=== PATIENT | female | born 1950 | race Caucasian/White ===

== ENCOUNTER 2021-08-11 14:46 | Inpatient (IN) ==
[2021-08-11] MEDS ORDERED: SODIUM CHLORIDE 0.9% 500 ML IV STA (16:52)
[2021-08-11] MEDS ORDERED: dexAMETHasone**PF** 10 MG/ML VIAL IV ONE (16:53)
[2021-08-11] MEDS ORDERED: ACETAMINOPHEN 500 MG TAB PO STA (16:53)
--- NOTE | 2021-08-11 16:59 | Emergency Department Note ---
Impression & Plan 2019 novel coronavirus-infected pneumonia (NCIP), Hypoxia, Weakness, Diarrhea, Myalgia ED Provider Note Provider: Dillon Sam MD DATE OF SERVICE: 08/11/2021 CHIEF COMPLAINT: Cough, shortness of breath/weakness HISTORY OF PRESENT ILLNESS: Patient is a 71-year-old female history of hyperte nsion, RLS, and rheumatoid arthritis on Plaquenil and Humira presenting here today reporting over the past 2 weeks she is developed predominantly chronic cough with occasional clear sputum and some generalized weakness and fatigue. Diffuse myalgias reported. Reports some subjective fevers at home. Patient states her stomach is not been sitting right and she is been nauseous at times. Some diarrhea reported. No falls reported. Patient denies taking Tylenol or Motrin today but is been more weak than normal. She is not vaccinated for Covid but not around anyone known positive for Covid. Her is well at home. REVIEW OF SYSTEMS: A total of 10 review of systems was obtained and negative except as stated above in the HPI. PAST MEDICAL HISTORY: As noted above MEDICATIONS: Reviewed home medications SOCIAL HISTORY: Lives at home with PHYSICAL EXAM: GENERAL: alert and oriented in no acute distress seated in wheelchair fatigued and tachypneic in appearance Head: normocephalic and atraumatic EYES: No injection, discharge or icterus. NECK: Trachea midline and supple. LUNGS: Airway patent. No retractions but somewhat tachypneic. Breath sounds clear HEART: Regular rate and rhythm. No chest wall tenderness ABDOMEN: Soft and non-tender, without guarding or rebound. SKIN: Acyanotic, warm, dry, without rashes EXTREMITIES: Without swelling, tenderness or deformity NEUROLOGICAL: No focal deficits. No aphasia. No facial droop or slurred speech. EK bpm sinus rhythm without PVC or PAC. No acute ST segment elevation or depression. QTC 439. CONTINUOUS CARDIAC MONITORING: was ordered and showed a heart rate of 80s to 110s bpm in normal sinus rhythm to sinus tachycardia Patient's laboratory studies and imaging reviewed. Differential includes Infection, dehydration, metabolic abnormality, hypo/hyperglycemia, electrolyte disturbance, anemia, hypoxia, cardiac sources, intracerebral event, toxicologic, neurologic, as well as other pathologies. IMPRESSION/MEDICAL DECISION MAKING: Patient presents hypoxic in the high 80s on room air with new oxygen requirement several liters nasal cannula now. Borderline fever with some tachycardia question possible infectious source. Cultures and lactate will be obtained. Covid test was sent and she is unvaccinated and this is high in the differential. Fairly benign abdomen on exam. EKG obtained. Basic labs were obtained in addition to the lactate and cultures. Dexamethasone given with concern for hypoxia and Covid. Given a small 500mL amount of IV fluid supplementation. Blood work without anemia or significant leukocytosis or leukopenia. The diarrhea was sent for stool culture and C. difficile however lower suspicion for this. Given some Tylenol and fentanyl for pain and fever. Evidence of a slight KATHRYN likely from dehydration with noted BUN. Borderline hyponatremia. Mild AST elevation likely consistent with Covid infection. No evidence of however significant acute hepatitis or pancreatitis based on labs. Chest x-ray concerning for multifocal inflammatory changes consistent with Covid. No troponin elevation is noted but CRP is elevated 6.99. C. difficile testing negative. Covid testing positive again and this is consistent with her presentation. Given her hypoxia and generalized weakness -- although on reassessment she is feeling a bit better -- feel that further care here at the hospital is indicated. Patient in agreement the hospitalist be contacted. DIAGNOSIS: Hypoxia, weakness, KATHRYN, COVID-19 pneumonia DISPOSITION: Hospitalist will evaluate Patient was agreeable with this plan. Past Med/Surg History Medical History (Updated 08/11/21 @ 19:02 by Dillon Sam M.D.) Hypertension Peptic ulcer Restless leg syndrome Restless leg syndrome Rheumatoid arthritis Rheumatoid arthritis Surgical History History of colonoscopy History of endoscopy Hx of cholecystectomy Hx of cystoscopy Hx of lithotripsy S/P cholecystectomy Family History Other Heart disease Hypertension Kidney disease Social History Smoking Status: Never smoker Second Hand Exposure: No; Hx Alcohol Use: No Hx Substance Use: No Preferred Language: Montenegrin Communication Ability: Effective Telesales Representative Required: No Beliefs That Will Affect Care: None Current Living Situation: Spouse Feels Safe at Home: Yes Assistive Devices: Glasses Allergies Allergies Allergy/AdvReac Type Severity Reaction Status Date / Time Penicillins Allergy Intermediate RASH Verified 07/15/18 08:10 Sulfa (Sulfonamide Allergy Mild Unknown rxn Verified 07/15/18 08:10 Antibiotics) flurbiprofen AdvReac Severe SYNCOPE Verified 07/15/18 08:10 Home Meds Home Medications Medication Instructions Recorded Confirmed cholecalciferol (vitamin D3) 25 1,000 unit PO DAILY 07/13/18 11/23/18 mcg (1,000 unit) tablet (Vitamin D3) lisinopril 5 mg tablet 5 mg PO DAILY 07/13/18 11/23/18 adalimumab 40 mg/0.8 mL 40 mg SUBCUT UD 11/23/18 11/23/18 subcutaneous syringe kit (Humira) alendronate 70 mg tablet (Fosamax) 70 mg PO WK 11/23/18 11/23/18 calcium carbonate 500 mg (1,250 1 tab PO BID 11/23/18 11/23/18 mg)-vitamin D3 200 unit tablet (Calcium 500 + D) hydroxychloroquine 200 mg tablet 200 mg PO DAILY 11/23/18 11/23/18 (Plaquenil) methylprednisolone 32 mg tablet 32 mg PO UD 11/23/18 11/23/18 (Medrol) ondansetron HCl 4 mg tablet 4 mg PO Q12 PRN 11/23/18 11/23/18 (Zofran) ropinirole 1 mg tablet (Requip) 1 mg PO BID 11/23/18 11/23/18 trazodone 50 mg tablet 50 mg PO HS PRN 11/23/18 11/23/18 Previous Rx's Medication Instructions Recorded cyclobenzaprine 5 mg tablet 5 mg PO TID PRN #30 tab 11/23/18 Results & Data (ED) Vital Signs Vital Signs - 24 hr 08/11/21 15:21 08/11/21 17:30 08/11/21 18:00 Temperature 37.9 C H Temperature Source Temporal Artery Scan Pulse Rate 105 H 96 H 96 H Respiratory Rate 22 18 18 Blood Pressure 154/96 H 150/107 H 155/122 H Blood Pressure Mean 115 121 133 Pulse Oximetry 89 L 93 93 Oxygen Delivery Method Room Air Sepsis Recent Fever Within 48 Hours No Sepsis New/Unexplained Change in Mental Status No Sepsis Action Taken by Nursing No Action Required 08/11/21 18:30 Temperature Temperature Source Pulse Rate 90 Respiratory Rate 26 H Blood Pressure Blood Pressure Mean Pulse Oximetry 94 Oxygen Delivery Method Sepsis Recent Fever Within 48 Hours Sepsis New/Unexplained Change in Mental Status Sepsis Action Taken by Nursing Laboratory Data Result diagrams: 08/11/21 17:33 08/11/21 17:33 Lab Results 08/11/21 08/11/21 08/11/21 Range/Units 17:09 17:09 17:33 WBC 7.56 (4.8-10.8) K/uL RBC 5.54 H (4.2-5.4) M/uL Hgb 15.4 (12.0-16.0) g/dL Hct 48.0 H (37-47) % MCV 86.6 (80-100) fL MCH 27.8 (25-34) pg MCHC 32.1 (32-36) g/dL RDW Std Deviation 74.0 H (36.4-46.3) fL RDW Coeff of Jagjit 23.3 H (11.5-14.5) % Plt Count 268 (130-400) K/uL MPV 9.6 (7.4-10.4) fL Immature Gran % (Auto) 0.1 % Neut % (Auto) 88.7 % Lymph % (Auto) 6.5 % [place] % (Auto) 4.6 % Eos % (Auto) 0.0 % Baso % (Auto) 0.1 % Neut # (Auto) 6.70 H (1.4-6.5) K/uL Lymph # (Auto) 0.49 L (1.2-3.4) K/uL [place] # (Auto) 0.35 (0.11-0.59) K/uL Eos # (Auto) 0.00 (0-0.5) K/uL Baso # (Auto) 0.01 (0-0.2) K/uL Immature Gran # (Auto) 0.01 (0.00-0.02) K/uL Anisocytosis Present Echinocytes 1+ Acanthocytes (Spur) 1+ PT (9.0-12.0) Seconds INR (0.9-1.1) Sodium (136-145) mmol/L Potassium (3.5-5.1) mmol/L Chloride (98-107) mmol/L Carbon Dioxide (21-32) mmol/L Anion Gap (3-11) BUN (7-18) mg/dl Creatinine (0.6-1.2) mg/dl Est Cr Clr Drug Dosing Est GFR ( Amer) ml/min Est GFR (Non-Af Amer) ml/min BUN/Creatinine Ratio (10-20) Glucose (70-99) mg/dl Calcium (8.5-10.1) mg/dl Total Bilirubin (0.2-1) mg/dl AST (15-37) U/L ALT (12-78) U/L Alkaline Phosphatase (45-117) U/L Troponin I (0-0.045) ng/ml C-Reactive Protein (0-0.29) mg/dl Total Protein (6.4-8.2) gm/dl Albumin (3.4-5.0) gm/dl Globulin (2.5-4.0) gm/dl Albumin/Globulin Ratio (0.9-2) Lipase (73-393) U/L Procalcitonin (0-0.5) ng/ml Specimen Hemolysis Stl C. diff Tox B Gene (Neg) COVID-19 Eval Order Covid19 at [facility] SARS-CoV-2 (PCR) POSITIVE A* (Negative) 08/11/21 08/11/21 08/11/21 Range/Units 17:33 17:33 17:33 WBC (4.8-10.8) K/uL RBC (4.2-5.4) M/uL Hgb (12.0-16.0) g/dL Hct (37-47) % MCV (80-100) fL MCH (25-34) pg MCHC (32-36) g/dL RDW Std Deviation (36.4-46.3) fL RDW Coeff of Jagjit (11.5-14.5) % Plt Count (130-400) K/uL MPV (7.4-10.4) fL Immature Gran % (Auto) % Neut % (Auto) % Lymph % (Auto) % [place] % (Auto) % Eos % (Auto) % Baso % (Auto) % Neut # (Auto) (1.4-6.5) K/uL Lymph # (Auto) (1.2-3.4) K/uL [place] # (Auto) (0.11-0.59) K/uL Eos # (Auto) (0-0.5) K/uL Baso # (Auto) (0-0.2) K/uL Immature Gran # (Auto) (0.00-0.02) K/uL Anisocytosis Echinocytes Acanthocytes (Spur) PT 10.5 (9.0-12.0) Seconds INR 1.0 (0.9-1.1) Sodium 135 L (136-145) mmol/L Potassium 3.9 (3.5-5.1) mmol/L Chloride 107 (98-107) mmol/L Carbon Dioxide 19 L (21-32) mmol/L Anion Gap 9.0 (3-11) BUN 39 H (7-18) mg/dl Creatinine 1.66 H (0.6-1.2) mg/dl Est Cr Clr Drug Dosing Not Reportable Est GFR ( Amer) 35.3 ml/min Est GFR (Non-Af Amer) 30.5 ml/min BUN/Creatinine Ratio 23.2 H (10-20) Glucose 140 H (70-99) mg/dl Calcium 9.3 (8.5-10.1) mg/dl Total Bilirubin 0.4 (0.2-1) mg/dl AST 49 H (15-37) U/L ALT 28 (12-78) U/L Alkaline Phosphatase 73 (45-117) U/L Troponin I < 0.015 (0-0.045) ng/ml C-Reactive Protein 6.99 H (0-0.29) mg/dl Total Protein 7.7 (6.4-8.2) gm/dl Albumin 3.4 (3.4-5.0) gm/dl Globulin 4.3 H (2.5-4.0) gm/dl Albumin/Globulin Ratio 0.8 L (0.9-2) Lipase 224 (73-393) U/L Procalcitonin 0.27 (0-0.5) ng/ml Specimen Hemolysis Stl C. diff Tox B Gene (Neg) COVID-19 Eval Order SARS-CoV-2 (PCR) (Negative) 08/11/21 Range/Units 17:40 WBC (4.8-10.8) K/uL RBC (4.2-5.4) M/uL Hgb (12.0-16.0) g/dL Hct (37-47) % MCV (80-100) fL MCH (25-34) pg MCHC (32-36) g/dL RDW Std Deviation (36.4-46.3) fL RDW Coeff of Jagjit (11.5-14.5) % Plt Count (130-400) K/uL MPV (7.4-10.4) fL Immature Gran % (Auto) % Neut % (Auto) % Lymph % (Auto) % [place] % (Auto) % Eos % (Auto) % Baso % (Auto) % Neut # (Auto) (1.4-6.5) K/uL Lymph # (Auto) (1.2-3.4) K/uL [place] # (Auto) (0.11-0.59) K/uL Eos # (Auto) (0-0.5) K/uL Baso # (Auto) (0-0.2) K/uL Immature Gran # (Auto) (0.00-0.02) K/uL Anisocytosis Echinocytes Acanthocytes (Spur) PT (9.0-12.0) Seconds INR (0.9-1.1) Sodium (136-145) mmol/L Potassium (3.5-5.1) mmol/L Chloride (98-107) mmol/L Carbon Dioxide (21-32) mmol/L Anion Gap (3-11) BUN (7-18) mg/dl Creatinine (0.6-1.2) mg/dl Est Cr Clr Drug Dosing Est GFR ( Amer) ml/min Est GFR (Non-Af Amer) ml/min BUN/Creatinine Ratio (10-20) Glucose (70-99) mg/dl Calcium (8.5-10.1) mg/dl Total Bilirubin (0.2-1) mg/dl AST (15-37) U/L ALT (12-78) U/L Alkaline Phosphatase (45-117) U/L Troponin I (0-0.045) ng/ml C-Reactive Protein (0-0.29) mg/dl Total Protein (6.4-8.2) gm/dl Albumin (3.4-5.0) gm/dl Globulin (2.5-4.0) gm/dl Albumin/Globulin Ratio (0.9-2) Lipase (73-393) U/L Procalcitonin (0-0.5) ng/ml Specimen Hemolysis Stl C. diff Tox B Gene Negative Cdiff Gene (Neg) COVID-19 Eval Order SARS-CoV-2 (PCR) (Negative) Administered Medications Discontinued Medications Acetaminophen (Acetaminophen 500 Mg Tab) 1,000 mg PO NOW STA Stop: 08/11/21 16:54 Last Admin: 08/11/21 17:44 Dose: 1,000 mg Documented by: [id number] Dexamethasone Sodium Phosphate (DexamethasonePf 10 Mg/Ml Vial) 6 mg IV NOW ONE Stop: 08/11/21 16:54 Last Admin: 08/11/21 17:47 Dose: 6 mg Documented by: [id number] Fentanyl Citrate (Fentanyl Citrate 100 Mcg/2 Ml Vial) 50 mcg IV NOW STA Stop: 08/11/21 17:43 Last Admin: 08/11/21 17:50 Dose: 50 mcg Documented by: [id number] Sodium Chloride (Nss) 500 mls @ 999 mls/hr IV .Q31M STA Stop: 08/11/21 17:22 Last Infusion: 08/11/21 18:21 Dose: 0 mls/hr Documented by: [id number] Admin: 08/11/21 17:47 Dose: 999 mls/hr Documented by: [id number] Discharge Plan Visit Data Chief Complaint: Cough Stated Complaint: COUGH NAUSEA ED Provider: Dillon Sam Discharge Problem: 2019 novel coronavirus-infected pneumonia (NCIP), Hypoxia, Weakness, Diarrhea, Myalgia Patient Disposition: Being Evaluated by Hospitalist Forms Stand Alone Forms: [facility] Prescriptions Prescriptions: No Action ropinirole [Requip] 1 mg tablet 1 mg PO BID RF: 0 trazodone 50 mg Tablet 50 mg PO HS PRN (Reason: Sleep) RF: 0 ondansetron HCl [Zofran] 4 mg Tablet 4 mg PO Q12 PRN (Reason: Nausea) RF: 0 methylprednisolone [Medrol] 32 mg tablet 32 mg PO UD RF: 0 alendronate [Fosamax] 70 mg tablet 70 mg PO WK RF: 0 hydroxychloroquine [Plaquenil] 200 mg tablet 200 mg PO DAILY RF: 0 calcium carbonate-vitamin D3 [Calcium 500 + D] 500 mg(1,250mg) -200 unit Tablet 1 tab PO BID RF: 0 cyclobenzaprine 5 mg tablet 5 mg PO TID PRN (Reason: muscle spasm) Qty: 30 RF: 0 adalimumab [Humira] 40 mg/0.8 mL Syringe Kit 40 mg SUBCUT UD RF: 0 lisinopril 5 mg Tablet 5 mg PO DAILY RF: 0 cholecalciferol (vitamin D3) [Vitamin D3] 1,000 unit Tablet 1,000 unit PO DAILY RF: 0 Referrals Referrals: Dillon Viera PA-C [Primary Care Provider] -
[2021-08-11] MEDS ORDERED: fentaNYL citrate 100 MCG/2 ML VIAL IV STA (17:42)
[2021-08-11 17:45] LABS: Basophils # (auto) 0.01 K/uL (0-0.2); Basophils % (auto) 0.1 %; Hemoglobin 15.4 g/dL (12.0-16.0); Immature Granulocytes # (auto) 0.01 K/uL (0.00-0.02); Immature Granulocytes % (auto) 0.1 %; Lymphocytes # (auto) 0.49 K/uL (1.2-3.4); Lymphocytes % (auto) 6.5 %; Mean Corpuscular Hemoglobin 27.8 pg (25-34); Mean Corpuscular Hgb Conc 32.1 g/dL (32-36); Mean Corpuscular Volume 86.6 fL (80-100); Mean Platelet Volume 9.6 fL (7.4-10.4); Monocytes # (auto) 0.35 K/uL (0.11-0.59); Monocytes % (auto) 4.6 %; Neutrophils % (auto) 88.7 %; Platelet Count 268 K/uL (130-400); RDW Coefficient of Variation 23.3 % (11.5-14.5); Red Blood Count 5.54 M/uL (4.2-5.4); White Blood Count 7.56 K/uL (4.8-10.8)
[2021-08-11 17:54] LABS: Prothrombin Time 10.5 Seconds (9.0-12.0)
[2021-08-11 18:00] LABS: Acanthocytes 1+; Anisocytosis Present; Echinocytes 1+
[2021-08-11 18:07] LABS: Alanine Aminotransferase 28 U/L (12-78); Albumin Level 3.4 gm/dl (3.4-5.0); Aspartate Aminotransferase 49 U/L (15-37); BUN Creatinine Ratio 23.2 (10-20); Blood Urea Nitrogen 39 mg/dl (7-18); Calcium 9.3 mg/dl (8.5-10.1); Carbon Dioxide 19 mmol/L (21-32); Chloride 107 mmol/L (98-107); Est GFR (African American) 35.3 ml/min; Est GFR (Non-African American) 30.5 ml/min; Glucose 140 mg/dl (70-99); Lipase 224 U/L (73-393); Potassium 3.9 mmol/L (3.5-5.1); Sodium 135 mmol/L (136-145)
[2021-08-11 18:19] LABS: Albumin Globulin Ratio 0.8 (0.9-2); Alkaline Phosphatase 73 U/L (45-117); Bilirubin,Total 0.4 mg/dl (0.2-1); C Reactive Protein 6.99 mg/dl (0-0.29); Globulin 4.3 gm/dl (2.5-4.0); Total Protein 7.7 gm/dl (6.4-8.2); Troponin I < 0.015 ng/ml (0-0.045)
--- NOTE | 2021-08-11 19:17 | XRay Report ---
SINGLE VIEW CHEST CLINICAL HISTORY: Dyspnea. FINDINGS: An AP, portable, upright chest radiograph is compared to study dated 06/20/2016. A hiatal he rnia is noted. The cardiomediastinal silhouette is unremarkable. Multifocal airspace consolidation is seen throughout both lungs, most confluent in the right upper lobe. No large pleural effusion or pne umothorax is identified. The skeletal structures are osteopenic. The bony thorax is grossly intact. IMPRESSION: Multifocal airspace consolidation is typical for pneumonia. Clinical correlation will be required and radiographic follow-up to resolution is recommended. ACT 112: Negative or not required by law. Electronically signed by: Jamie Garcia M.D. 08/11/2021 7:16 PM
[2021-08-11] MEDS ORDERED: LEVALBUTEROL TARTRATE 15 GM HFA.AER.AD INH STA (19:46)
[2021-08-11] MEDS ORDERED: NSS + 20MEQ KCL 20 MEQ/1,000 ML BAG IV ONE (19:46)
[2021-08-11 19:59] LABS: Magnesium 2.7 mg/dl (1.8-2.4)
--- NOTE | 2021-08-11 21:18 | History & Physical Report ---
Date of Service August 11, 2021 Assessment & Plan (1) Hypoxia: Plan: Secondary to severe COVID-19 pneumonia hypertension, BP on the lower side ARF secondary to illness, poor p.o. intake rheumatoid arthritis, stable on regimen prediabetes, recent outpatient hemoglobin A1c of 6.02 June 2021 chronic GI bleed as per records, hemoglobin within normal limits Medical telemetry Supplemental O2 Decadron and Remdesivir for severe COVID-19 pneumonia. Patient refusing Remdesivir for now. Pulmonary consultation if without improvement Baseline UA, monitor creatinine response to IVF, hold home inhibitor until creatinine back to baseline DVT prophylaxis SCDs RE chronic GI bleed as per records Full code Patient requests for her to be updated of progress. Mr. Sathya Thomas, contact #[phone]. Text document was generated using [employer] voice recognition software. It may contain grammatical or spelling errors. Kindly contact undersigned for clarification of any documentation item in question. History of Present Illness Chief Complaint: Cough, shortness of breath Primary Care Provider: Dillon Viera PA-C History obtained from patient and records. Medical history significant for hypertension, rheumatoid arthritis, GERD, prediabetes, chronic GI bleed as per records. Last confinement June 2016 for UGI B secondary to esophageal ulcer. Patient discharged on Protonix course. 2 weeks history of cough productive of clear sputum, subjective fever at home, nausea, poor appetite, muscle aches, loose stools without abdominal pain. Patient denies chest pain. Worsening shortness of breath. Decadron administered at the ER after positive COVID-19 test noted. Medical History as above Surgical History : ESWL, cholecystectomy Family History : Colon cancer, heart disease, hypertension, stroke Personal/Social history : Non-smoker, no EtOH intake, retired [employer] Allergies Allergy/AdvReac Type Severity Reaction Status Date / Time Penicillins Allergy Intermediate RASH Verified 08/11/21 20:16 Sulfa (Sulfonamide Allergy Mild Unknown rxn Verified 08/11/21 20:16 Antibiotics) tofacitinib [From Xeljanz] Allergy Unknown Verified 08/11/21 20:46 flurbiprofen AdvReac Severe SYNCOPE Verified 08/11/21 20:16 Home Medications Medication Instructions Recorded Confirmed Type lisinopril 5 mg tablet 5 mg PO DAILY 07/13/18 08/11/21 History alendronate 70 mg tablet (Fosamax) 70 mg PO WK 11/23/18 08/11/21 History calcium carbonate 500 mg (1,250 1 tab PO BID 11/23/18 08/11/21 History mg)-vitamin D3 200 unit tablet (Calcium 500 + D) ondansetron HCl 4 mg tablet 4 mg PO Q8 PRN 11/23/18 08/11/21 History (Zofran) trazodone 50 mg tablet 50 mg PO HS 11/23/18 08/11/21 History ferrous sulfate 325 mg (65 mg 325 mg PO DAILY 08/11/21 08/11/21 History iron) tablet (iron) gabapentin 400 mg capsule 400 mg PO QID 08/11/21 08/11/21 History pramipexole 0.5 mg tablet 0.5 mg PO TID 08/11/21 08/11/21 History Past Med/Surg History Medical History (Updated 08/11/21 @ 19:02 by Dillon Sam M.D.) Hypertension Peptic ulcer Restless leg syndrome Restless leg syndrome Rheumatoid arthritis Rheumatoid arthritis Surgical History History of colonoscopy History of endoscopy Hx of cholecystectomy Hx of cystoscopy Hx of lithotripsy S/P cholecystectomy Family History Other Heart disease Hypertension Kidney disease Social History Smoking Status: Never smoker Second Hand Exposure: Yes; Do You Dip or Chew Tobacco: No; Tobacco Cessation Education Requested by Patient: No Hx Alcohol Use: No Hx Substance Use: No Preferred Language: Tristanian Communication Ability: Effective Certified Orthotist/Pedorthist Required: No Beliefs That Will Affect Care: None Current Living Situation: Spouse Other Information That Helps Us Care for You: No Feels Safe at Home: Yes Safety Concerns: Feels Safe At This Time Assistive Devices: Walker Assistive Devices Comment: requiring oxygen now and assiance with ambulation Review of Systems Review of Systems: As per HPI, all 10 systems reviewed, all other ROS negative Physical Exam Physical Exam: GENERAL: Comfortable, slightly anxious, pleasant, looks younger for stated age, obese, no respiratory distress SKIN: Normal color, warm HEENT: Bespectacled, [place] palpebral conjunctivae, no ptosis, dry buccal mucosa, nasal cannula in place NECK : Supple, short neck, no tenderness CHEST : Decreased breath sounds, occasional expiratory wheezes, no tenderness HEART : RRR, no obvious murmurs ABDOMEN: Some distention, nontender EXTREMITIES : Minimal LE swelling, no LE tenderness, no other conspicuous deformities noted NEUROLOGIC : Coherent, no facial asymmetry, no other gross focality Results & Data Results & Data ([facility]) Vital Signs (Past 12 Hours) Vital Signs Temp Pulse Resp BP Pulse Ox 08/11/21 21:00 77 20 96 08/11/21 20:30 76 21 106/65 08/11/21 20:00 75 23 94 08/11/21 19:30 85 15 08/11/21 19:00 87 19 93 08/11/21 18:30 90 26 H 94 08/11/21 18:00 96 H 18 155/122 H 93 08/11/21 17:30 96 H 18 150/107 H 93 08/11/21 15:21 37.9 C H 105 H 22 154/96 H 89 L Laboratory Results Laboratory Results WBC 7.56 K/uL (4.8-10.8) 08/11/21 17:33 RBC 5.54 M/uL (4.2-5.4) H 08/11/21 17:33 Hgb 15.4 g/dL (12.0-16.0) 08/11/21 17:33 Hct 48.0 % (37-47) H 08/11/21 17:33 MCV 86.6 fL (80-100) 08/11/21 17:33 MCH 27.8 pg (25-34) 08/11/21 17:33 MCHC 32.1 g/dL (32-36) 08/11/21 17:33 RDW Std Deviation 74.0 fL (36.4-46.3) H 08/11/21 17:33 RDW Coeff of Jagjit 23.3 % (11.5-14.5) H 08/11/21 17:33 Plt Count 268 K/uL (130-400) 08/11/21 17:33 MPV 9.6 fL (7.4-10.4) 08/11/21 17:33 Immature Gran % (Auto) 0.1 % 08/11/21 17:33 Neut % (Auto) 88.7 % 08/11/21 17:33 Lymph % (Auto) 6.5 % 08/11/21 17:33 [place] % (Auto) 4.6 % 08/11/21 17:33 Eos % (Auto) 0.0 % 08/11/21 17:33 Baso % (Auto) 0.1 % 08/11/21 17:33 Neut # (Auto) 6.70 K/uL (1.4-6.5) H 08/11/21 17:33 Lymph # (Auto) 0.49 K/uL (1.2-3.4) L 08/11/21 17:33 [place] # (Auto) 0.35 K/uL (0.11-0.59) 08/11/21 17:33 Eos # (Auto) 0.00 K/uL (0-0.5) 08/11/21 17:33 Baso # (Auto) 0.01 K/uL (0-0.2) 08/11/21 17: Immature Gran # (Auto) 0.01 K/uL (0.00-0.02) 08/11/21 17:33 Anisocytosis Present 08/11/21 17:33 Echinocytes 1+ 08/11/21 17:33 Acanthocytes (Spur) 1+ 08/11/21 17:33 PT 10.5 Seconds (9.0-12.0) 08/11/21 17:33 INR 1.0 (0.9-1.1) 08/11/21 17:33 Sodium 135 mmol/L (136-145) L 08/11/21 17:33 Potassium 3.9 mmol/L (3.5-5.1) 08/11/21 17:33 Chloride 107 mmol/L (98-107) 08/11/21 17:33 Carbon Dioxide 19 mmol/L (21-32) L 08/11/21 17:33 Anion Gap 9.0 (3-11) 08/11/21 17:33 BUN 39 mg/dl (7-18) H 08/11/21 17:33 Creatinine 1.66 mg/dl (0.6-1.2) H 08/11/21 17:33 Est Cr Clr Drug Dosing Not Reportable 08/11/21 17:33 Est GFR ( Amer) 35.3 ml/min 08/11/21 17:33 Est GFR (Non-Af Amer) 30.5 ml/min 08/11/21 17:33 BUN/Creatinine Ratio 23.2 (10-20) H 08/11/21 17:33 Glucose 140 mg/dl (70-99) H 08/11/21 17:33 Lactate 1.5 mmol/L (0.4-2.0) 08/11/21 18:33 Calcium 9.3 mg/dl (8.5-10.1) 08/11/21 17:33 Magnesium 2.7 mg/dl (1.8-2.4) H 08/11/21 17:33 Total Bilirubin 0.4 mg/dl (0.2-1) 08/11/21 17:33 AST 49 U/L (15-37) H 08/11/21 17:33 ALT 28 U/L (12-78) 08/11/21 17:33 Alkaline Phosphatase 73 U/L (45-117) 08/11/21 17:33 Troponin I < 0.015 ng/ml (0-0.045) 08/11/21 17:33 C-Reactive Protein 6.99 mg/dl (0-0.29) H 08/11/21 17:33 Total Protein 7.7 gm/dl (6.4-8.2) 08/11/21 17:33 Albumin 3.4 gm/dl (3.4-5.0) 08/11/21 17:33 Globulin 4.3 gm/dl (2.5-4.0) H 08/11/21 17:33 Albumin/Globulin Ratio 0.8 (0.9-2) L 08/11/21 17:33 Lipase 224 U/L (73-393) 08/11/21 17:33 Procalcitonin 0.27 ng/ml (0-0.5) 08/11/21 17:33 Specimen Hemolysis 08/11/21 17:33 Stl C. diff Tox B Gene Negative Cdiff Gene (Neg) 08/11/21 17:40 COVID-19 Eval Order Covid19 at [facility] 08/11/21 17:09 SARS-CoV-2 (PCR) POSITIVE (Negative) A* 08/11/21 17:09 Impressions Chest X-Ray 10/10/21 16:52 SINGLE VIEW CHEST CLINICAL HISTORY: Dyspnea. FINDINGS: An AP, portable, upright chest radiograph is compared to study dated 06/20/2016. A hiatal hernia is noted. The cardiomediastinal silhouette is unremarkable. Multifocal airspace consolidation is seen throughout both lungs, most confluent in the right upper lobe. No large pleural effusion or pneumothorax is identified. The skeletal structures are osteopenic. The bony thorax is grossly intact. IMPRESSION: Multifocal airspace consolidation is typical for pneumonia. Clinical correlation will be required and radiographic follow-up to resolution is recommended. ACT 112: Negative or not required by law. Electronically signed by: Jamie Garcia M.D. 08/11/2021 7:16 PM Diagnostic Findings EKG as per my interpretation rate 95, NSR, LAD, LAFB, T wave abnormalities inferior leads
[2021-08-11] MEDS ORDERED: LEVALBUTEROL TARTRATE 15 GM HFA.AER.AD INH PRN (23:54)
[2021-08-12 06:34] LABS: Hematocrit (blood only) 40.9 % (37-47); Hemoglobin 13.2 g/dL (12.0-16.0); Lymphocytes # (auto) 0.28 K/uL (1.2-3.4); Mean Corpuscular Hemoglobin 27.6 pg (25-34); Mean Corpuscular Hgb Conc 32.3 g/dL (32-36); Mean Corpuscular Volume 85.6 fL (80-100); Mean Platelet Volume 10.2 fL (7.4-10.4); Monocytes # (auto) 0.17 K/uL (0.11-0.59); Neutrophils # (auto) 2.36 K/uL (1.4-6.5); Platelet Count 224 K/uL (130-400); RDW Coefficient of Variation 23.1 % (11.5-14.5); RDW Standard Deviation 71.8 fL (36.4-46.3); Red Blood Count 4.78 M/uL (4.2-5.4); White Blood Count 2.81 K/uL (4.8-10.8)
[2021-08-12 06:58] LABS: BUN Creatinine Ratio 38.1 (10-20); Calcium 8.1 mg/dl (8.5-10.1); Creatinine Clr Calc Pharmacy 45.9 ml/min; Est GFR (African American) 62.9 ml/min; Est GFR (Non-African American) 54.3 ml/min; Potassium 3.5 mmol/L (3.5-5.1)
[2021-08-12 07:12] LABS: Thyroid Stimulating Hormone 0.204 uIu/ml (0.300-4.500)
[2021-08-12 07:20] LABS: Anisocytosis Present; Echinocytes 1+
[2021-08-12 07:31] LABS: T4 Free Thyroxine 1.43 ng/dl (0.8-1.6)
[2021-08-12] MEDS ORDERED: PNEUMOCOCCAL POLYSACCHARIDES 25 MCG/0.5 ML VIAL/SYR IM ONE (08:00)
[2021-08-12] MEDS: FERROUS SULFATE 325 MG TAB PO SCH (08:03)
[2021-08-12] MEDS: dexAMETHasone 6 MG in SYRINGE 0 ML IV SCH (08:03)
[2021-08-12] MEDS: GABAPENTIN 400 MG CAP PO SCH ×4 (08:04→19:59)
[2021-08-12] MEDS: PRAMIPEXOLE DIHYDROCHLO 0.5 MG TAB PO SCH ×3 (08:04→19:59)
[2021-08-12 09:02] LABS: Appearance Urine Cloudy (Clear); Bacteria Urine Automated 4+ (Negative); Bilirubin Urine Negative (Negative); Blood Urine 2+ (Negative); Color Urine Dark Yellow; Epithelial Cell Urine Auto >30 /lpf (0-5); Glucose Urine UA Negative (Negative); Ketones Urine Negative (Negative); Leukocyte Esterase Urine 2+ (Negative); Nitrite Urine Negative (Negative); Protein Urine 2+ (Negative); Specific Gravity Urine 1.022 (1.000-1.030); Urobilinogen Urine Negative (Negative); WBC Urine Automated >30 /hpf (0-5); pH Urine 5.5 (4.5-7.5)
--- NOTE | 2021-08-12 14:11 | Electrocardiogram Report ---
Test Reason : Blood Pressure : / mmHG Vent. Rate : 097 BPM Atrial Rate : 097 BPM P-R Int : 172 ms QRS Dur : 086 ms QT Int : 346 ms P-R-T Axes : 017 -09 011 degrees QTc Int : 439 ms Poor data quality, interpretation may be adversely affected Sinus rhythm Poor R wave progression, consider anterior [place] vs. lead placement vs. LVH Abnormal ECG When compared with ECG of 22-JUN-2016 06:43, Significant changes have occurred Confirmed by Aaron Cristina ([id number]) on 08/12/2021 2:11:27 PM Referred By: REFERRED SELF Confirmed By:Aaron Cristina
[2021-08-12] MEDS ORDERED: REMDESIVIR 200 MG in SODIUM CHLORIDE 0.9% 210 ML IV ONE (17:00)
[2021-08-12] MEDS: guaiFENesin 200 MG TAB PO SCH ×2 (17:53→23:35)
[2021-08-12] MEDS ORDERED: Nursing to Pharmacy Communication SCH (18:45)
[2021-08-12] MEDS: SODIUM CHLORIDE 0.9% 10ML FLUSH IV SCH (20:00)
[2021-08-12] MEDS: traZODone HCL 50 MG TAB PO SCH (20:00)
--- NOTE | 2021-08-12 23:42 | Hospitalist Progress Note ---
Date of Service August 12, 2021 Assessment & Plan (1) 2019 novel coronavirus-infected pneumonia (NCIP): (2) Hypoxia: Plan: COVID-19 pneumonia Present on admission with worsening SOB associated with Hypoxia Testing Positive for COVID 19 Pt did not vaccinate Pt was started on Dexamethasone 6mg IV daily CXR showed Multifocal airspace consolidation is typical for pneumonia Continue dexametasone 6mg daily Admitting team discussed with pt about Redemsivir Pt requested to get Remdesevir Major sides effect discussed such as acute liver failure Will monitor liver enzymes while on Remdesivir Will monitor inflammatory markers such as CRP, ferritin, ESR Continue neb treatment Continue oxygen supplement Patient was encouraged to probe KATHRYN Possible related to poor intake Creatinine 1.6 on admission Creatinine improves to 1.2 Hypertension Continue monitor BP DVT prophylaxis SCDs RE chronic GI bleed as per records Full code Patient requests for her to be updated of progress. Mr. Sathya Thomas, contact #[phone]. Admission and Anticipated Discharge Date Admission Date: August 11, 2021 Subjective Pt was seen and examined for follow up of SOB due to covid 19 Lying in be with no acute distress Pt said that her breathing stable Continue required oxygen supplement Review of Systems Review of Systems: All systems reviewed & are unremarkable except as noted in Subjective Physical Exam 2 Physical Exam: General- No acute distress Head- atraumatic Eyes- PERRL, EOMI, ENT- oropharynx clear Neck- supple, no JVD Lungs- +diminished BS Heart- regular rhythm; no murmur Abdomen- normal bowel sounds, soft, nontender Extremities- no calf tenderness Neuro- alert, oriented x 3; PERRL, EOMI; no facial palsy; no dysarthria Skin- warm & dry Results & Data Results & Data ([facility]) Vital Signs (Past 12 Hours) Vital Signs Temp Pulse Pulse Resp BP Pulse Ox 08/12/21 23:38 37.3 C 110 H 16 151/69 H 94 08/12/21 19:50 36.4 C L 08/12/21 19:02 37.6 C H 87 20 123/64 92 08/12/21 15:39 93 H 08/12/21 15:15 36.5 C 91 H 18 114/79 90 08/12/21 11:45 36.5 C 81 18 115/73 91
[2021-08-13] MEDS: CALCIUM CARBONATE 500 MG CHEWABLE TAB PO PRN ×2 (00:19→11:59)
[2021-08-13] MEDS: ACETAMINOPHEN 325 MG TAB PO PRN ×2 (01:05→05:21)
[2021-08-13] MEDS: guaiFENesin 200 MG TAB PO SCH ×4 (05:21→20:45)
[2021-08-13] MEDS: dexAMETHasone 6 MG in SYRINGE 0 ML IV SCH (08:17)
[2021-08-13] MEDS: PRAMIPEXOLE DIHYDROCHLO 0.5 MG TAB PO SCH ×3 (08:18→20:45)
[2021-08-13] MEDS: FERROUS SULFATE 325 MG TAB PO SCH (08:18)
[2021-08-13] MEDS: GABAPENTIN 400 MG CAP PO SCH ×4 (08:18→20:46)
[2021-08-13 09:28] LABS: Albumin Globulin Ratio 0.7 (0.9-2); Albumin Level 2.3 gm/dl (3.4-5.0); BUN Creatinine Ratio 33.9 (10-20); Bilirubin,Total 0.3 mg/dl (0.2-1); C Reactive Protein 2.41 mg/dl (0-0.29); Calcium 8.4 mg/dl (8.5-10.1); Creatinine Clr Calc Pharmacy 46.8 ml/min; Est GFR (African American) 62.9 ml/min; Est GFR (Non-African American) 54.3 ml/min; Ferritin 366.9 ng/ml (8-388); Globulin 3.4 gm/dl (2.5-4.0); Potassium 3.9 mmol/L (3.5-5.1); Total Protein 5.7 gm/dl (6.4-8.2)
--- NOTE | 2021-08-13 15:20 | Electrocardiogram Report ---
Test Reason : Blood Pressure : / mmHG Vent. Rate : 113 BPM Atrial Rate : 113 BPM P-R Int : 150 ms QRS Dur : 066 ms QT Int : 282 ms P-R-T Axes : 047 -14 036 degrees QTc Int : 386 ms Sinus tachycardia Low voltage QRS Cannot rule out Inferior infarct (cited on or before 13-AUG-2021) Abnormal ECG When compared with ECG of 11-AUG-2021 17:56, Criteria for Anterior infarct are no longer Present Criteria for Anterolateral infarct are no longer Present Confirmed by Aaron Cristina ([id number]) on 08/13/2021 3:20:37 PM Referred By: REFERRED SELF Confirmed By:Aaron Cristina
[2021-08-13] MEDS: REMDESIVIR 100 MG in SODIUM CHLORIDE 0.9% 230 ML IV SCH (20:45)
[2021-08-13] MEDS: traZODone HCL 50 MG TAB PO SCH (20:45)
[2021-08-13] MEDS: SODIUM CHLORIDE 0.9% 10ML FLUSH IV SCH (20:46)
--- NOTE | 2021-08-14 03:37 | Hospitalist Progress Note ---
Date of Service August 13, 2021 Assessment & Plan (1) 2019 novel coronavirus-infected pneumonia (NCIP): (2) Hypoxia: Plan: COVID-19 pneumonia Present on admission with worsening SOB associated with Hypoxia Testing Positive for COVID 19 Pt did not vaccinate Pt was started on Dexamethasone 6mg IV daily CXR showed Multifocal airspace consolidation is typical for pneumonia Continue dexametasone 6mg daily Admitting team discussed with pt about Redemsivir Pt requested to get Remdesevir Major sides effect discussed such as acute liver failure Will monitor liver enzymes while on Remdesivir inflammatory markers such as ESR and ferritin normal and CRP 2.4 Continue neb treatment Currently on 4L NC Consider to give a low dose lasix 20mg x1 Patient was encouraged to proning KATHRYN Possible related to poor intake Creatinine 1.6 on admission Creatinine improves to 1.2 stable Hypertension Continue monitor BP DVT prophylaxis SCDs RE chronic GI bleed as per records Full code Patient requests for her to be updated of progress. Mr. Sathya Thomas, contact #[phone]. Admission and Anticipated Discharge Date Admission Date: August 11, 2021 Subjective Pt was seen and examined for follow up of SOB due to covid 19 Lying in be with no acute distress Pt said that her breathing stable Continue required oxygen supplement Review of Systems Review of Systems: All systems reviewed & are unremarkable except as noted in Subjective Physical Exam Physical Exam: General- No acute distress Head- atraumatic Eyes- PERRL, EOMI, ENT- oropharynx clear Neck- supple, no JVD Lungs- +diminished BS Heart- regular rhythm; no murmur Abdomen- normal bowel sounds, soft, nontender Extremities- no calf tenderness Neuro- alert, oriented x 3; PERRL, EOMI; no facial palsy; no dysarthria Skin- warm & dry Results & Data Results & Data ([facility]) Vital Signs (Past 12 Hours) Vital Signs Temp Pulse Pulse Resp BP Pulse Ox 08/14/21 03:05 37.1 C 85 26 H 154/85 H 88 L 08/14/21 01:00 88 08/13/21 20:02 90 08/13/21 19:52 37 C 79 28 H 136/82 87 L
[2021-08-14] MEDS ORDERED: FUROSEMIDE 20 MG in SYRINGE 0 ML IV ONE (03:38)
[2021-08-14] MEDS ORDERED: FUROSEMIDE 40 MG/4 ML VIAL IV ONE ×2 (04:00→05:15)
[2021-08-14] MEDS: guaiFENesin 200 MG TAB PO SCH ×4 (05:17→20:52)
[2021-08-14 08:21] LABS: Albumin Level 2.9 gm/dl (3.4-5.0); BUN Creatinine Ratio 39.8 (10-20); C Reactive Protein 3.03 mg/dl (0-0.29); Calcium 8.9 mg/dl (8.5-10.1); Creatinine Clr Calc Pharmacy 54.8 ml/min; Est GFR (African American) 76.1 ml/min; Est GFR (Non-African American) 65.6 ml/min; Potassium 3.5 mmol/L (3.5-5.1)
[2021-08-14] MEDS: dexAMETHasone 6 MG in SYRINGE 0 ML IV SCH (08:21)
[2021-08-14 08:24] LABS: Albumin Globulin Ratio 0.8 (0.9-2); Bilirubin,Total 0.5 mg/dl (0.2-1); Globulin 3.7 gm/dl (2.5-4.0); Total Protein 6.6 gm/dl (6.4-8.2)
--- NOTE | 2021-08-14 09:15 | XRay Report ---
XR chest 1V portable CLINICAL HISTORY: worsening hypoxia, +covid COMPARISON STUDY: Chest radiograph August 11, 2021. FINDINGS: Lung volumes are diminished. No pneumothorax or pleural effusion. Extensive bilateral airsp talha opacities have slightly progressed. Cardiomediastinal silhouette is stable. There is a hiatal her taylor. IMPRESSION: Progression of extensive bilateral airspace opacities consistent with multifocal pneumon ia. ACT 112: Negative or not required by law. Electronically signed by: Andre Coreas M.D. 08/14/2021 9:14 AM
[2021-08-14 09:56] LABS: Base Excess ABG 0.3 mEq/L (-9-1.8); HCO3 ABG 22 mmol/L (19-24); Oxygen Saturation ABG 96.4 % (90-95); PCO2 ABG 29 mmHg (35-46); PO2 ABG 76 mmHg (80-95)
[2021-08-14 09:58] LABS: Allen Test Pos (Pos)
[2021-08-14] MEDS: PRAMIPEXOLE DIHYDROCHLO 0.5 MG TAB PO SCH ×3 (11:16→20:53)
[2021-08-14] MEDS: FERROUS SULFATE 325 MG TAB PO SCH (11:16)
[2021-08-14] MEDS: GABAPENTIN 400 MG CAP PO SCH ×4 (11:16→20:52)
--- NOTE | 2021-08-14 15:16 | Hospitalist Progress Note ---
Date of Service August 14, 2021 Assessment & Plan (1) Acute respiratory failure due to severe acute respiratory syndrome c oronavirus 2 (SARS-CoV-2) infection: Plan: Unvaccinated patient with progressed need for oxygen supplementation, now on max high flow. She clarified for garage helper overnight that she is a DO NOT INTUBATE but is okay with CPR. She confirms this for me now. We discussed the importance of proning and she is willing to try this now. Encouraged at least 2 hours at a time. She is on remdesivir and dexamethasone daily. She is on scheduled guaifenesin. Continue to encourage proning and supportive care. Follow clinically. CRP slightly increased from 2.4 yesterday to 3 today (2) Pneumonia due to COVID-19 virus: Plan: Plan as above (3) Weakness: Plan: Encourage PT/OT when appropriate. Currently patient is so weak she needs assistance to sit up in bed. As she improves from respiratory standpoint we will continue to mobilize her out of bed as much as able. (4) KATHRYN (acute kidney injury): Plan: Creatinine initially 1.7 on admission disease 08/11). Now back to baseline creatinine level of 0.88. (5) Diarrhea: Plan: Appears to be improved, likely secondary to COVID-19 infection as above. Will use antidiarrheals as needed. (6) Rheumatoid arthritis: Plan: She has a history of rheumatoid arthritis. She prior treatment included prednisone, methotrexate, and NSAIDs and leflunomide. She has a history of ulcer/GI bleed Per outpatient documentation: Past treatments: methotrexate (discontinued 10/05/17 due to persistent thrombocytopenia), NSAIDs caused GIB, Arava stopped due to diarrhea; Enbrel was stopped due to anemia and thrombocytopenia Current regimen: prednisone, rituxan. Rituxan on hold and she continues on decadron. (7) Restless leg syndrome: Plan: Continue Mirapex per home regimen. (8) DVT prophylaxis: Plan: Start Lovenox Conditional code-DO NOT INTUBATE, CPR okay Disposition-continue PCU monitoring while on high flow oxygen supplementation DO Dennis ChouFormerly [facility] Admission and Anticipated Discharge Date Admission Date: August 11, 2021 Subjective 71 yo F with acute respiratory failure 2/2 covid pneumonia on hi flow support feels fatigued and generally weak today recently wtih [id number]-5-7 times daily, not sure if any episodes today. Encouraged her to prone. Denies chest pain or other issues. Review of Systems Review of Systems: At least ten systems were reviewed and negative except as indicated in HPI above. Physical Exam Physical Exam: CONSTITUTIONAL: obese, vitals as above, generally ill- appearing, NAD EYES: normal conjunctivae, no scleral icterus ENT: external ear and nose normal, MMM NECK: trachea midline RESPIRATORY: crackles at bases bilaterally, no rales or wheezes, normal respiratory effort on max hi flow settings. CARDIOVASCULAR: regular rate and rhythm, S1 and 2 heard without murmurs, gallops or rubs, no JVD, no peripheral edema GASTROINTESTINAL: soft, nontender, ND, no guarding MUSCULOSKELETAL: generally weak, requires assistance to sit up in bed. Head is normocephalic and atraumatic SKIN: warm and dry NEUROLOGIC: CN 2-12 grossly intact, normal cognition, normal speech, no tremor, no gross focal deficits. PSYCHIATRIC: alert cooperative and oriented to person, place and time. Results & Data Results & Data ([facility]) Vital Signs (Past 12 Hours) Vital Signs Temp Pulse Pulse Resp BP BP Pulse Ox 08/14/21 14:40 91 H 25 H 92 08/14/21 11:20 37.1 C 85 31 H 118/66 90 08/14/21 10:19 89 24 92 08/14/21 08:35 105 H 26 H 91 08/14/21 07:00 36.7 C 97 H 31 H 130/82 89 L 08/14/21 03:05 37.1 C 85 26 H 154/85 H 88 L Laboratory Results [facility] 08/14/21 07:19 Sodium 140 Potassium 3.5 Chloride 109 H Carbon Dioxide 23 BUN 35 H Creatinine 0.88 Glucose 116 H Calcium 8.9 Liver Function 08/14/21 Range/Units 07:19 Total Bilirubin 0.5 (0.2-1) mg/dl AST 30 (15-37) U/L ALT 26 (12-78) U/L Alkaline Phosphatase 64 (45-117) U/L Albumin 2.9 L (3.4-5.0) gm/dl Diagnostic Findings Chest X-Ray 08/14/21 08:42 XR chest 1V portable CLINICAL HISTORY: worsening hypoxia, +covid COMPARISON STUDY: Chest radiograph August 11, 2021. FINDINGS: Lung volumes are diminished. No pneumothorax or pleural effusion. Extensive bilateral airspace opacities have slightly progressed. Cardiomediastinal silhouette is stable. There is a hiatal hernia. IMPRESSION: Progression of extensive bilateral airspace opacities consistent with multifocal pneumonia. ACT 112: Negative or not required by law. Electronically signed by: Andre Coreas M.D. 08/14/2021 9:14 AM Medications Administered Current Inpatient Medications Acetaminophen (Acetaminophen 325 Mg Tab) 650 mg PO Q4H PRN PRN Reason: Pain or Fever Stop: 09/10/21 23:53 Last Admin: 08/13/21 05:21 Dose: 650 mg Documented by: Calcium Carbonate (Calcium Carbonate 500 Mg Chewable Tab) 500 - 1,000 mg PO BID PRN PRN Reason: Indigestion Stop: 09/11/21 23:56 Last Admin: 08/13/21 11:59 Dose: 1,000 mg Documented by: Ferrous Sulfate (Ferrous Sulfate 325 Mg Tab) 325 mg PO DAILY [facility] Stop: 09/11/21 08:59 Last Admin: 08/14/21 11:16 Dose: 325 mg Documented by: Gabapentin (Gabapentin 400 Mg Cap) 400 mg PO QID TAL Stop: 09/11/21 08:59 Last Admin: 08/14/21 13:12 Dose: 400 mg Documented by: Guaifenesin (Guaifenesin 200 Mg Tab) 200 mg PO Q6H TAL Stop: 09/11/21 16:59 Last Admin: 08/14/21 11:16 Dose: 200 mg Documented by: Dexamethasone 6 mg/ Syringe 1.5 mls @ 1 mls/min IV DAILY TAL Stop: 09/11/21 08:59 Last Admin: 08/14/21 08:21 Dose: 1 mls/min Documented by: Remdesivir 100 mg/ Sodium (Chloride) 250 mls @ 250 mls/hr IV Q24H TAL; Protocol Stop: 08/16/21 20:59 Last Infusion: 08/13/21 21:45 Dose: Infused Documented by: Levalbuterol HCl (Levalbuterol Tartrate 15 Gm Hfa.Aer.Ad) 2 puffs INH Q4H PRN PRN Reason: sob/wheeze Stop: 09/10/21 23:53 Last Admin: 08/12/21 23:42 Dose: 2 puffs Documented by: Pramipexole Dihydrochloride (Pramipexole Dihydrochlo 0.5 Mg Tab) 0.5 mg PO TID [facility] Stop: 09/11/21 08:59 Last Admin: 08/14/21 13:12 Dose: 0.5 mg Documented by: Sodium Chloride (Sodium Chloride 0.9% 10ml Flush) 30 ml IV Q24H TAL Stop: 08/16/21 21:01 Last Admin: 08/13/21 20:46 Dose: 30 ml Documented by: Trazodone HCl (Trazodone Hcl 50 Mg Tab) 50 mg PO HS [facility] Stop: 09/11/21 20:59 Last Admin: 08/13/21 20:45 Dose: 50 mg Documented by: (1) Diarrhea Diarrhea type: unspecified type Qualified Code(s): R19.7 - Diarrhea, unspeci fied
[2021-08-14] MEDS: ENOXAPARIN INJ 40 MG/0.4 ML SYR SQ SCH (18:13)
[2021-08-14] MEDS: REMDESIVIR 100 MG in SODIUM CHLORIDE 0.9% 230 ML IV SCH (19:43)
[2021-08-14] MEDS: traZODone HCL 50 MG TAB PO SCH (20:52)
[2021-08-14] MEDS: SODIUM CHLORIDE 0.9% 10ML FLUSH IV SCH (20:53)
[2021-08-15] MEDS: dexAMETHasone 4 MG TAB PO SCH (10:03)
[2021-08-15] MEDS: PRAMIPEXOLE DIHYDROCHLO 0.5 MG TAB PO SCH ×3 (10:04→19:26)
[2021-08-15] MEDS: guaiFENesin 200 MG TAB PO SCH ×3 (10:04→19:55)
[2021-08-15] MEDS: GABAPENTIN 400 MG CAP PO SCH ×4 (10:04→19:26)
[2021-08-15] MEDS: FERROUS SULFATE 325 MG TAB PO SCH (10:04)
[2021-08-15] MEDS: cefTRIAXone SODIUM 2,000 MG in DEXTROSE 5% 50 ML IV SCH (10:55)
[2021-08-15] MEDS ORDERED: guaiFENesin/CODEINE 100MG/10MG 5ML UDC PO STA (16:16)
--- NOTE | 2021-08-15 17:37 | Hospitalist Progress Note ---
Date of Service August 15, 2021 Assessment & Plan (1) Acute respiratory failure due to severe acute respiratory syndrome c oronavirus 2 (SARS-CoV-2) infection: Plan: Unvaccinated patient with progressed need for oxygen supplementation, now on max high flow. She is a DO NOT INTUBATE but is okay with CPR. Compliant with proning overnight. Fatigued today. Cont remdesivir and dexamethasone daily. Stopped scheduled guaifenesin, RObitussin AC PRN. Continue to encourage proning and supportive care. Follow clinically. (2) Pneumonia due to COVID-19 virus: Plan: Plan as above (3) Weakness: Plan: Encourage PT/OT when appropriate. Currently patient is so weak she needs assistance to sit up in bed. As she improves from respiratory standpoint we will continue to mobilize her out of bed as much as able. (4) KATHRYN (acute kidney injury): Plan: Creatinine initially 1.7 on admission disease (08/11). Now back to baseline creatinine level (5) Diarrhea: Plan: Appears to be improved, likely secondary to COVID-19 infection as above. Will use antidiarrheals as needed. (6) Rheumatoid arthritis: Plan: She has a history of rheumatoid arthritis. She prior treatment included prednisone, methotrexate, and NSAIDs and leflunomide. She has a history of ulcer/GI bleed Per outpatient documentation: Past treatments: methotrexate (discontinued 10/05/17 due to persistent thrombocytopenia), NSAIDs caused GIB, Arava stopped due to diarrhea; Enbrel was stopped due to anemia and thrombocytopenia Current regimen: prednisone, rituxan. Rituxan on hold and she continues on decadron. (7) Restless leg syndrome: Plan: Continue Mirapex per home regimen. (8) DVT prophylaxis: Plan: Lovenox Conditional code-DO NOT INTUBATE, CPR okay Disposition-continue PCU monitoring while on high flow oxygen supplementation Shira Gar DO [facility] Hospitalist Admission and Anticipated Discharge Date Admission Date: August 11, 2021 Subjective 71 yo F with acute respiratory failure 2/2 covid pneumonia continues on hi flow support feels fatigued and generally weak today no diarrhea today Encouraged her to prone which she did all night, reports this helps her recover when she gets out of bed. Denies chest pain or other new symptoms today afebrile Review of Systems Review of Systems: At least ten systems were reviewed and negative except as indicated in HPI above. Physical Exam Physical Exam: CONSTITUTIONAL: obese, vitals as above, generally ill- appearing, NAD EYES: normal conjunctivae, no scleral icterus ENT: external ear and nose normal, MMM NECK: trachea midline RESPIRATORY: crackles at bases bilaterally, no rales or wheezes, normal respiratory effort on max hi flow settings. CARDIOVASCULAR: regular rate and rhythm, S1 and 2 heard without murmurs, gallops or rubs, no JVD, no peripheral edema GASTROINTESTINAL: soft, nontender, ND, no guarding MUSCULOSKELETAL: generally weak, requires assistance to sit up in bed. Head is normocephalic and atraumatic SKIN: warm and dry NEUROLOGIC: CN 2-12 grossly intact, normal cognition, normal speech, no tremor, no gross focal deficits. PSYCHIATRIC: alert cooperative and oriented to person, place and time. Results & Data Results & Data ([facility]) Vital Signs (Past 12 Hours) Vital Signs Temp Pulse Pulse Pulse Resp BP Pulse Ox 08/15/21 17:30 74 136/86 89 L 08/15/21 15:12 74 20 98 08/15/21 12:15 36.8 C 73 20 128/78 94 08/15/21 11:51 74 20 93 08/15/21 08:36 80 22 90 08/15/21 08:30 66 08/15/21 07:35 36.9 C 68 18 133/80 83 L Medications Administered Current Inpatient Medications Acetaminophen (Acetaminophen 325 Mg Tab) 650 mg PO Q4H PRN PRN Reason: Pain or Fever Stop: 09/10/21 23:53 Last Admin: 08/13/21 05:21 Dose: 650 mg Documented by: Calcium Carbonate (Calcium Carbonate 500 Mg Chewable Tab) 500 - 1,000 mg PO BID PRN PRN Reason: Indigestion Stop: 09/11/21 23:56 Last Admin: 08/13/21 11:59 Dose: 1,000 mg Documented by: Dexamethasone (Dexamethasone 4 Mg Tab) 6 mg PO DAILY [facility] Stop: 09/14/21 08:59 Last Admin: 08/15/21 10:03 Dose: 6 mg Documented by: Enoxaparin Sodium (Enoxaparin Inj 40 Mg/0.4 Ml Syr) 40 mg SQ Q24H [facility] Stop: 09/13/21 15:59 Last Admin: 08/14/21 18:13 Dose: 40 mg Documented by: Ferrous Sulfate (Ferrous Sulfate 325 Mg Tab) 325 mg PO DAILY TAL Stop: 09/11/21 08:59 Last Admin: 08/15/21 10:04 Dose: 325 mg Documented by: Gabapentin (Gabapentin 400 Mg Cap) 400 mg PO QID TAL Stop: 09/11/21 08:59 Last Admin: 08/15/21 13:11 Dose: 400 mg Documented by: Guaifenesin/Codeine Phosphate (Guaifenesin/Codeine 200mg/20mg 10ml Udc) 10 ml PO Q6H PRN PRN Reason: Cough Stop: 09/14/21 16:15 Remdesivir 100 mg/ Sodium (Chloride) 250 mls @ 250 mls/hr IV Q24H [facility]; Protocol Stop: 08/16/21 20:59 Last Infusion: 08/14/21 20:43 Dose: Infused Documented by: Ceftriaxone Sodium 2,000 mg/ (Dextrose) 70 mls @ 100 mls/hr IV DAILY [facility]; Protocol Stop: 08/20/21 09:59 Last Infusion: 08/15/21 11:54 Dose: Infused Documented by: Levalbuterol HCl (Levalbuterol Tartrate 15 Gm Hfa.Aer.Ad) 2 puffs INH Q4H PRN PRN Reason: sob/wheeze Stop: 09/10/21 23:53 Last Admin: 08/12/21 23:42 Dose: 2 puffs Documented by: Pramipexole Dihydrochloride (Pramipexole Dihydrochlo 0.5 Mg Tab) 0.5 mg PO TID TAL Stop: 09/11/21 08:59 Last Admin: 08/15/21 13:12 Dose: 0.5 mg Documented by: Sodium Chloride (Sodium Chloride 0.9% 10ml Flush) 30 ml IV Q24H TAL Stop: 08/16/21 21:01 Last Admin: 08/14/21 20:53 Dose: 30 ml Documented by: Trazodone HCl (Trazodone Hcl 50 Mg Tab) 50 mg PO HS [facility] Stop: 09/11/21 20:59 Last Admin: 08/14/21 20:52 Dose: 50 mg Documented by: (1) Diarrhea Diarrhea type: unspecified type Qualified Code(s): R19.7 - Diarrhea, unspecified
[2021-08-15] MEDS: ENOXAPARIN INJ 40 MG/0.4 ML SYR SQ SCH (17:40)
[2021-08-15] MEDS: REMDESIVIR 100 MG in SODIUM CHLORIDE 0.9% 230 ML IV SCH (19:24)
[2021-08-15] MEDS: traZODone HCL 50 MG TAB PO SCH (19:26)
[2021-08-15] MEDS: SODIUM CHLORIDE 0.9% 10ML FLUSH IV SCH (20:36)
[2021-08-16] MEDS: PRAMIPEXOLE DIHYDROCHLO 0.5 MG TAB PO SCH ×3 (08:03→20:51)
[2021-08-16] MEDS: FERROUS SULFATE 325 MG TAB PO SCH (08:03)
[2021-08-16] MEDS: dexAMETHasone 4 MG TAB PO SCH (08:03)
[2021-08-16] MEDS: GABAPENTIN 400 MG CAP PO SCH ×4 (08:04→20:52)
[2021-08-16] MEDS: cefTRIAXone SODIUM 2,000 MG in DEXTROSE 5% 50 ML IV SCH (08:25)
[2021-08-16 10:55] LABS: Hematocrit (blood only) 42.2 % (37-47); Hemoglobin 13.4 g/dL (12.0-16.0); Mean Corpuscular Hemoglobin 27.7 pg (25-34); Mean Corpuscular Hgb Conc 31.8 g/dL (32-36); Mean Corpuscular Volume 87.2 fL (80-100); Mean Platelet Volume 10.7 fL (7.4-10.4); Platelet Count 229 K/uL (130-400); RDW Coefficient of Variation 22.7 % (11.5-14.5); RDW Standard Deviation 72.7 fL (36.4-46.3); Red Blood Count 4.84 M/uL (4.2-5.4); White Blood Count 12.82 K/uL (4.8-10.8)
[2021-08-16 11:22] LABS: Albumin Globulin Ratio 0.7 (0.9-2); Albumin Level 2.3 gm/dl (3.4-5.0); BUN Creatinine Ratio 47.5 (10-20); Bilirubin,Total 0.3 mg/dl (0.2-1); C Reactive Protein 1.65 mg/dl (0-0.29); Calcium 8.5 mg/dl (8.5-10.1); Creatinine Clr Calc Pharmacy 64.2 ml/min; Est GFR (African American) 92.3 ml/min; Est GFR (Non-African American) 79.6 ml/min; Globulin 3.2 gm/dl (2.5-4.0); Magnesium 2.4 mg/dl (1.8-2.4); Potassium 4.5 mmol/L (3.5-5.1); Total Protein 5.5 gm/dl (6.4-8.2)
[2021-08-16] MEDS: CALCIUM CARBONATE 500 MG CHEWABLE TAB PO PRN (15:48)
[2021-08-16] MEDS: ENOXAPARIN INJ 40 MG/0.4 ML SYR SQ SCH (15:49)
--- NOTE | 2021-08-16 16:25 | Hospitalist Progress Note ---
Date of Service August 16, 2021 Assessment & Plan (1) Acute respiratory failure due to severe acute respiratory syndrome c oronavirus 2 (SARS-CoV-2) infection: Plan: Unvaccinated patient with progressed need for oxygen supplementation, now on max high flow. She is a DO NOT INTUBATE but is okay with CPR. Compliant with proning overnight. Fatigued today. Cont remdesivir and dexamethasone daily. Robitussin AC PRN. Continue to encourage proning and supportive care. Follow clinically. (2) Pneumonia due to COVID-19 virus: Plan: Plan as above (3) Weakness: Plan: Encourage PT/OT when appropriate. Currently patient is so weak she needs assistance to sit up in bed. As she improves from respiratory standpoint we will continue to mobilize her out of bed as much as able. (4) KATHRYN (acute kidney injury): Plan: Creatinine initially 1.7 on admission disease (08/11). Now back to baseline creatinine level (5) Diarrhea: Plan: Appears to be improved, likely secondary to COVID-19 infection as above. Will use antidiarrheals as needed. (6) Rheumatoid arthritis: Plan: She has a history of rheumatoid arthritis. She prior treatment included prednisone, methotrexate, and NSAIDs and leflunomide. She has a history of ulcer/GI bleed Per outpatient documentation: Past treatments: methotrexate (discontinued 10/05/17 due to persistent thrombocytopenia), NSAIDs caused GIB, Arava stopped due to diarrhea; Enbrel was stopped due to anemia and thrombocytopenia Current regimen: prednisone, rituxan. Rituxan on hold and she continues on decadron. (7) Restless leg syndrome: Plan: Continue Mirapex per home regimen. (8) DVT prophylaxis: Plan: Lovenox Conditional code-DO NOT INTUBATE, CPR okay Disposition-continue PCU monitoring while on high flow oxygen supplementation [facility]ated Discharge Date Admission Date: August 11, 2021 Subjective 71 yo F with acute respiratory failure 2/2 covid pneumonia continues on hi flow support feels fatigued and generally weak today-agitated about her phone and wants to wa lk around the room suspect steroid psychosis. Discussed this with her by phone and with nurse. BM today tolerating PO Review of Systems Review of Systems: At least ten systems were reviewed and negative except as indicated in HPI above. Physical Exam Physical Exam: CONSTITUTIONAL: obese, vitals as above, generally ill- appearing, NAD EYES: normal conjunctivae, no scleral icterus ENT: external ear and nose normal, MMM NECK: trachea midline RESPIRATORY: crackles at bases bilaterally, no rales or wheezes, normal respiratory effort on max hi flow settings. CARDIOVASCULAR: regular rate and rhythm, S1 and 2 heard without murmurs, gallops or rubs, no JVD, no peripheral edema GASTROINTESTINAL: soft, nontender, ND, no guarding MUSCULOSKELETAL: generally weak, requires assistance to sit up in bed. Head is normocephalic and atraumatic SKIN: warm and dry NEUROLOGIC: CN 2-12 grossly intact, normal cognition, normal speech, no tremor, no gross focal deficits. PSYCHIATRIC: alert cooperative and oriented to person, place and time. Results & Data Results & Data ([facility]) Vital Signs (Past 12 Hours) Vital Signs Temp Pulse Pulse Pulse Resp BP BP 08/16/21 15:36 36.7 C 70 24 134/86 08/16/21 14:16 85 26 H 08/16/21 11:52 36.4 C L 61 22 141/85 H 08/16/21 11:42 62 20 08/16/21 07:33 36.4 C L 58 L 23 140/78 08/16/21 05:55 54 L 20 08/16/21 04:48 55 L 08/16/21 04:47 36.4 C L 58 L 16 138/80 Pulse Ox 08/16/21 15:36 94 08/16/21 14:16 91 08/16/21 11:52 91 08/16/21 11:42 94 08/16/21 07:33 90 08/16/21 05:55 94 08/16/21 04:48 08/16/21 04:47 93 Laboratory Results Short CBC 08/16/21 Range/Units 10: WBC 12.82 H (4.8-10.8) K/uL Hgb 13.4 (12.0-16.0) g/dL Hct 42.2 (37-47) % Plt Count 229 (130-400) K/uL BMP 08/16/21 10:23 Sodium 140 Potassium 4.5 Chloride 110 H Carbon Dioxide 26 BUN 36 H Creatinine 0.75 Glucose 218 H Calcium 8.5 Liver Function 08/16/21 Range/Units 10:23 Total Bilirubin 0.3 (0.2-1) mg/dl AST 31 (15-37) U/L ALT 34 (12-78) U/L Alkaline Phosphatase 67 (45-117) U/L Albumin 2.3 L (3.4-5.0) gm/dl Medications Administered Current Inpatient Medications Acetaminophen (Acetaminophen 325 Mg Tab) 650 mg PO Q4H PRN PRN Reason: Pain or Fever Stop: 09/10/21 23:53 Last Admin: 08/13/21 05:21 Dose: 650 mg Documented by: Calcium Carbonate (Calcium Carbonate 500 Mg Chewable Tab) 500 - 1,000 mg PO BID PRN PRN Reason: Indigestion Stop: 09/11/21 23:56 Last Admin: 08/16/21 15:48 Dose: 1,000 mg Documented by: Dexamethasone (Dexamethasone 4 Mg Tab) 6 mg PO DAILY TAL Stop: 09/14/21 08:59 Last Admin: 08/16/21 08:03 Dose: 6 mg Documented by: Enoxaparin Sodium (Enoxaparin Inj 40 Mg/0.4 Ml Syr) 40 mg SQ Q24H TAL Stop: 09/13/21 15:59 Last Admin: 08/16/21 15:49 Dose: 40 mg Documented by: Ferrous Sulfate (Ferrous Sulfate 325 Mg Tab) 325 mg PO DAILY TAL Stop: 09/11/21 08:59 Last Admin: 08/16/21 08:03 Dose: 325 mg Documented by: Gabapentin (Gabapentin 400 Mg Cap) 400 mg PO QID TAL Stop: 09/11/21 08:59 Last Admin: 08/16/21 14:00 Dose: 400 mg Documented by: Guaifenesin/Codeine Phosphate (Guaifenesin/Codeine 200mg/20mg 10ml Udc) 10 ml PO Q6H PRN PRN Reason: Cough Stop: 09/14/21 16:15 Remdesivir 100 mg/ Sodium (Chloride) 250 mls @ 250 mls/hr IV Q24H TAL; Protocol Stop: 08/16/21 20:59 Last Infusion: 08/15/21 20:24 Dose: Infused Documented by: Ceftriaxone Sodium 2,000 mg/ (Dextrose) 70 mls @ 100 mls/hr IV DAILY TAL; Protocol Stop: 08/20/21 09:59 Last Infusion: 08/16/21 11:28 Dose: Infused Documented by: Levalbuterol HCl (Levalbuterol Tartrate 15 Gm Hfa.Aer.Ad) 2 puffs INH Q4H PRN PRN Reason: sob/wheeze Stop: 09/10/21 23:53 Last Admin: 08/12/21 23:42 Dose: 2 puffs Documented by: Nystatin (Nystatin Susp 500,000 U/5 Ml Udc) 10 ml PO QID TAL Stop: 08/26/21 16:59 Pramipexole Dihydrochloride (Pramipexole Dihydrochlo 0.5 Mg Tab) 0.5 mg PO TID TAL Stop: 09/11/21 08:59 Last Admin: 08/16/21 14:00 Dose: 0.5 mg Documented by: Sodium Chloride (Sodium Chloride 0.9% 10ml Flush) 30 ml IV Q24H TAL Stop: 08/16/21 21:01 Last Admin: 08/15/21 20:36 Dose: 30 ml Documented by: Trazodone HCl (Trazodone Hcl 50 Mg Tab) 50 mg PO HS [facility] Stop: 09/11/21 20:59 Last Admin: 08/15/21 19:26 Dose: 50 mg Documented by: (1) Diarrhea Diarrhea type: unspecified type Qualified Code(s): R19.7 - Diarrhea, unspecified
[2021-08-16] MEDS: NYSTATIN SUSP 500,000 U/5 ML UDC PO SCH ×2 (17:40→20:52)
[2021-08-16] MEDS: REMDESIVIR 100 MG in SODIUM CHLORIDE 0.9% 230 ML IV SCH (20:46)
[2021-08-16] MEDS: traZODone HCL 50 MG TAB PO SCH (20:50)
[2021-08-16] MEDS: NITROFURANTOIN MONOHYDRATE 100 MG CAP PO SCH (20:53)
[2021-08-16] MEDS: SODIUM CHLORIDE 0.9% 10ML FLUSH IV SCH (21:53)
[2021-08-17 06:09] LABS: Hematocrit (blood only) 41.5 % (37-47); Mean Corpuscular Hemoglobin 27.4 pg (25-34); Mean Corpuscular Hgb Conc 31.3 g/dL (32-36); Mean Corpuscular Volume 87.4 fL (80-100); Mean Platelet Volume 10.4 fL (7.4-10.4); Platelet Count 247 K/uL (130-400); RDW Coefficient of Variation 22.8 % (11.5-14.5); RDW Standard Deviation 73.3 fL (36.4-46.3); Red Blood Count 4.75 M/uL (4.2-5.4)
[2021-08-17 06:54] LABS: BUN Creatinine Ratio 38.9 (10-20); Calcium 8.8 mg/dl (8.5-10.1); Creatinine Clr Calc Pharmacy 58.8 ml/min; Est GFR (African American) 82.9 ml/min; Est GFR (Non-African American) 71.5 ml/min; Potassium 4.3 mmol/L (3.5-5.1)
[2021-08-17] MEDS: GABAPENTIN 400 MG CAP PO SCH ×4 (08:34→21:55)
[2021-08-17] MEDS: NYSTATIN SUSP 500,000 U/5 ML UDC PO SCH ×4 (08:34→21:54)
[2021-08-17] MEDS: NITROFURANTOIN MONOHYDRATE 100 MG CAP PO SCH ×2 (08:34→21:54)
[2021-08-17] MEDS: FERROUS SULFATE 325 MG TAB PO SCH (08:35)
[2021-08-17] MEDS: PRAMIPEXOLE DIHYDROCHLO 0.5 MG TAB PO SCH ×3 (08:35→21:54)
--- NOTE | 2021-08-17 09:52 | Hospitalist Progress Note ---
Date of Service August 17, 2021 Assessment & Plan (1) Acute respiratory failure due to severe acute respiratory syndrome c oronavirus 2 (SARS-CoV-2) infection: Plan: Unvaccinated patient with progressed need for oxygen supplementation, now on max high flow for several days. She is a DO NOT INTUBATE but is okay with CPR. Cont to prone as often as able. Completed remdesivir on 08/16. Decadron on hold since yesterday. Will hold another day and try to restart at a lower dose in am. Robitussin AC PRN. Continue to encourage proning and supportive care. (2) Pneumonia due to COVID-19 virus: Plan: Plan as above (3) Weakness: Plan: Encourage PT/OT when appropriate. Currently patient is so weak she needs assistance to sit up in bed. As she improves from respiratory standpoint we will continue to mobilize her out of bed as much as able. (4) KATHRYN (acute kidney injury): Plan: Creatinine initially 1.7 on admission disease (08/11). Now back to baseline creatinine level (5) Diarrhea: Plan: 2/2 covid-resolved. (6) Rheumatoid arthritis: Plan: She has a history of rheumatoid arthritis. She prior treatment included pr ednisone, methotrexate, and NSAIDs and leflunomide. She has a history of ulcer/GI bleed Per outpatient documentation: Past treatments: methotrexate (discontinued 10/05/17 due to persistent thrombocytopenia), NSAIDs caused GIB, Arava stopped due to diarrhea; Enbrel was stopped due to anemia and thrombocytopenia Current regimen: prednisone, rituxan. Rituxan on hold and she continues on decadron. (7) Restless leg syndrome: Plan: Continue Mirapex per home regimen. (8) DVT prophylaxis: Plan: Lovenox Conditional code-DO NOT INTUBATE, CPR okay Disposition-continue PCU monitoring while on high flow oxygen supplementation Shira Gar DO [facility] Admission and Anticipated Discharge Date Admission Date: August 11, 2021 Subjective 71 yo F with acute respiratory failure 2/2 covid pneumonia continues on vapotherm feels fatigued and generally weak again today but reports "50% better" appears less agitated off the steroids. tolerating PO placed mancuso and proned her while in the room Review of Systems Review of Systems: At least ten systems were reviewed and negative except as indicated in HPI above. Physical Exam Physical Exam: CONSTITUTIONAL: obese, vitals as above, generally ill- appearing, NAD EYES: normal conjunctivae, no scleral icterus ENT: external ear and nose normal, MMM NECK: trachea midline RESPIRATORY: crackles at bases bilaterally, no rales or wheezes, normal respiratory effort on max hi flow settings. CARDIOVASCULAR: regular rate and rhythm, S1 and 2 heard without murmurs, gallops or rubs, no JVD, no peripheral edema GASTROINTESTINAL: soft, nontender, ND, no guarding MUSCULOSKELETAL: generally weak, requires assistance to sit up in bed. Head is normocephalic and atraumatic SKIN: warm and dry NEUROLOGIC: CN 2-12 grossly intact, normal cognition, normal speech, no tremor, no gross focal deficits. PSYCHIATRIC: alert cooperative and oriented to person, place and time. Results & Data Results & Data ([facility]) Vital Signs (Past 12 Hours) Vital Signs Temp Pulse Pulse Pulse Resp BP BP 08/17/21 08:11 36.4 C L 57 L 16 134/79 08/17/21 05:37 68 24 08/17/21 04:50 36.6 C 69 18 133/86 08/17/21 03:12 57 L 26 H 08/16/21 22:49 68 20 157/84 H 08/16/21 22:45 67 26 H 08/16/21 22:19 70 Pulse Ox 08/17/21 08:11 92 08/17/21 05:37 90 08/17/21 04:50 92 08/17/21 03:12 91 08/16/21 22:49 91 08/16/21 22:45 90 08/16/21 22:19 Laboratory Results Short CBC 08/16/21 08/17/21 Range/Units 10:23 05:44 WBC 12.82 H 11.40 H (4.8-10.8) K/uL Hgb 13.4 13.0 (12.0-16.0) g/dL Hct 42.2 41.5 (37-47) % Plt Count 229 247 (130-400) K/uL BMP 08/16/21 08/17/21 10:23 05:44 Sodium 140 140 Potassium 4.5 4.3 Chloride 110 H 112 H Carbon Dioxide 26 24 BUN 36 H 32 H Creatinine 0.75 0.82 Glucose 218 H 227 H Calcium 8.5 8.8 Liver Function 08/16/21 Range/Units 10:23 Total Bilirubin 0.3 (0.2-1) mg/dl AST 31 (15-37) U/L ALT 34 (12-78) U/L Alkaline Phosphatase 67 (45-117) U/L Albumin 2.3 L (3.4-5.0) gm/dl Medications Administered Current Inpatient Medications Acetaminophen (Acetaminophen 325 Mg Tab) 650 mg PO Q4H PRN PRN Reason: Pain or Fever Stop: 09/10/21 23:53 Last Admin: 08/13/21 05:21 Dose: 650 mg Documented by: Calcium Carbonate (Calcium Carbonate 500 Mg Chewable Tab) 500 - 1,000 mg PO BID PRN PRN Reason: Indigestion Stop: 09/11/21 23:56 Last Admin: 08/16/21 15:48 Dose: 1,000 mg Documented by: Dexamethasone (Dexamethasone 4 Mg Tab) 6 mg PO DAILY [facility] Stop: 09/14/21 08:59 Last Admin: 08/16/21 08:03 Dose: 6 mg Documented by: Enoxaparin Sodium (Enoxaparin Inj 40 Mg/0.4 Ml Syr) 40 mg SQ Q24H [facility] Stop: 09/13/21 15:59 Last Admin: 08/16/21 15:49 Dose: 40 mg Documented by: Ferrous Sulfate (Ferrous Sulfate 325 Mg Tab) 325 mg PO DAILY [facility] Stop: 09/11/21 08:59 Last Admin: 08/17/21 08:35 Dose: 325 mg Documented by: Gabapentin (Gabapentin 400 Mg Cap) 400 mg PO QID [facility] Stop: 09/11/21 08:59 Last Admin: 08/17/21 08:34 Dose: 400 mg Documented by: Guaifenesin/Codeine Phosphate (Guaifenesin/Codeine 200mg/20mg 10ml Udc) 10 ml PO Q6H PRN PRN Reason: Cough Stop: 09/14/21 16:15 Last Admin: 08/17/21 04:53 Dose: 10 ml Documented by: Levalbuterol HCl (Levalbuterol Tartrate 15 Gm Hfa.Aer.Ad) 2 puffs INH Q4H PRN PRN Reason: sob/wheeze Stop: 09/10/21 23:53 Last Admin: 08/12/21 23:42 Dose: 2 puffs Documented by: Nitrofurantoin Macrocrystals (Nitrofurantoin Monohydrate 100 Mg Cap) 100 mg PO BID [facility]; Protocol Stop: 08/21/21 20:59 Last Admin: 08/17/21 08:34 Dose: 100 mg Documented by: Nystatin (Nystatin Susp 500,000 U/5 Ml Udc) 10 ml PO QID [facility] Stop: 08/26/21 16:59 Last Admin: 08/17/21 08:34 Dose: 10 ml Documented by: Pramipexole Dihydrochloride (Pramipexole Dihydrochlo 0.5 Mg Tab) 0.5 mg PO TID [facility] Stop: 09/11/21 08:59 Last Admin: 08/17/21 08:35 Dose: 0.5 mg Documented by: Trazodone HCl (Trazodone Hcl 50 Mg Tab) 50 mg PO HS [facility] Stop: 09/11/21 20:59 Last Admin: 08/16/21 20:50 Dose: 50 mg Documented by: (1) Diarrhea Diarrhea type: unspecified type Qualified Code(s): R19.7 - Diarrhea, unspecified
[2021-08-17] MEDS: CALCIUM CARBONATE 500 MG CHEWABLE TAB PO PRN (14:18)
[2021-08-17] MEDS: ENOXAPARIN INJ 40 MG/0.4 ML SYR SQ SCH (16:51)
[2021-08-17] MEDS: traZODone HCL 50 MG TAB PO SCH (21:54)
[2021-08-18] MEDS: GABAPENTIN 400 MG CAP PO SCH ×4 (08:23→22:04)
[2021-08-18] MEDS: FERROUS SULFATE 325 MG TAB PO SCH (08:23)
[2021-08-18] MEDS: NITROFURANTOIN MONOHYDRATE 100 MG CAP PO SCH ×2 (08:24→22:03)
[2021-08-18] MEDS: PRAMIPEXOLE DIHYDROCHLO 0.5 MG TAB PO SCH ×3 (08:24→22:03)
[2021-08-18] MEDS: NYSTATIN SUSP 500,000 U/5 ML UDC PO SCH ×4 (08:25→22:03)
[2021-08-18] MEDS ORDERED: GLUCOSE 40% GEL 15 GM TUBE PO PRN (09:56)
[2021-08-18] MEDS ORDERED: GLUCAGON FOR INJ 1 MG VIAL SQ PRN (09:56)
[2021-08-18] MEDS ORDERED: GLUCOSE 10 TABS/TUBE PO PRN (09:56)
[2021-08-18] MEDS ORDERED: CARBOHYDRATES FOR HYPOGLYCEMIA PO PRN (09:56)
[2021-08-18] MEDS ORDERED: DEXTROSE 50% 50 ML SYRINGE IV PRN (09:56)
--- NOTE | 2021-08-18 09:56 | Hospitalist Progress Note ---
Date of Service August 18, 2021 Assessment & Plan (1) Acute respiratory failure due to severe acute respiratory syndrome c oronavirus 2 (SARS-CoV-2) infection: Plan: Unvaccinated patient with progressed need for oxygen supplementation, now on max high flow for several days. She is a DO NOT INTUBATE but is okay with CPR. Cont to prone as often as able. Completed remdesivir on 08/16. Decadron on hold with ?steroid psychosis but has now been restarted at smaller dose. Robitussin AC PRN. Continue to encourage proning and supportive care. 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 BSG qACHS (4) Weakness: Plan: 2/2 covid. Encourage PT/OT when appropriate. As she improves from respiratory standpoint we will continue to mobilize her out of bed as much as able. (5) KATHRYN (acute kidney injury): Plan: Creatinine initially 1.7 on admission disease (08/11). Now back to baseline creatinine level (6) Diarrhea: Plan: 2/2 covid-resolved. (7) Rheumatoid arthritis: Plan: She has a history of rheumatoid arthritis. She prior treatment included prednisone, methotrexate, and NSAIDs and leflunomide. She has a history of ulcer/GI bleed Per outpatient documentation: Past treatments: methotrexate (discontinued 10/05/17 due to persistent thrombocytopenia), NSAIDs caused GIB, Arava stopped due to diarrhea; Enbrel was stopped due to anemia and thrombocytopenia Current regimen: prednisone, rituxan. Rituxan on hold and she continues on decadron. (8) Restless leg syndrome: Plan: Continue Mirapex per home regimen. (9) DVT prophylaxis: Plan: Lovenox Conditional code-DO NOT INTUBATE, CPR okay Disposition-continue PCU monitoring while on high flow oxygen supplementation Shira Gar DO [facility] Admission and Anticipated Discharge Date Admission Date: August 11, 2021 Subjective 71 yo F with acute respiratory failure 2/2 covid pneumonia continues on vapotherm feels fatigued and generally weak again today but reports "50% better" appears less agitated off the steroids. Restarting at 4mg daily today tolerating PO proned her while in the room-she was compliant with this Review of Systems Review of Systems: At least ten systems were reviewed and negative except as indicated in HPI above. Physical Exam Physical Exam: CONSTITUTIONAL: obese, vitals as above, generally ill-appearing, NAD EYES: normal conjunctivae, no scleral icterus ENT: external ear and nose normal, MMM NECK: trachea midline RESPIRATORY: crackles at bases bilaterally, no rales or wheezes, normal respiratory effort on max hi flow settings. CARDIOVASCULAR: regular rate and rhythm, S1 and 2 heard without murmurs, gallops or rubs, no JVD, no peripheral edema GASTROINTESTINAL: soft, nontender, ND, no guarding MUSCULOSKELETAL: generally weak, requires assistance to sit up in bed. Head is normocephalic and atraumatic SKIN: warm and dry NEUROLOGIC: CN 2-12 grossly intact, normal cognition, normal speech, no tremor, no gross focal deficits. PSYCHIATRIC: alert cooperative and oriented to person, place and time. Results & Data Results & Data ([facility]) Vital Signs (Past 12 Hours) Vital Signs Temp Pulse Pulse Pulse Resp BP Pulse Ox 08/18/21 05:51 80 24 94 08/18/21 04:37 37.4 C 73 20 153/89 H 93 08/18/21 02:08 79 28 H 91 08/17/21 23:24 36.8 C 83 20 158/87 H 91 08/17/21 23:02 77 20 86 L Laboratory Results [facility] 08/18/21 08/18/21 08/18/21 10:25 12:11 13:20 Sodium 139 Potassium Cancelled 4.3 Chloride 107 Carbon Dioxide 30 BUN 26 H Creatinine 0.73 Glucose 99 Calcium 8.5 Medications Administered Current Inpatient Medications Acetaminophen (Acetaminophen 325 Mg Tab) 650 mg PO Q4H PRN PRN Reason: Pain or Fever Stop: 09/10/21 23:53 Last Admin: 08/13/21 05:21 Dose: 650 mg Documented by: Calcium Carbonate (Calcium Carbonate 500 Mg Chewable Tab) 500 - 1,000 mg PO BID PRN PRN Reason: Indigestion Stop: 09/11/21 23:56 Last Admin: 08/17/21 14:18 Dose: 500 mg Documented by: Dexamethasone (Dexamethasone 4 Mg Tab) 4 mg PO DAILY TAL Stop: 09/17/21 09:59 Last Admin: 08/18/21 11:05 Dose: 4 mg Documented by: Dextrose (Dextrose 50% 50 Ml Syringe) 25 - 50 ml IV UD PRN; Protocol PRN Reason: Hypoglycemia Protocol Stop: 09/17/21 09:55 Enoxaparin Sodium (Enoxaparin Inj 40 Mg/0.4 Ml Syr) 40 mg SQ Q24H TAL Stop: 09/13/21 15:59 Last Admin: 08/18/21 17:57 Dose: 40 mg Documented by: Ferrous Sulfate (Ferrous Sulfate 325 Mg Tab) 325 mg PO DAILY TAL Stop: 09/11/21 08:59 Last Admin: 08/18/21 08:23 Dose: 325 mg Documented by: Gabapentin (Gabapentin 400 Mg Cap) 400 mg PO QID TAL Stop: 09/11/21 08:59 Last Admin: 08/18/21 17:58 Dose: 400 mg Documented by: Glucagon (Glucagon For Inj 1 Mg Vial) 1 mg SQ UD PRN; Protocol PRN Reason: Hypoglycemia Protocol Stop: 09/17/21 09:55 Glucose (Glucose 10 Tabs/Tube) 4 - 8 tabs PO UD PRN; Protocol PRN Reason: Hypoglycemia Protocol Stop: 09/17/21 09:55 Glucose (Glucose 40% Gel 15 Gm Tube) 15 - 30 gm PO UD PRN; Protocol PRN Reason: Hypoglycemia Protocol Stop: 09/17/21 09:55 Guaifenesin/Codeine Phosphate (Guaifenesin/Codeine 200mg/20mg 10ml Udc) 10 ml PO Q6H PRN PRN Reason: Cough Stop: 09/14/21 16:15 Last Admin: 08/17/21 21:53 Dose: 10 ml Documented by: Furosemide 40 mg/ Syringe 4 mls @ 4 mls/min IV DAILY TAL Stop: 09/17/21 09:59 Last Admin: 08/18/21 11:05 Dose: 4 mls/min Documented by: Insulin Aspart (Insulin Aspart 100 Units/Ml 3 Ml Pen) 0 units SC ACHS TAL Stop: 09/17/21 11:29 Last Admin: 08/18/21 18:00 Dose: 2 units Documented by: Levalbuterol HCl (Levalbuterol Tartrate 15 Gm Hfa.Aer.Ad) 2 puffs INH Q4H PRN PRN Reason: sob/wheeze Stop: 09/10/21 23:53 Last Admin: 08/12/21 23:42 Dose: 2 puffs Documented by: Miscellaneous (Carbohydrates For Hypoglycemia ) 15 - 30 gm PO UD PRN PRN Reason: Hypoglycemia Protocol Stop: 09/17/21 09:55 Nitrofurantoin Macrocrystals (Nitrofurantoin Monohydrate 100 Mg Cap) 100 mg PO BID [facility]; Protocol Stop: 08/21/21 20:59 Last Admin: 08/18/21 08:24 Dose: 100 mg Documented by: Nystatin (Nystatin Susp 500,000 U/5 Ml [facility]) 10 ml PO QID [facility] Stop: 08/26/21 16:59 Last Admin: 08/18/21 17:58 Dose: 10 ml Documented by: Pramipexole Dihydrochloride (Pramipexole Dihydrochlo 0.5 Mg Tab) 0.5 mg PO TID [facility] Stop: 09/11/21 08:59 Last Admin: 08/18/21 13:39 Dose: 0.5 mg Documented by: Trazodone HCl (Trazodone Hcl 50 Mg Tab) 50 mg PO HS [facility] Stop: 09/11/21 20:59 Last Admin: 08/17/21 21:54 Dose: 50 mg Documented by: (1) Diarrhea Diarrhea type: unspecified type Qualified Code(s): R19.7 - Diarrhea, unspecified
[2021-08-18] MEDS: dexAMETHasone 4 MG TAB PO SCH (11:05)
[2021-08-18] MEDS: FUROSEMIDE 40 MG in SYRINGE 0 ML IV SCH (11:05)
[2021-08-18 11:57] LABS: Calcium 8.5 mg/dl (8.5-10.1); Est GFR (African American) 95.4 ml/min; Est GFR (Non-African American) 82.3 ml/min
[2021-08-18 13:52] LABS: Potassium 4.3 mmol/L (3.5-5.1)
[2021-08-18 13:53] LABS: Magnesium 2.2 mg/dl (1.8-2.4)
[2021-08-18] MEDS: INSULIN ASPART 100 UNITS/ML 3 ML PEN SC SCH ×3 (14:03→22:00)
[2021-08-18] MEDS: ENOXAPARIN INJ 40 MG/0.4 ML SYR SQ SCH (17:57)
[2021-08-18] MEDS: INSULIN GLARGINE SOLOSTAR 100 UNITS/ML 3 ML PEN SC SCH (22:00)
[2021-08-18] MEDS: traZODone HCL 50 MG TAB PO SCH (22:03)
[2021-08-19] MEDS ORDERED: INSULIN ASPART 100 UNITS/ML 3 ML PEN SC ONE (01:00)
[2021-08-19 07:23] LABS: Hematocrit (blood only) 45.4 % (37-47); Hemoglobin 14.6 g/dL (12.0-16.0); Mean Corpuscular Hemoglobin 28.3 pg (25-34); Mean Corpuscular Hgb Conc 32.2 g/dL (32-36); Mean Corpuscular Volume 88.2 fL (80-100); Mean Platelet Volume 10.5 fL (7.4-10.4); Platelet Count 236 K/uL (130-400); RDW Standard Deviation 71.8 fL (36.4-46.3); Red Blood Count 5.15 M/uL (4.2-5.4)
[2021-08-19 07:49] LABS: BUN Creatinine Ratio 38.7 (10-20); Calcium 9.3 mg/dl (8.5-10.1); Creatinine Clr Calc Pharmacy 57.4 ml/min; Est GFR (African American) 80.5 ml/min; Est GFR (Non-African American) 69.4 ml/min; Potassium 4.4 mmol/L (3.5-5.1)
[2021-08-19] MEDS: INSULIN ASPART 100 UNITS/ML 3 ML PEN SC SCH ×4 (09:30→20:43)
[2021-08-19] MEDS: INSULIN GLARGINE SOLOSTAR 100 UNITS/ML 3 ML PEN SC SCH ×2 (09:30→20:50)
[2021-08-19] MEDS: FUROSEMIDE 40 MG in SYRINGE 0 ML IV SCH (09:40)
[2021-08-19] MEDS: FERROUS SULFATE 325 MG TAB PO SCH (09:40)
[2021-08-19] MEDS: GABAPENTIN 400 MG CAP PO SCH ×4 (09:41→20:47)
[2021-08-19] MEDS: dexAMETHasone 4 MG TAB PO SCH (09:41)
[2021-08-19] MEDS: PRAMIPEXOLE DIHYDROCHLO 0.5 MG TAB PO SCH ×3 (09:42→20:49)
[2021-08-19] MEDS: NYSTATIN SUSP 500,000 U/5 ML UDC PO SCH ×5 (09:43→21:07)
[2021-08-19] MEDS: NITROFURANTOIN MONOHYDRATE 100 MG CAP PO SCH ×2 (09:43→20:49)
[2021-08-19] MEDS: ENOXAPARIN INJ 40 MG/0.4 ML SYR SQ SCH (18:05)
[2021-08-19] MEDS: traZODone HCL 50 MG TAB PO SCH (20:49)
[2021-08-19] MEDS: CALCIUM CARBONATE 500 MG CHEWABLE TAB PO PRN ×2 (20:59→21:10)
[2021-08-20 06:29] LABS: Hematocrit (blood only) 47.1 % (37-47); Mean Corpuscular Hemoglobin 28.1 pg (25-34); Mean Corpuscular Hgb Conc 31.8 g/dL (32-36); Mean Corpuscular Volume 88.2 fL (80-100); Mean Platelet Volume 10.1 fL (7.4-10.4); Platelet Count 225 K/uL (130-400); RDW Coefficient of Variation 21.6 % (11.5-14.5); Red Blood Count 5.34 M/uL (4.2-5.4); White Blood Count 18.44 K/uL (4.8-10.8)
[2021-08-20 07:00] LABS: BUN Creatinine Ratio 40.4 (10-20); Calcium 9.5 mg/dl (8.5-10.1); Creatinine Clr Calc Pharmacy 60.4 ml/min; Est GFR (African American) 82.9 ml/min; Est GFR (Non-African American) 71.5 ml/min; Potassium 4.3 mmol/L (3.5-5.1)
[2021-08-20] MEDS: INSULIN ASPART 100 UNITS/ML 3 ML PEN SC SCH ×4 (08:53→20:50)
[2021-08-20] MEDS: INSULIN GLARGINE SOLOSTAR 100 UNITS/ML 3 ML PEN SC SCH ×2 (08:54→20:50)
[2021-08-20] MEDS: NYSTATIN SUSP 500,000 U/5 ML UDC PO SCH ×4 (08:55→23:01)
[2021-08-20] MEDS: FERROUS SULFATE 325 MG TAB PO SCH (08:55)
[2021-08-20] MEDS: NITROFURANTOIN MONOHYDRATE 100 MG CAP PO SCH ×2 (08:55→23:01)
[2021-08-20] MEDS: PRAMIPEXOLE DIHYDROCHLO 0.5 MG TAB PO SCH ×3 (08:55→23:02)
[2021-08-20] MEDS: FUROSEMIDE 40 MG in SYRINGE 0 ML IV SCH (08:55)
[2021-08-20] MEDS: dexAMETHasone 4 MG TAB PO SCH (08:55)
[2021-08-20] MEDS: GABAPENTIN 400 MG CAP PO SCH ×4 (08:56→23:00)
--- NOTE | 2021-08-20 09:27 | Hospitalist Progress Note ---
Date of Service August 19, 2021 Assessment & Plan (1) Acute respiratory failure due to severe acute respiratory syndrome c oronavirus 2 (SARS-CoV-2) infection: Plan: Unvaccinated patient with progressed need for oxygen supplementation, now on max high flow for several days. She is a DO NOT INTUBATE but is okay with CPR. Cont to prone as often as able. Completed remdesivir on 08/16. Decadron on hold with ?steroid psychosis but has now been restarted at smaller dose. Robitussin AC PRN. Continue to encourage proning and supportive care. 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 BSG qACHS. She is eating more per nursing staff as she is feeling better. Cont to monitor glucose trend with new additional coverage. (4) Weakness: Plan: 2/2 covid. Encourage PT/OT when appropriate. As she improves from respiratory standpoint we will continue to mobilize her out of bed as much as able. (5) KATHRYN (acute kidney injury): Plan: Creatinine initially 1.7 on admission disease (08/11). Now back to baseline creatinine level (6) Diarrhea: Plan: 2/2 covid-resolved. (7) Rheumatoid arthritis: Plan: She has a history of rheumatoid arthritis. She prior treatment included prednisone, methotrexate, and NSAIDs and leflunomide. She has a history of ulcer/GI bleed Per outpatient documentation: Past treatments: methotrexate (discontinued 10/05/17 due to persistent thrombocytopenia), NSAIDs caused GIB, Arava stopped due to diarrhea; Enbrel was stopped due to anemia and thrombocytopenia Current regimen: prednisone, rituxan. Rituxan on hold and she continues on decadron. (8) Restless leg syndrome: Plan: Continue Mirapex per home regimen. (9) DVT prophylaxis: Plan: Lovenox Conditional code-DO NOT INTUBATE, CPR okay Disposition-continue PCU monitoring while on high flow oxygen supplementation [facility]tic[facility]ated Discharge Date Admission Date: August 11, 2021 Subjective 71 yo F with acute respiratory failure 2/2 covid pneumonia continues on vapotherm feels fatigued and generally weak but doing better, currently proned so exam and review of systems is limited. tolerating PO Review of Systems Review of Systems: At least ten systems were reviewed and negative except as indicated in HPI above. Physical Exam Physical Exam: CONSTITUTIONAL: obese, vitals as above, generally ill- appearing, NAD, currently in prone position. EYES: normal conjunctivae, no scleral icterus ENT: external ear and nose normal, MMM NECK: trachea midline RESPIRATORY: clear lungs to auscultation throughout, no rales or wheezes, normal respiratory effort on max hi flow settings. CARDIOVASCULAR: unable to assess as patient is proned and very comfortable at the moment, no peripheral edema GASTROINTESTINAL: unable to assess as patient is proned and very comfortable at the moment MUSCULOSKELETAL: generally weak, no gross focal deficits. Head is normocephalic and atraumatic SKIN: warm and dry NEUROLOGIC: CN 2-12 grossly intact, normal cognition, normal speech, no tremor, no gross focal deficits. PSYCHIATRIC: alert cooperative and oriented to person, place and time. Results & Data Results & Data ([facility]) Vital Signs (Past 12 Hours) Vital Signs Temp Pulse Pulse Pulse Resp BP Pulse Ox 08/20/21 07:44 36.7 C 88 21 117/91 89 L 08/20/21 05:54 79 18 92 08/20/21 03:36 36.5 C 74 18 142/80 H 90 08/20/21 03:28 70 15 91 08/19/21 23:00 87 08/19/21 22:51 36.7 C 97 H 18 148/86 H 91 (1) Diarrhea Diarrhea type: unspecified type Qualified Code(s): R19.7 - Diarrhea, unspecified
[2021-08-20] MEDS: ENOXAPARIN INJ 40 MG/0.4 ML SYR SQ SCH (18:02)
--- NOTE | 2021-08-20 19:18 | Hospitalist Progress Note ---
Date of Service August 20, 2021 Assessment & Plan (1) Acute respiratory failure due to severe acute respiratory syndrome c oronavirus 2 (SARS-CoV-2) infection: Plan: Unvaccinated patient with progressed need for oxygen supplementation, now on max high flow for several days. She is a DO NOT INTUBATE but is okay with CPR. Cont to prone as often as able. Completed remdesivir on 08/16. Decadron on hold with ?steroid psychosis but has now been restarted at smaller dose. Robitussin AC PRN. Continue to encourage proning and supportive care. (2) Pneumonia due to COVID-19 virus: Plan: Plan as above (3) Steroid-induced diabetes: Plan: Improved on basal bolus insulin and currently at goal. (4) Weakness: Plan: 2/2 covid. Encourage PT/OT when appropriate. As she improves from respiratory standpoint we will continue to mobilize her out of bed as much as able. (5) KATHRYN (acute kidney injury): Plan: Creatinine initially 1.7 on admission disease (08/11). Now back to baseline creatinine level (6) Diarrhea: Plan: 2/2 covid-resolved. (7) Rheumatoid arthritis: Plan: She has a history of rheumatoid arthritis. She prior treatment included prednisone, methotrexate, and NSAIDs and leflunomide. She has a history of ulcer/GI bleed Per outpatient documentation: Past treatments: methotrexate (discontinued 10/05/17 due to persistent thrombocytopenia), NSAIDs caused GIB, Arava stopped due to diarrhea; Enbrel was stopped due to anemia and thrombocytopenia Current regimen: prednisone, rituxan. Rituxan on hold and she continues on decadron. (8) Restless leg syndrome: Plan: Continue Mirapex per home regimen. (9) DVT prophylaxis: Plan: Lovenox Conditional code-DO NOT INTUBATE, CPR okay Disposition-continue PCU monitoring while on high flow oxygen supplementation Shira Gar DO [facility] Hospitalist Admission and Anticipated Discharge Date Admission Date: August 11, 2021 Subjective 71 yo F with acute respiratory failure 2/2 covid pneumonia continues on vapotherm feels fatigued and generally weak but doing better, she is more mentally alert today and conversing more appropriately denies acute issues except for weakness denies joint pain Review of Systems Review of Systems: At least ten systems were reviewed and negative except as indicated in HPI above. Physical Exam Physical Exam: CONSTITUTIONAL: obese, vitals as above, NAD, appears brighter today. EYES: normal conjunctivae, no scleral icterus ENT: external ear and nose normal, MMM NECK: trachea midline RESPIRATORY: crackles to bases bilaterally, no rales or wheezes, normal respiratory effort on max hi flow settings. CARDIOVASCULAR: reg rate nd rhythm, S1/2 heard, no mgr. No peripheral edema. GASTROINTESTINAL: soft, NTND, protuberant. MUSCULOSKELETAL: generally weak, no gross focal deficits. Head is normocephalic and atraumatic SKIN: warm and dry NEUROLOGIC: CN 2-12 grossly intact, normal cognition, normal speech, no tremor, no gross focal deficits. PSYCHIATRIC: alert cooperative and oriented to person, place and time. Results & Data Results & Data ([facility]) Vital Signs (Past 12 Hours) Vital Signs Temp Pulse Pulse Resp BP Pulse Ox 08/20/21 16:11 36.8 C 77 20 114/84 93 08/20/21 15:19 86 18 96 08/20/21 11:50 36.5 C 88 20 131/86 90 08/20/21 10:50 99 H 18 93 08/20/21 07:44 36.7 C 88 21 117/91 89 L Laboratory Results Short CBC 08/20/21 Range/Units 06:06 WBC 18.44 H (4.8-10.8) K/uL Hgb 15.0 (12.0-16.0) g/dL Hct 47.1 H (37-47) % Plt Count 225 (130-400) K/uL BMP 08/20/21 06:06 Sodium 136 Potassium 4.3 Chloride 100 Carbon Dioxide 32 BUN 33 H Creatinine 0.82 Glucose 163 H Calcium 9.5 Medications Administered Current Inpatient Medications Acetaminophen (Acetaminophen 325 Mg Tab) 650 mg PO Q4H PRN PRN Reason: Pain or Fever Stop: 09/10/21 23:53 Last Admin: 08/13/21 05:21 Dose: 650 mg Documented by: Calcium Carbonate (Calcium Carbonate 500 Mg Chewable Tab) 500 - 1,000 mg PO BID PRN PRN Reason: Indigestion Stop: 09/11/21 23:56 Last Admin: 08/19/21 21:10 Dose: 500 mg Documented by: Dexamethasone (Dexamethasone 4 Mg Tab) 4 mg PO DAILY [facility] Stop: 09/17/21 09:59 Last Admin: 08/20/21 08:55 Dose: 4 mg Documented by: Dextrose (Dextrose 50% 50 Ml Syringe) 25 - 50 ml IV UD PRN; Protocol PRN Reason: Hypoglycemia Protocol Stop: 09/17/21 09:55 Enoxaparin Sodium (Enoxaparin Inj 40 Mg/0.4 Ml Syr) 40 mg SQ Q24H TAL Stop: 09/13/21 15:59 Last Admin: 08/20/21 18:02 Dose: 40 mg Documented by: Ferrous Sulfate (Ferrous Sulfate 325 Mg Tab) 325 mg PO DAILY TAL Stop: 09/11/21 08:59 Last Admin: 08/20/21 08:55 Dose: 325 mg Documented by: Gabapentin (Gabapentin 400 Mg Cap) 400 mg PO QID TAL Stop: 09/11/21 08:59 Last Admin: 08/20/21 18:03 Dose: 400 mg Documented by: Glucagon (Glucagon For Inj 1 Mg Vial) 1 mg SQ UD PRN; Protocol PRN Reason: Hypoglycemia Protocol Stop: 09/17/21 09:55 Glucose (Glucose 10 Tabs/Tube) 4 - 8 tabs PO UD PRN; Protocol PRN Reason: Hypoglycemia Protocol Stop: 09/17/21 09:55 Glucose (Glucose 40% Gel 15 Gm Tube) 15 - 30 gm PO UD PRN; Protocol PRN Reason: Hypoglycemia Protocol Stop: 09/17/21 09:55 Guaifenesin/Codeine Phosphate (Guaifenesin/Codeine 200mg/20mg 10ml Udc) 10 ml PO Q6H PRN PRN Reason: Cough Stop: 09/14/21 16:15 Last Admin: 08/17/21 21:53 Dose: 10 ml Documented by: Furosemide 40 mg/ Syringe 4 mls @ 4 mls/min IV DAILY TAL Stop: 09/17/21 09:59 Last Admin: 08/20/21 08:55 Dose: 4 mls/min Documented by: Insulin Aspart (Insulin Aspart 100 Units/Ml 3 Ml Pen) 0 units SC ACHS TAL Stop: 09/17/21 11:29 Last Admin: 08/20/21 18:00 Dose: 7 units Documented by: Insulin Glargine (Insulin Glargine Solostar 100 Units/Ml 3 Ml Pen) 20 units SC BID TAL Stop: 09/17/21 21:14 Last Admin: 08/20/21 08:54 Dose: 20 units Documented by: Levalbuterol HCl (Levalbuterol Tartrate 15 Gm Hfa.Aer.Ad) 2 puffs INH Q4H PRN PRN Reason: sob/wheeze Stop: 09/10/21 23:53 Last Admin: 08/12/21 23:42 Dose: 2 puffs Documented by: Miscellaneous (Carbohydrates For Hypoglycemia ) 15 - 30 gm PO UD PRN PRN Reason: Hypoglycemia Protocol Stop: 09/17/21 09:55 Nitrofurantoin Macrocrystals (Nitrofurantoin Monohydrate 100 Mg Cap) 100 mg PO BID [facility]; Protocol Stop: 08/21/21 20:59 Last Admin: 08/20/21 08:55 Dose: 100 mg Documented by: Nystatin (Nystatin Susp 500,000 U/5 Ml Ud) 10 ml PO QID [facility] Stop: 08/26/21 16:59 Last Admin: 08/20/21 18:01 Dose: 10 ml Documented by: Pramipexole Dihydrochloride (Pramipexole Dihydrochlo 0.5 Mg Tab) 0.5 mg PO TID [facility] Stop: 09/11/21 08:59 Last Admin: 08/20/21 13:00 Dose: 0.5 mg Documented by: Trazodone HCl (Trazodone Hcl 50 Mg Tab) 50 mg PO HS [facility] Stop: 09/11/21 20:59 Last Admin: 08/19/21 20:49 Dose: 50 mg Documented by: (1) Diarrhea Diarrhea type: unspecified type Qualified Code(s): R19.7 - Diarrhea, unspecified
[2021-08-20] MEDS: traZODone HCL 50 MG TAB PO SCH (20:50)
[2021-08-21 08:22] LABS: BUN Creatinine Ratio 46.1 (10-20); Calcium 8.9 mg/dl (8.5-10.1); Est GFR (African American) 85.4 ml/min; Est GFR (Non-African American) 73.7 ml/min; Potassium 3.9 mmol/L (3.5-5.1)
[2021-08-21] MEDS: INSULIN ASPART 100 UNITS/ML 3 ML PEN SC SCH ×4 (09:45→20:33)
[2021-08-21] MEDS: FERROUS SULFATE 325 MG TAB PO SCH (09:46)
[2021-08-21] MEDS: GABAPENTIN 400 MG CAP PO SCH ×4 (09:46→19:53)
[2021-08-21] MEDS: dexAMETHasone 4 MG TAB PO SCH (09:46)
[2021-08-21] MEDS: PRAMIPEXOLE DIHYDROCHLO 0.5 MG TAB PO SCH ×3 (09:47→19:52)
[2021-08-21] MEDS: NYSTATIN SUSP 500,000 U/5 ML UDC PO SCH ×4 (09:47→19:52)
[2021-08-21] MEDS: INSULIN GLARGINE SOLOSTAR 100 UNITS/ML 3 ML PEN SC SCH ×2 (10:05→20:33)
[2021-08-21] MEDS: NITROFURANTOIN MONOHYDRATE 100 MG CAP PO SCH (11:32)
[2021-08-21] MEDS ORDERED: FUROSEMIDE 40 MG in SYRINGE 0 ML IV ONE (12:28)
[2021-08-21] MEDS ORDERED: FUROSEMIDE 40 MG/4 ML VIAL IV ONE (12:45)
[2021-08-21] MEDS: BENZONATATE 100 MG CAPSULE PO SCH ×2 (15:10→19:52)
[2021-08-21] MEDS: ENOXAPARIN INJ 40 MG/0.4 ML SYR SQ SCH (17:58)
--- NOTE | 2021-08-21 18:47 | Hospitalist Progress Note ---
Date of Service August 21, 2021 Assessment & Plan (1) Acute respiratory failure due to severe acute respiratory syndrome c oronavirus 2 (SARS-CoV-2) infection: (2) Steroid-induced diabetes: Plan: #. Acute respiratory failure due to severe acute respiratory syndrome coronavirus 2 (SARS-CoV-2) infection: #. Pneumonia due to COVID-19 virus: Unvaccinated patient with progressed need for oxygen supplementation, now on max high flow for several days. She is a DO NOT INTUBATE but is okay with CPR. Cont to prone as often as able. Completed remdesivir on 08/16. Decadron on hold with ?steroid psychosis but has now been restarted at smaller dose. Robitussin AC PRN and tessalon perles. Continue to encourage proning and supportive care. #. 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 #. Weakness: 2/2 covid. Encourage PT/OT when appropriate. As she improves from respiratory standpoint we will continue to mobilize her out of bed as much as able. #. KATHRYN (acute kidney injury): Creatinine initially 1.7 on admission disease (08/11). Now back to baseline creatinine level #. Diarrhea: 2/2 covid-resolved. #. Rheumatoid arthritis: She has a history of rheumatoid arthritis. She prior treatment included prednisone, methotrexate, and NSAIDs and leflunomide. She has a history of ulcer/GI bleed Per outpatient documentation: Past treatments: methotrexate (discontinued 10/05/17 due to persistent thrombocytopenia), NSAIDs caused GIB, Arava stopped due to diarrhea; Enbrel was stopped due to anemia and thrombocytopenia Current regimen: prednisone, rituxan. Rituxan on hold and she continues on decadron. #. Restless leg syndrome: Continue Mirapex per home regimen. #. DVT prophylaxis: Lovenox Conditional code-DO NOT INTUBATE, CPR okay Disposition-continue PCU monitoring while on high flow oxygen supplementation Admission and Anticipated Discharge Date Admission Date: August 11, 2021 Subjective Patient was lying semiupright in bed, on 50 L high flow oxygen, NAD. No acute events overnight. Denies any headache/dizziness/chest pain/other review of symptoms. Patient is eating and moving bowels okay. Physical Exam Physical Exam: GENERAL: Alert and oriented x3. NAD, on 50 L HEENT: No pallor, no icterus. Pupils equal, round and reactive to light. Oral mucosa moist. NECK: No JVD, no neck masses. HEART: S1 and S2 heard. Regular rate and rhythm. No murmur, no gallop. RESPIRATORY SYSTEM: Normal AP diameter. No accessory muscle use. No wheezing, no crackles. Decreased breath sounds bilaterally. ABDOMEN: Soft, bowel sounds present, nontender, no distention. CENTRAL NERVOUS SYSTEM: Alert and oriented x3. No facial droop. Speech is clear. Obeys simple commands. Moves extremities. EXTREMITIES: No edema, no erythema seen. Results & Data Results & Data ([facility]) Vital Signs (Past 12 Hours) Vital Signs Temp Pulse Pulse Resp BP BP Pulse Ox 08/21/21 18:09 87 22 89 L 08/21/21 15:20 36.7 C 85 20 127/76 91 08/21/21 15:05 78 20 97 08/21/21 12:10 36.5 C 88 19 130/90 97 08/21/21 10:09 99 H 20 93 08/21/21 08:00 78 90 08/21/21 07:36 36.5 C 83 19 128/88 92
[2021-08-21] MEDS: traZODone HCL 50 MG TAB PO SCH (19:52)
[2021-08-22 07:39] LABS: Hematocrit (blood only) 44.6 % (37-47); Hemoglobin 14.4 g/dL (12.0-16.0); Mean Corpuscular Hemoglobin 28.6 pg (25-34); Mean Corpuscular Hgb Conc 32.3 g/dL (32-36); Mean Corpuscular Volume 88.7 fL (80-100); Mean Platelet Volume 10.5 fL (7.4-10.4); Platelet Count 246 K/uL (130-400); RDW Coefficient of Variation 20.5 % (11.5-14.5); RDW Standard Deviation 67.6 fL (36.4-46.3); Red Blood Count 5.03 M/uL (4.2-5.4); White Blood Count 16.88 K/uL (4.8-10.8)
[2021-08-22 08:04] LABS: BUN Creatinine Ratio 45.4 (10-20); Calcium 8.7 mg/dl (8.5-10.1); Creatinine Clr Calc Pharmacy 60.4 ml/min; Est GFR (African American) 85.4 ml/min; Est GFR (Non-African American) 73.7 ml/min; Magnesium 2.6 mg/dl (1.8-2.4); Potassium 3.7 mmol/L (3.5-5.1)
[2021-08-22] MEDS ORDERED: FUROSEMIDE 20 MG in SYRINGE 0 ML IV ONE ×2 (08:56→09:15)
[2021-08-22] MEDS ORDERED: FUROSEMIDE 40 MG/4 ML VIAL IV ONE (09:15)
[2021-08-22] MEDS: GABAPENTIN 400 MG CAP PO SCH ×4 (09:20→21:22)
[2021-08-22] MEDS: dexAMETHasone 4 MG TAB PO SCH (09:21)
[2021-08-22] MEDS: BENZONATATE 100 MG CAPSULE PO SCH ×3 (09:21→21:20)
[2021-08-22] MEDS: FERROUS SULFATE 325 MG TAB PO SCH (09:21)
[2021-08-22] MEDS: PRAMIPEXOLE DIHYDROCHLO 0.5 MG TAB PO SCH ×3 (09:21→21:20)
[2021-08-22] MEDS: NYSTATIN SUSP 500,000 U/5 ML UDC PO SCH ×4 (09:22→21:20)
[2021-08-22] MEDS: INSULIN ASPART 100 UNITS/ML 3 ML PEN SC SCH ×4 (09:32→21:21)
[2021-08-22] MEDS: INSULIN GLARGINE SOLOSTAR 100 UNITS/ML 3 ML PEN SC SCH ×2 (09:33→21:22)
[2021-08-22] MEDS: ENOXAPARIN INJ 40 MG/0.4 ML SYR SQ SCH (15:57)
--- NOTE | 2021-08-22 18:17 | Hospitalist Progress Note ---
Date of Service August 22, 2021 Assessment & Plan (1) Acute respiratory failure due to severe acute respiratory syndrome c oronavirus 2 (SARS-CoV-2) infection: (2) Steroid-induced diabetes: Plan: #. Acute respiratory failure due to severe acute respiratory syndrome coronavirus 2 (SARS-CoV-2) infection: #. Pneumonia due to COVID-19 virus: Unvaccinated patient with progressed need for oxygen supplementation, now on max high flow for several days. She is a DO NOT INTUBATE but is okay with CPR. Cont to prone as often as able. Completed remdesivir on 08/16. Decadron on hold with ?steroid psychosis but has now been restarted at smaller dose. Robitussin AC PRN and tessalon perles. Continue to encourage proning and supportive care. Patient reporting doing spirometry more often, and reports feeling better. #. 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 #. Weakness: 2/2 covid. Encourage PT/OT when appropriate. As she improves from respiratory standpoint we will continue to mobilize her out of bed as much as able. #. KATHRYN (acute kidney injury): Creatinine initially 1.7 on admission disease (08/11). Now back to baseline creatinine level #. Diarrhea: 2/2 covid-resolved. #. Rheumatoid arthritis: She has a history of rheumatoid arthritis. She prior treatment included prednisone, methotrexate, and NSAIDs and leflunomide. She has a history of ulcer/GI bleed Per outpatient documentation: Past treatments: methotrexate (discontinued 10/05/17 due to persistent thrombocytopenia), NSAIDs caused GIB, Arava stopped due to diarrhea; Enbrel was stopped due to anemia and thrombocytopenia Current regimen: prednisone, rituxan. Rituxan on hold and she continues on decadron. #. Restless leg syndrome: Continue Mirapex per home regimen. #. DVT prophylaxis: Lovenox Conditional code-DO NOT INTUBATE, CPR okay Disposition-continue PCU monitoring while on high flow oxygen supplementation Admission and Anticipated Discharge Date Admission Date: August 11, 2021 Subjective Patient was sitting up in chair, on 50 L high flow oxygen, NAD. No acute events overnight. Patient reports feeling better. Also states that she has been doing spirometry more often than before. Denies any headache/dizziness/chest pain/other review of symptoms. Patient is eating and moving bowels okay. Physical Exam Physical Exam: GENERAL: Alert and oriented x3. NAD, on 50 L HEENT: No pallor, no icterus. Pupils equal, round and reactive to light. Oral mucosa moist. NECK: No JVD, no neck masses. HEART: S1 and S2 heard. Regular rate and rhythm. No murmur, no gallop. RESPIRATORY SYSTEM: Normal AP diameter. No accessory muscle use. No wheezing, no crackles. Decreased breath sounds bilaterally -improving. ABDOMEN: Soft, bowel sounds present, nontender, no distention. CENTRAL NERVOUS SYSTEM: No facial droop. Speech is clear. Obeys simple commands. Moves extremities. EXTREMITIES: No edema, no erythema seen. Results & Data Results & Data ([facility]) Vital Signs (Past 12 Hours) Vital Signs Temp Pulse Pulse Resp BP BP Pulse Ox 08/22/21 16:00 81 08/22/21 15:41 83 18 92 08/22/21 15:38 36.3 C L 86 20 125/86 91 08/22/21 11:32 36.6 C 98 H 20 132/84 91 08/22/21 11:05 72 19 90 08/22/21 08:00 78 08/22/21 07:51 79 20 89 L 08/22/21 07:30 36.4 C L 77 20 115/74 88 L
[2021-08-22] MEDS: traZODone HCL 50 MG TAB PO SCH (21:20)
[2021-08-23] MEDS: dexAMETHasone 4 MG TAB PO SCH (08:23)
[2021-08-23] MEDS: GABAPENTIN 400 MG CAP PO SCH ×4 (08:23→21:11)
[2021-08-23] MEDS: PRAMIPEXOLE DIHYDROCHLO 0.5 MG TAB PO SCH ×3 (08:25→21:12)
[2021-08-23] MEDS: INSULIN GLARGINE SOLOSTAR 100 UNITS/ML 3 ML PEN SC SCH ×2 (08:25→21:22)
[2021-08-23] MEDS: NYSTATIN SUSP 500,000 U/5 ML UDC PO SCH ×4 (08:26→21:11)
[2021-08-23] MEDS: INSULIN ASPART 100 UNITS/ML 3 ML PEN SC SCH ×4 (08:27→21:22)
[2021-08-23] MEDS: BENZONATATE 100 MG CAPSULE PO SCH ×3 (09:35→21:10)
[2021-08-23] MEDS: FERROUS SULFATE 325 MG TAB PO SCH (09:35)
[2021-08-23] MEDS ORDERED: SODIUM CHLORIDE 0.65% NA SOLN 45 ML (OCEAN) PRN (14:57)
[2021-08-23] MEDS ORDERED: FUROSEMIDE 40 MG in SYRINGE 0 ML IV ONE (14:59)
--- NOTE | 2021-08-23 15:00 | Hospitalist Progress Note ---
Date of Service August 23, 2021 Assessment & Plan (1) Acute respiratory failure due to severe acute respiratory syndrome c oronavirus 2 (SARS-CoV-2) infection: (2) Steroid-induced diabetes: Plan: #. Acute respiratory failure due to severe acute respiratory syndrome coronavirus 2 (SARS-CoV-2) infection: #. Pneumonia due to COVID-19 virus: Unvaccinated patient with progressed need for oxygen supplementation, now on max high flow for several days. She is a DO NOT INTUBATE but is okay with CPR. Cont to prone as often as able. Completed remdesivir on 08/16. Decadron on hold with ?steroid psychosis but has now been restarted at smaller dose. Robitussin AC PRN and tessalon perles. Continue to encourage proning and supportive care. Patient reporting doing spirometry more often, and reports feeling better. Currently requiring 40 L oxygen at bedside exam, will order nasal saline spray for nasal dryness/irritation. 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 #. 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 #. Weakness: 2/2 covid. Encourage PT/OT when appropriate. As she improves from respiratory standpoint we will continue to mobilize her out of bed as much as able. #. KATHRYN (acute kidney injury): Creatinine initially 1.7 on admission disease (08/11). Now back to baseline creatinine level #. Diarrhea: 2/2 covid-resolved. #. Rheumatoid arthritis: She has a history of rheumatoid arthritis. She prior treatment included prednisone, methotrexate, and NSAIDs and leflunomide. She has a history of ulcer/GI bleed Per outpatient documentation: Past treatments: methotrexate (discontinued 10/05/17 due to persistent thrombocytopenia), NSAIDs caused GIB, Arava stopped due to diarrhea; Enbrel was stopped due to anemia and thrombocytopenia Current regimen: prednisone, rituxan. Rituxan on hold and she continues on decadron. #. Restless leg syndrome: Continue Mirapex per home regimen. #. DVT prophylaxis: Lovenox Conditional code-DO NOT INTUBATE, CPR okay Disposition-continue PCU monitoring while on high flow oxygen supplementation Admission and Anticipated Discharge Date Admission Date: August 11, 2021 Subjective Patient was sitting up in chair, on 40 L high flow oxygen, NAD. No acute events overnight. Patient reports feeling better. Advised to continue with incentive spirometry every hour while awake. Patient reported feeling nasal dryness/irritation, will order nasal saline spray. Denies any headache/dizz iness/chest pain/other review of symptoms. Patient is eating and moving bowels okay. Physical Exam Physical Exam: GENERAL: Alert and oriented x3. NAD, on 40 L HEENT: No pallor, no icterus. Pupils equal, round and reactive to light. Oral mucosa moist. NECK: No JVD, no neck masses. HEART: S1 and S2 heard. Regular rate and rhythm. No murmur, no gallop. RESPIRATORY SYSTEM: Normal AP diameter. No accessory muscle use. No wheezing, no crackles. Decreased breath sounds bilaterally -improving. ABDOMEN: Soft, bowel sounds present, nontender, no distention. CENTRAL NERVOUS SYSTEM: No facial droop. Speech is clear. Obeys simple commands. Moves extremities. EXTREMITIES: trace edema, no erythema seen. Results & Data Results & Data ([facility]) Vital Signs (Past 12 Hours) Vital Signs Temp Pulse Pulse Pulse Resp BP Pulse Ox 08/23/21 11:30 80 20 98 08/23/21 10:43 36.3 C L 92 H 18 132/83 97 08/23/21 08:38 77 26 H 93 08/23/21 08:00 65 08/23/21 07:24 36.5 C 78 20 115/73 96 08/23/21 04:09 36.5 C 74 73 18 113/71 97 08/23/21 03:34 64 20 97
[2021-08-23] MEDS ORDERED: FUROSEMIDE 40 MG/4 ML VIAL IV ONE (15:15)
[2021-08-23] MEDS: ENOXAPARIN INJ 40 MG/0.4 ML SYR SQ SCH (16:02)
[2021-08-23] MEDS: traZODone HCL 50 MG TAB PO SCH (21:12)
[2021-08-24 06:34] LABS: Hematocrit (blood only) 41.2 % (37-47); Hemoglobin 13.4 g/dL (12.0-16.0); Mean Corpuscular Hemoglobin 28.6 pg (25-34); Mean Corpuscular Hgb Conc 32.5 g/dL (32-36); Mean Platelet Volume 9.9 fL (7.4-10.4); Platelet Count 230 K/uL (130-400); RDW Coefficient of Variation 19.9 % (11.5-14.5); RDW Standard Deviation 64.9 fL (36.4-46.3); Red Blood Count 4.68 M/uL (4.2-5.4); White Blood Count 15.38 K/uL (4.8-10.8)
[2021-08-24 07:11] LABS: BUN Creatinine Ratio 36.5 (10-20); Calcium 8.9 mg/dl (8.5-10.1); Creatinine Clr Calc Pharmacy 54.4 ml/min; Est GFR (Non-African American) 63.9 ml/min; Potassium 3.5 mmol/L (3.5-5.1)
[2021-08-24] MEDS ORDERED: POTASSIUM CHLORIDE CRTAB 20 MEQ TABCR PO STA (07:56)
[2021-08-24] MEDS: BENZONATATE 100 MG CAPSULE PO SCH ×3 (09:24→21:10)
[2021-08-24] MEDS: NYSTATIN SUSP 500,000 U/5 ML UDC PO SCH ×4 (09:24→21:10)
[2021-08-24] MEDS: GABAPENTIN 400 MG CAP PO SCH ×4 (09:27→21:10)
[2021-08-24] MEDS: PRAMIPEXOLE DIHYDROCHLO 0.5 MG TAB PO SCH ×3 (09:27→21:15)
[2021-08-24] MEDS: dexAMETHasone 4 MG TAB PO SCH (09:28)
[2021-08-24] MEDS: FERROUS SULFATE 325 MG TAB PO SCH (09:29)
[2021-08-24] MEDS: INSULIN ASPART 100 UNITS/ML 3 ML PEN SC SCH ×4 (09:40→21:09)
[2021-08-24] MEDS: INSULIN GLARGINE SOLOSTAR 100 UNITS/ML 3 ML PEN SC SCH ×2 (09:40→21:09)
--- NOTE | 2021-08-24 15:54 | Hospitalist Progress Note ---
Date of Service August 24, 2021 Assessment & Plan (1) Acute respiratory failure due to severe acute respiratory syndrome c oronavirus 2 (SARS-CoV-2) infection: (2) Steroid-induced diabetes: Plan: #. Acute respiratory failure due to severe acute respiratory syndrome coronavirus 2 (SARS-CoV-2) infection: #. Pneumonia due to COVID-19 virus: Unvaccinated patient with progressed need for oxygen supplementation, now on max high flow for several days. She is a DO NOT INTUBATE but is okay with CPR. Cont to prone as often as able. Completed remdesivir on 08/16. Decadron on hold with ?steroid psychosis but has now been restarted at smaller dose. Robitussin AC PRN and tessalon perles. Continue to encourage proning and supportive care. Patient reporting doing spirometry more often, and reports feeling better. Currently requiring 30 L oxygen at bedside exam, c/w nasal saline spray for nasal dryness/irritation. Is and Os -4.3 L, as needed Lasix (with monitoring of lytes) to keep her on drier and grinder tender side. #. 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 #. Weakness: 2/2 covid. Encourage PT/OT when appropriate. As she improves from respiratory standpoint we will continue to mobilize her out of bed as much as able. #. KATHRYN (acute kidney injury): Creatinine initially 1.7 on admission disease (08/11). Now back to baseline creatinine level #. Diarrhea: 2/2 covid-resolved. #. Rheumatoid arthritis: She has a history of rheumatoid arthritis. She prior treatment included prednisone, methotrexate, and NSAIDs and leflunomide. She has a history of ulcer/GI bleed Per outpatient documentation: Past treatments: methotrexate (discontinued 10/05/17 due to persistent thrombocytopenia), NSAIDs caused GIB, Arava stopped due to diarrhea; Enbrel was stopped due to anemia and thrombocytopenia Current regimen: prednisone, rituxan. Rituxan on hold and she continues on decadron. #. Restless leg syndrome: Continue Mirapex per home regimen. #. DVT prophylaxis: Lovenox Conditional code-DO NOT INTUBATE, CPR okay Disposition-continue PCU monitoring while on high flow oxygen supplementation Admission and Anticipated Discharge Date Admission Date: August 11, 2021 Subjective Patient was sitting up in chair, on 30 L high flow oxygen, NAD. No acute events overnight. Patient reports feeling better. Advised to continue with incentive spirometry every hour while awake. Denies any headache/dizziness/chest pain/other review of symptoms. Patient is eating and moving bowels okay. Will DC Olguin. Physical Exam Physical Exam: GENERAL: Alert and oriented x3. NAD, on 30 L HEENT: No pallor, no icterus. Pupils equal, round and reactive to light. Oral mucosa moist. NECK: No JVD, no neck masses. HEART: S1 and S2 heard. Regular rate and rhythm. No murmur, no gallop. RESPIRATORY SYSTEM: Normal AP diameter. No accessory muscle use. No wheezing, no crackles. Decreased breath sounds bilaterally -improving. ABDOMEN: Soft, bowel sounds present, nontender, no distention. CENTRAL NERVOUS SYSTEM: No facial droop. Speech is clear. Obeys simple commands. Moves extremities. EXTREMITIES: trace edema, no erythema seen. Results & Data Results & Data ([facility]) Vital Signs (Past 12 Hours) Vital Signs Temp Pulse Pulse Pulse Resp BP BP 08/24/21 12:12 36.8 C 75 25 H 109/76 08/24/21 08:09 36.5 C 69 19 117/79 08/24/21 08:00 81 08/24/21 07:23 66 20 08/24/21 05:36 36.8 C 64 20 117/55 L 08/24/21 03:52 55 L 19 Pulse Ox 08/24/21 12:12 93 08/24/21 08:09 97 08/24/21 08:00 08/24/21 07:23 92 08/24/21 05:36 90 08/24/21 03:52 93
[2021-08-24] MEDS: ENOXAPARIN INJ 40 MG/0.4 ML SYR SQ SCH (16:45)
[2021-08-24] MEDS: traZODone HCL 50 MG TAB PO SCH (21:15)
[2021-08-25] MEDS: PRAMIPEXOLE DIHYDROCHLO 0.5 MG TAB PO SCH ×3 (09:13→20:45)
[2021-08-25] MEDS: NYSTATIN SUSP 500,000 U/5 ML UDC PO SCH ×4 (09:13→20:45)
[2021-08-25] MEDS: FERROUS SULFATE 325 MG TAB PO SCH (09:14)
[2021-08-25] MEDS: BENZONATATE 100 MG CAPSULE PO SCH ×3 (09:14→20:45)
[2021-08-25] MEDS: GABAPENTIN 400 MG CAP PO SCH ×4 (09:14→20:45)
[2021-08-25] MEDS: INSULIN ASPART 100 UNITS/ML 3 ML PEN SC SCH ×4 (09:16→20:52)
[2021-08-25] MEDS: dexAMETHasone 4 MG TAB PO SCH (09:16)
[2021-08-25] MEDS: INSULIN GLARGINE SOLOSTAR 100 UNITS/ML 3 ML PEN SC SCH ×2 (09:18→20:52)
[2021-08-25] MEDS ORDERED: FUROSEMIDE 20 MG in SYRINGE 0 ML IV ONE (09:45)
[2021-08-25] MEDS: ENOXAPARIN INJ 40 MG/0.4 ML SYR SQ SCH (16:41)
--- NOTE | 2021-08-25 17:32 | Hospitalist Progress Note ---
Date of Service August 25, 2021 Assessment & Plan (1) Acute respiratory failure due to severe acute respiratory syndrome c oronavirus 2 (SARS-CoV-2) infection: (2) Steroid-induced diabetes: Plan: #. Acute respiratory failure due to severe acute respiratory syndrome coronavirus 2 (SARS-CoV-2) infection: #. Pneumonia due to COVID-19 virus: Unvaccinated patient with progressed need for oxygen supplementation, now on max high flow for several days. She is a DO NOT INTUBATE but is okay with CPR. Cont to prone as often as able. Completed remdesivir on 08/16. Decadron on hold with ?steroid psychosis but has now been restarted at smaller dose. Robitussin AC PRN and tessalon perles. Continue to encourage proning and supportive care. Patient reporting doing spirometry more often, and reports feeling better. Currently requiring 30 L oxygen at bedside exam, c/w nasal saline spray for nasal dryness/irritation. 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 #. 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 #. Weakness: 2/2 covid. Encourage PT/OT when appropriate. As she improves from respiratory standpoint we will continue to mobilize her out of bed as much as able. #. KATHRYN (acute kidney injury): Creatinine initially 1.7 on admission disease (08/11). Now back to baseline creatinine level #. Diarrhea: 2/2 covid-resolved. #. Rheumatoid arthritis: She has a history of rheumatoid arthritis. She prior treatment included prednisone, methotrexate, and NSAIDs and leflunomide. She has a history of ulcer/GI bleed Per outpatient documentation: Past treatments: methotrexate (discontinued 10/05/17 due to persistent thrombocytopenia), NSAIDs caused GIB, Arava stopped due to diarrhea; Enbrel was stopped due to anemia and thrombocytopenia Current regimen: prednisone, rituxan. Rituxan on hold and she continues on decadron. #. Restless leg syndrome: Continue Mirapex per home regimen. #. DVT prophylaxis: Lovenox Conditional code-DO NOT INTUBATE, CPR okay Disposition-continue PCU monitoring while on high flow oxygen supplementation Admission and Anticipated Discharge Date Admission Date: August 11, 2021 Subjective Patient was sitting up in chair, on 8 L high flow oxygen, NAD. No acute events overnight. Patient feels better. Advised to continue with incentive spirometry every hour while awake. Denies any headache/dizziness/chest pain/other review of symptoms. Patient is eating and moving bowels okay. Physical Exam Physical Exam: GENERAL: Alert and oriented x3. NAD, on 8 L HEENT: No pallor, no icterus. Pupils equal, round and reactive to light. Oral mucosa moist. NECK: No JVD, no neck masses. HEART: S1 and S2 heard. Regular rate and rhythm. No murmur, no gallop. RESPIRATORY SYSTEM: Normal AP diameter. No accessory muscle use. No wheezing, no crackles. Decreased breath sounds bilaterally - improving. ABDOMEN: Soft, bowel sounds present, nontender, no distention. CENTRAL NERVOUS SYSTEM: No facial droop. Speech is clear. Obeys simple commands. Moves extremities. EXTREMITIES: trace edema, no erythema seen. Results & Data Results & Data ([facility]) Vital Signs (Past 12 Hours) Vital Signs Temp Pulse Pulse Resp BP BP Pulse Ox 08/25/21 16:37 36.5 C 74 18 146/83 H 93 08/25/21 11:46 36.8 C 73 18 107/77 92 08/25/21 08:00 90 08/25/21 07:42 36.4 C L 64 18 125/68 92
[2021-08-25] MEDS: traZODone HCL 50 MG TAB PO SCH (20:45)
[2021-08-26 07:12] LABS: Hematocrit (blood only) 36.8 % (37-47); Hemoglobin 11.9 g/dL (12.0-16.0); Mean Corpuscular Hemoglobin 28.7 pg (25-34); Mean Corpuscular Hgb Conc 32.3 g/dL (32-36); Mean Corpuscular Volume 88.7 fL (80-100); Mean Platelet Volume 10.1 fL (7.4-10.4); Platelet Count 194 K/uL (130-400); RDW Coefficient of Variation 19.9 % (11.5-14.5); RDW Standard Deviation 65.7 fL (36.4-46.3); Red Blood Count 4.15 M/uL (4.2-5.4); White Blood Count 12.23 K/uL (4.8-10.8)
[2021-08-26 07:42] LABS: BUN Creatinine Ratio 38.7 (10-20); Calcium 8.6 mg/dl (8.5-10.1); Est GFR (African American) 89.4 ml/min; Est GFR (Non-African American) 77.1 ml/min; Magnesium 2.6 mg/dl (1.8-2.4); Potassium 3.8 mmol/L (3.5-5.1)
[2021-08-26] MEDS ORDERED: FUROSEMIDE 20 MG in SYRINGE 0 ML IV ONE (08:46)
[2021-08-26] MEDS: INSULIN ASPART 100 UNITS/ML 3 ML PEN SC SCH ×4 (08:50→20:09)
[2021-08-26] MEDS ORDERED: FUROSEMIDE 40 MG/4 ML VIAL IV ONE (09:00)
[2021-08-26] MEDS ORDERED: PHARMACY GLYCEMIC MGMT CONSULT PRN (09:07)
[2021-08-26] MEDS: BENZONATATE 100 MG CAPSULE PO SCH ×3 (09:08→20:03)
[2021-08-26] MEDS: dexAMETHasone 4 MG TAB PO SCH (09:08)
[2021-08-26] MEDS: FERROUS SULFATE 325 MG TAB PO SCH (09:09)
[2021-08-26] MEDS: PRAMIPEXOLE DIHYDROCHLO 0.5 MG TAB PO SCH ×3 (09:09→20:03)
[2021-08-26] MEDS: GABAPENTIN 400 MG CAP PO SCH ×4 (09:10→20:03)
[2021-08-26] MEDS: NYSTATIN SUSP 500,000 U/5 ML UDC PO SCH ×2 (09:10→13:34)
[2021-08-26] MEDS: INSULIN GLARGINE SOLOSTAR 100 UNITS/ML 3 ML PEN SC SCH ×2 (09:14→20:09)
[2021-08-26] MEDS ORDERED: FUROSEMIDE 40 MG/4 ML VIAL IV SCH (09:15)
--- NOTE | 2021-08-26 09:46 | Pharmacy Report ---
Pharmacy Glycemic Short Note 2 - Date of Service August 26, 2021 - Glycemic Short BSG Results (Last 24 hours): 08/25/21 08/25/21 08/25/21 11:50 16:59 20:26 Glucose POC Glucose 130 H 140 H 193 H 08/26/21 08/26/21 08/26/21 06:21 07:36 07:39 Glucose 71 POC Glucose 66 L* 69 L* 08/26/21 08:06 Glucose POC Glucose 107 H OUTPATIENT ANTIDIABETIC REGIMEN: * N/A * HbA1c: ordered for tomorrow (08/27) ASSESSMENT: * DP is a 71 year old female admitted on 08/11/21 with COVID-19 pneumonia * No known history of diabetes, hyperglycemia is likely steroid-induced * Pharmacy consulted morning of 08/26/21 due to hypoglycemia (66 mg/dL) * Consistent trend noted of low fasting BSGs with increasing BSGs throughout the day * Will decrease basal insulin today and lower BSG goal range from 140-180 to 120-150 mg/dL PLAN FOR INPATIENT GLYCEMIC CONTROL: * Basal insulin * Lantus 20 units SC daily (given prior to consult) * Lantus 0-10 units SC HS (see EHR for details) * Bolus insulin * NovoLog per scale ACHS or Q6hrs while NPO * Goal Range: Low 120 mg/dL - High 150 mg/dL * Correction Factor: 25 mg/dL/unit * Nutritional / Prandial insulin per carb ratio of 1 unit per 8 grams CHO consumed PLAN FOR DISCHARGE: * tbd pending HbA1c
--- NOTE | 2021-08-26 16:10 | Hospitalist Progress Note ---
Date of Service August 26, 2021 Assessment & Plan (1) Acute respiratory failure due to severe acute respiratory syndrome c oronavirus 2 (SARS-CoV-2) infection: (2) Steroid-induced diabetes: Plan: #. Acute respiratory failure due to severe acute respiratory syndrome coronavirus 2 (SARS-CoV-2) infection: #. Pneumonia due to COVID-19 virus: Unvaccinated patient with progressed need for oxygen supplementation, now on max high flow for several days. She is a DO NOT INTUBATE but is okay with CPR. Cont to prone as often as able. Completed remdesivir on 08/16. Decadron on hold with ?steroid psychosis but has now been restarted at smaller dose. Robitussin AC PRN and tessalon perles. Continue to encourage proning and supportive care. Patient reporting doing spirometry more often, and reports feeling better. Currently requiring 8 L oxygen at bedside exam, c/w nasal saline spray for nasal dryness/irritation. 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 #. 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 Glycemic pharmacy on board. #. Weakness: 2/2 covid. Encourage PT/OT when appropriate. As she improves from respiratory standpoint we will continue to mobilize her out of bed as much as able. #. KATHRYN (acute kidney injury): Creatinine initially 1.7 on admission disease (08/11). Now back to baseline creatinine level #. Diarrhea: 2/2 covid-resolved. #. Rheumatoid arthritis: She has a history of rheumatoid arthritis. She prior treatment included prednisone, methotrexate, and NSAIDs and leflunomide. She has a history of ulcer/GI bleed Per outpatient documentation: Past treatments: methotrexate (discontinued 10/05/17 due to persistent thrombocytopenia), NSAIDs caused GIB, Arava stopped due to diarrhea; Enbrel was stopped due to anemia and thrombocytopenia Current regimen: prednisone, rituxan. Rituxan on hold and she continues on decadron. #. Restless leg syndrome: Continue Mirapex per home regimen. #. DVT prophylaxis: Lovenox Conditional code-DO NOT INTUBATE, CPR okay Disposition-continue PCU monitoring while on high flow oxygen supplementation. Admission and Anticipated Discharge Date Admission Date: August 11, 2021 Subjective Patient was sitting up in chair, on 8 L high flow oxygen, NAD. No acute events overnight. Patient feels better. Advised to continue with incentive spirometry every hour while awake. Denies any headache/dizziness/chest pain/other review of symptoms. Patient is eating and moving bowels (2d ago) okay. Physical Exam Physical Exam: GENERAL: Alert and oriented x3. NAD, on 8 L HEENT: No pallor, no icterus. Pupils equal, round and reactive to light. Oral mucosa moist. NECK: No JVD, no neck masses. HEART: S1 and S2 heard. Regular rate and rhythm. No murmur, no gallop. RESPIRATORY SYSTEM: Normal AP diameter. No accessory muscle use. No wheezing, no crackles. Decreased breath sounds bilaterally - improving. ABDOMEN: Soft, bowel sounds present, nontender, no distention. CENTRAL NERVOUS SYSTEM: No facial droop. Speech is clear. Obeys simple commands. Moves extremities. EXTREMITIES: trace edema, no erythema seen. Results & Data Results & Data ([facility]) Vital Signs (Past 12 Hours) Vital Signs Temp Pulse Pulse Resp BP BP Pulse Ox 08/26/21 15:21 36.3 C L 82 20 126/70 92 08/26/21 14:47 92 08/26/21 11:58 36.6 C 67 19 100/71 91 08/26/21 11:26 08/26/21 08:00 74 08/26/21 07:40 36.5 C 62 107/63 93 Pulse Ox Pulse Ox 08/26/21 15:21 08/26/21 14:47 08/26/21 11:58 08/26/21 11:26 80 L 90 08/26/21 08:00 08/26/21 07:40
[2021-08-26] MEDS: ENOXAPARIN INJ 40 MG/0.4 ML SYR SQ SCH (17:19)
[2021-08-26] MEDS: POLYETHYLENE (MIRALAX) 17 GM PACK PO SCH (17:19)
[2021-08-26] MEDS: traZODone HCL 50 MG TAB PO SCH (20:03)
[2021-08-27 08:05] LABS: Estimated Average Glucose 146 mg/dl; Hemoglobin A1C 6.7 % (4.5-5.6)
[2021-08-27] MEDS ORDERED: FUROSEMIDE INJ 20 MG/2 ML VIAL IV ONE (08:32)
[2021-08-27] MEDS: BENZONATATE 100 MG CAPSULE PO SCH ×3 (08:49→20:51)
[2021-08-27] MEDS: INSULIN ASPART 100 UNITS/ML 3 ML PEN SC SCH ×4 (08:50→20:43)
[2021-08-27] MEDS: GABAPENTIN 400 MG CAP PO SCH ×4 (08:50→20:51)
[2021-08-27] MEDS: dexAMETHasone 4 MG TAB PO SCH (08:50)
[2021-08-27] MEDS: PRAMIPEXOLE DIHYDROCHLO 0.5 MG TAB PO SCH ×3 (08:50→20:51)
[2021-08-27] MEDS: FERROUS SULFATE 325 MG TAB PO SCH (08:50)
[2021-08-27] MEDS: POLYETHYLENE (MIRALAX) 17 GM PACK PO SCH (08:51)
[2021-08-27] MEDS ORDERED: INSULIN GLARGINE SOLOSTAR 100 UNITS/ML 3 ML PEN SC SCH (09:00)
--- NOTE | 2021-08-27 10:54 | Pharmacy Report ---
Pharmacy Glycemic Short Note 2 - Date of Service August 27, 2021 - Glycemic Short BSG Results (Last 24 hours): 08/26/21 08/26/21 08/26/21 11:54 16:49 19:48 POC Glucose 90 115 H 167 H 08/27/21 07:22 POC Glucose 71 OUTPATIENT ANTIDIABETIC REGIMEN: * N/A * HbA1c: 6.7% (08/27/21) ASSESSMENT: 08/27: * BSGs yesterday of 66, 90, 115, and 167 mg/dL * 25% basal reduction yesterday (30 units down from 40 units) * Fasting BSG of 71 mg/dL this morning * Will allow for further basal reduction today based on BSG * Continues on PO dexamethasone 4 mg PO daily 08/26: * DP is a 71 year old female admitted on 08/11/21 with COVID-19 pneumonia * No known history of diabetes, hyperglycemia is likely steroid-induced * Pharmacy consulted morning of 08/26/21 due to hypoglycemia (66 mg/dL) * Consistent trend noted of low fasting BSGs with increasing BSGs throughout the day * Will decrease basal insulin today and lower BSG goal range from 140-180 to 120-150 mg/dL PLAN FOR INPATIENT GLYCEMIC CONTROL: * Basal insulin - allow for dose reduction vs. continue daily dose from yesterday * Lantus 15 units SC qAM * Lantus 10-15 units SC HS (see EHR for details) * Bolus insulin - continue * NovoLog per scale ACHS or Q6hrs while NPO * Goal Range: Low 120 mg/dL - High 150 mg/dL * Correction Factor: 25 mg/dL/unit * Nutritional / Prandial insulin per carb ratio of 1 unit per 8 grams CHO consumed PLAN FOR DISCHARGE: * Patient meets criteria for new diagnosis given HbA1c of 6.7%, however this A1c might be slightly falsely elevated given steroid use for duration of this hospitalization starting on 08/12/21. * Believe it is reasonable to encourage healthy lifestyle/diet since inpatient hyperglycemia is likely related to steroids * If treatment is desired, then consider Metformin XR 500mg PO daily with evening meal. Typically the XR formulation of metformin is better tolerated than the immediate release formulation. Continue to titrate metformin dosing upwards as recommended. Dosage increases should be made in increments of 500 mg weekly, up to 2,000 mg/day PO, given in divided doses. * Metformin is effective and safe, is inexpensive, and may reduce risk of cardiovascular events and .
--- NOTE | 2021-08-27 16:44 | Hospitalist Progress Note ---
Date of Service August 27, 2021 Assessment & Plan (1) Acute respiratory failure due to severe acute respiratory syndrome c oronavirus 2 (SARS-CoV-2) infection: (2) Steroid-induced diabetes: Plan: #. Acute respiratory failure due to severe acute respiratory syndrome coronavirus 2 (SARS-CoV-2) infection: #. Pneumonia due to COVID-19 virus: Unvaccinated patient with progressed need for oxygen supplementation, now on max high flow for several days. She is a DO NOT INTUBATE but is okay with CPR. Cont to prone as often as able. Completed remdesivir on 08/16. Decadron on hold with ?steroid psychosis but has now been restarted at smaller dose. will DC decadron on 08/27. Robitussin AC PRN and tessalon perles. Continue to encourage proning and supportive care. Patient reporting doing spirometry more often, and reports feeling better. Currently requiring 87L oxygen at bedside exam, c/w nasal saline spray for nasal dryness/irritation. Is and Os -1.1 L per chart, as needed Lasix (with monitoring of lytes) to keep her on graphite pan drier tender side. #. 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 Glycemic pharmacy on board. #. Weakness: 2/2 covid. Encourage PT/OT when appropriate. As she improves from respiratory standpoint we will continue to mobilize her out of bed as much as able. #. KATHRYN (acute kidney injury): Creatinine initially 1.7 on admission disease (08/11). Now back to baseline creatinine level #. Diarrhea: 2/2 covid-resolved. #. Rheumatoid arthritis: She has a history of rheumatoid arthritis. She prior treatment included prednisone, methotrexate, and NSAIDs and leflunomide. She has a history of ulce r/GI bleed Per outpatient documentation: Past treatments: methotrexate (discontinued 10/05/17 due to persistent thrombocytopenia), NSAIDs caused GIB, Arava stopped due to diarrhea; Enbrel was stopped due to anemia and thrombocytopenia Current regimen: prednisone, rituxan. Rituxan on hold and she continues on decadron. #. Restless leg syndrome: Continue Mirapex per home regimen. #. DVT prophylaxis: Lovenox Conditional code-DO NOT INTUBATE, CPR okay Disposition-continue PCU monitoring while on high flow oxygen supplementation. Admission and Anticipated Discharge Date Admission Date: August 11, 2021 Subjective Patient was sitting up in chair, on 7 L high flow oxygen, NAD. No acute events overnight. Patient feels better. Advised to continue with incentive spirometry every hour while awake. Denies any headache/dizziness/chest pain/other review of symptoms. Patient is eating and moving bowels okay. Patient reports that she slept very well overnight, Physical Exam Physical Exam: GENERAL: Alert and oriented x3. NAD, on 7 L HEENT: No pallor, no icterus. Pupils equal, round and reactive to light. Oral mucosa moist. NECK: No JVD, no neck masses. HEART: S1 and S2 heard. Regular rate and rhythm. No murmur, no gallop. RESPIRATORY SYSTEM: Normal AP diameter. No accessory muscle use. No wheezing, no crackles. Decreased breath sounds bilaterally - improving. ABDOMEN: Soft, bowel sounds present, nontender, no distention. CENTRAL NERVOUS SYSTEM: No facial droop. Speech is clear. Obeys simple commands. Moves extremities. EXTREMITIES: trace edema, no erythema seen. Results & Data Results & Data ([facility]) Vital Signs (Past 12 Hours) Vital Signs Temp Pulse Pulse Resp BP BP Pulse Ox 08/27/21 15:49 36.8 C 71 16 107/62 93 08/27/21 11:39 36.5 C 84 18 115/70 90 08/27/21 07:46 53 L 08/27/21 07:15 36.4 C L 67 22 149/71 H 90
[2021-08-27] MEDS: ENOXAPARIN INJ 40 MG/0.4 ML SYR SQ SCH (17:44)
[2021-08-27] MEDS: INSULIN GLARGINE SOLOSTAR 100 UNITS/ML 3 ML PEN SC SCH (20:43)
[2021-08-27] MEDS: traZODone HCL 50 MG TAB PO SCH (20:52)
[2021-08-28] MEDS: INSULIN ASPART 100 UNITS/ML 3 ML PEN SC SCH ×4 (08:00→21:41)
[2021-08-28 08:09] LABS: Hematocrit (blood only) 39.6 % (37-47); Hemoglobin 12.4 g/dL (12.0-16.0); Mean Corpuscular Hemoglobin 28.3 pg (25-34); Mean Corpuscular Hgb Conc 31.3 g/dL (32-36); Mean Corpuscular Volume 90.4 fL (80-100); Mean Platelet Volume 10.2 fL (7.4-10.4); Platelet Count 200 K/uL (130-400); RDW Coefficient of Variation 19.9 % (11.5-14.5); RDW Standard Deviation 67.4 fL (36.4-46.3); Red Blood Count 4.38 M/uL (4.2-5.4)
[2021-08-28] MEDS: PRAMIPEXOLE DIHYDROCHLO 0.5 MG TAB PO SCH ×3 (08:27→20:32)
[2021-08-28] MEDS: GABAPENTIN 400 MG CAP PO SCH ×4 (08:27→20:31)
[2021-08-28] MEDS: FERROUS SULFATE 325 MG TAB PO SCH (08:27)
[2021-08-28] MEDS: BENZONATATE 100 MG CAPSULE PO SCH ×3 (08:27→20:33)
[2021-08-28 08:38] LABS: BUN Creatinine Ratio 43.5 (10-20); Calcium 9.2 mg/dl (8.5-10.1); Creatinine Clr Calc Pharmacy 56.9 ml/min; Est GFR (African American) 80.5 ml/min; Est GFR (Non-African American) 69.4 ml/min
[2021-08-28] MEDS ORDERED: BENZOCAINE/MENTHOL 18 LOZ/1 BOX MT PRN (08:40)
[2021-08-28] MEDS ORDERED: OXYMETAZOLINE 0.05% 30 ML BTL ONE (08:42)
--- NOTE | 2021-08-28 11:52 | Pharmacy Report ---
Pharmacy Glycemic Short Note 2 - Date of Service August 28, 2021 - Glycemic Short BSG Results (Last 24 hours): 08/27/21 08/27/21 08/28/21 16:38 20:34 07:08 Glucose 92 POC Glucose 170 H 205 H 08/28/21 08/28/21 07:58 11:41 Glucose POC Glucose 76 105 H OUTPATIENT ANTIDIABETIC REGIMEN: * N/A * HbA1c: 6.7% (08/27/21) ASSESSMENT: 08-28: * Steroids discontinued yesterday, plan to hold further basal insulin today * Fasting BSG 92 mg/dL - will continue with only correctional insulin today 08/27: * BSGs yesterday of 66, 90, 115, and 167 mg/dL * 25% basal reduction yesterday (30 units down from 40 units) * Fasting BSG of 71 mg/dL this morning * Will allow for further basal reduction today based on BSG * Continues on PO dexamethasone 4 mg PO daily 08/26: * DP is a 71 year old female admitted on 08/11/21 with COVID-19 pneumonia * No known history of diabetes, hyperglycemia is likely steroid-induced * Pharmacy consulted morning of 08/26/21 due to hypoglycemia (66 mg/dL) * Consistent trend noted of low fasting BSGs with increasing BSGs throughout the day * Will decrease basal insulin today and lower BSG goal range from 140-180 to 120-150 mg/dL PLAN FOR INPATIENT GLYCEMIC CONTROL: * Basal insulin - allow for dose reduction vs. continue daily dose from yesterday * Lantus 15 units SC qAM * Lantus 10-15 units SC HS (see EHR for details) * Bolus insulin - continue * NovoLog per scale ACHS or Q6hrs while NPO * Goal Range: Low 120 mg/dL - High 150 mg/dL * Correction Factor: 25 mg/dL/unit * Nutritional / Prandial insulin per carb ratio of 1 unit per 8 grams CHO consumed PLAN FOR DISCHARGE: * Patient meets criteria for new diagnosis given HbA1c of 6.7%, however this A1c might be slightly falsely elevated given steroid use for duration of this hospitalization starting on 08/12/21. * Believe it is reasonable to encourage healthy lifestyle/diet since inpatient hyperglycemia is likely related to steroids * If treatment is desired, then consider Metformin XR 500mg PO daily with evening meal. Typically the XR formulation of metformin is better tolerated than the immediate release formulation. Continue to titrate metformin dosing upwards as recommended. Dosage increases should be made in increments of 500 mg weekly, up to 2,000 mg/day PO, given in divided doses. * Metformin is effective and safe, is inexpensive, and may reduce risk of cardiovascular events and .
--- NOTE | 2021-08-28 13:18 | Hospitalist Progress Note ---
Date of Service August 28, 2021 Assessment & Plan (1) Acute respiratory failure due to severe acute respiratory syndrome c oronavirus 2 (SARS-CoV-2) infection: (2) Steroid-induced diabetes: Plan: #. Acute respiratory failure due to severe acute respiratory syndrome coronavirus 2 (SARS-CoV-2) infection: #. Pneumonia due to COVID-19 virus: Unvaccinated patient with progressed need for oxygen supplementation She is a DO NOT INTUBATE but is okay with CPR. Cont to prone as often as able. Completed remdesivir on 08/16. Decadron was briefly held due to ?steroid psychosis but was restarted at smaller dose. Completed on 08/27 Continue to encourage proning and supportive care. Continue incentive spirometry Epistaxis likely due to nasal oxygen. Stopped at this time. Oxygen is humidified Down to 4l/min from 6l/min overnight. Continue to wean Will give a dose of lasix 20 #. 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 Glycemic pharmacy on board. #. Weakness: 2/2 covid. Encourage OOB PT/OT CM working on rehab #. KATHRYN (acute kidney injury): Creatinine initially 1.7 on admission disease (08/11). Resolved Now back to baseline creatinine level #. Diarrhea: 2/2 covid-resolved. #. Rheumatoid arthritis: She has a history of rheumatoid arthritis.Prior treatment included prednisone, methotrexate, and NSAIDs and leflunomide. She has a history of ulcer/GI bleed Per outpatient documentation: Past treatments: methotrexate (discontinued 10/05 due to persistent thrombocytopenia), NSAIDs caused GIB, Arava stopped due to diarrhea; Enbrel was stopped due to anemia and thrombocytopenia Did not see any steroid on recent med list on [facility] #. Restless leg syndrome: Continue Mirapex per home regimen. #. DVT prophylaxis: Lovenox Conditional code-DO NOT INTUBATE, CPR okay Disposition-Plan for rehab once oxygen is weaned further Admission and Anticipated Discharge Date Admission Date: August 11, 2021 Subjective 71-year-old woman with history of hypertension, rheumatoid arthritis, GERD, prediabetes, chronic GI bleed who presented with 2-week history of productive cough, subjective fevers, nausea, anorexia, loose stools and muscle ache. Being managed for acute hypoxic respiratory failure due to COVID-19 pneumonia. Patient seen and examined today. Continues to report cough and shortness of breath especially with activity. Reports weakness. Reported poor sleep last night Reported some epistaxis and sore throat this morning Denies any other complaints at this time Review of Systems Constitutional: + fatigue Ear, Nose, Mouth, Throat: + epistaxis and + sore throat Respiratory: + cough and + dyspnea on exertion Gastrointestinal: no abdominal pain, no nausea, no vomiting and no di arrhea/loose stools Genitourinary: no dysuria, no urinary frequency and no urinary urgency Neurologic: + generalized weakness; no dizziness and no headache(s) Psychiatric: no depression and no anxiety Physical Exam Constitutional: + well hydrated and + obese; no acute distress Eyes: PERRL, conjunctivae normal, anicteric sclerae ENMT: external ear and nose normal, oropharynx normal Nasal cannula Respiratory: Not in respiratory distress, on 4 L/min, diminished breath sounds globally Cardiovascular: RRR, no murmur, no edema Gastrointestinal (Abdomen): normal bowel sounds, soft, nontender, no hepatosplenomegaly Musculoskeletal: no cyanosis or clubbing, extremities motor strength 5/5 Neurologic: PERRL, EOMI, accommodation nl, no face palsy, no dysarthria Psychiatric: A+Ox3, euthymic affect Results & Data Results & Data ([facility]) Vital Signs (Past 12 Hours) Vital Signs Temp Pulse Pulse Pulse Resp BP BP 08/28/21 11:12 67 08/28/21 10:41 36.8 C 79 19 130/78 08/28/21 07:17 36.8 C 64 18 111/77 08/28/21 05:11 87 08/28/21 03:24 36.5 C 69 18 121/73 Pulse Ox 08/28/21 11:12 08/28/21 10:41 90 08/28/21 07:17 99 08/28/21 05:11 08/28/21 03:24 96 Laboratory Results Abnormal lab results 08/27/21 08/27/21 08/28/21 Range/Units 16:38 20:34 07:07 MCHC 31.3 L (32-36) g/dL RDW Std Deviation 67.4 H (36.4-46.3) fL RDW Coeff of Jagjit 19.9 H (11.5-14.5) % BUN (7-18) mg/dl BUN/Creatinine Ratio (10-20) POC Glucose 170 H 205 H (70-99) mg/dl 08/28/21 08/28/21 Range/Units 07:08 11:41 MCHC (32-36) g/dL RDW Std Deviation (36.4-46.3) fL RDW Coeff of Jagjit (11.5-14.5) % BUN 36 H (7-18) mg/dl BUN/Creatinine Ratio 43.5 H (10-20) POC Glucose 105 H (70-99) mg/dl
[2021-08-28] MEDS ORDERED: MELATONIN 3 MG TAB PO PRN (14:56)
[2021-08-28] MEDS ORDERED: FUROSEMIDE INJ 20 MG/2 ML VIAL IV ONE (15:30)
[2021-08-28] MEDS: ENOXAPARIN INJ 40 MG/0.4 ML SYR SQ SCH (16:06)
[2021-08-28] MEDS: traZODone HCL 100 MG TAB PO SCH (21:36)
[2021-08-29] MEDS: traZODone HCL 50 MG TAB PO SCH (07:23)
[2021-08-29 08:23] LABS: Hematocrit (blood only) 41.2 % (37-47); Hemoglobin 12.7 g/dL (12.0-16.0); Mean Corpuscular Hemoglobin 28.5 pg (25-34); Mean Corpuscular Hgb Conc 30.8 g/dL (32-36); Mean Corpuscular Volume 92.6 fL (80-100); Mean Platelet Volume 9.8 fL (7.4-10.4); Platelet Count 167 K/uL (130-400); RDW Coefficient of Variation 19.7 % (11.5-14.5); RDW Standard Deviation 66.2 fL (36.4-46.3); Red Blood Count 4.45 M/uL (4.2-5.4); White Blood Count 6.65 K/uL (4.8-10.8)
[2021-08-29] MEDS: PRAMIPEXOLE DIHYDROCHLO 0.5 MG TAB PO SCH ×3 (08:28→21:02)
[2021-08-29] MEDS: BENZONATATE 100 MG CAPSULE PO SCH ×3 (08:28→21:02)
[2021-08-29] MEDS: GABAPENTIN 400 MG CAP PO SCH ×4 (08:28→21:03)
[2021-08-29] MEDS: INSULIN ASPART 100 UNITS/ML 3 ML PEN SC SCH (08:29)
[2021-08-29] MEDS: FERROUS SULFATE 325 MG TAB PO SCH (08:29)
[2021-08-29 08:51] LABS: BUN Creatinine Ratio 47.8 (10-20); Calcium 8.6 mg/dl (8.5-10.1); Creatinine Clr Calc Pharmacy 64.8 ml/min; Est GFR (African American) 93.8 ml/min; Est GFR (Non-African American) 80.9 ml/min; Potassium 3.9 mmol/L (3.5-5.1)
--- NOTE | 2021-08-29 11:17 | Hospitalist Progress Note ---
Date of Service August 29, 2021 Assessment & Plan (1) Acute respiratory failure due to severe acute respiratory syndrome c oronavirus 2 (SARS-CoV-2) infection: (2) Steroid-induced diabetes: Plan: #. Acute respiratory failure due to severe acute respiratory syndrome coronavirus 2 (SARS-CoV-2) infection: #. Pneumonia due to COVID-19 virus: Unvaccinated patient with progressed need for oxygen supplementation She is a DO NOT INTUBATE but is okay with CPR. Cont to prone as often as able. Completed remdesivir on 08/16. Decadron was briefly held due to ?steroid psychosis but was restarted at smaller dose. Completed on 08/27 Continue to encourage proning and supportive care. Continue incentive spirometry Oxygen requirement is donw from 6l/min yesterday AM to 2l/min now Gave lasix yesterday Will give another dose of lasix 20mg iv today #. Steroid-induced diabetes: Hypoglycemic this AM Likely since patient has completed steroid Stop insulin #. Weakness: 2/2 covid. PT/OT CM working on rehab #. KATHRYN (acute kidney injury): Creatinine initially 1.7 on admission disease (08/11). Resolved Now back to baseline creatinine level #. Diarrhea: 2/ covid-resolved. #. Rheumatoid arthritis: She has a history of rheumatoid arthritis.Prior treatment included prednisone, methotrexate, and NSAIDs and leflunomide. She has a history of ulcer/GI bleed Per outpatient documentation: Past treatments: methotrexate (discontinued 10/05/17 due to persistent thrombocytopenia), NSAIDs caused GIB, Arava stopped due to diarrhea; Enbrel was stopped due to anemia and thrombocytopenia Did not see any steroid on recent med list on [facility] #. Restless leg syndrome: Continue Mirapex per home regimen. #. DVT prophylaxis: Lovenox Conditional code-DO NOT INTUBATE, CPR okay Disposition-Plan for rehab Possible dc tomorrow Admission and Anticipated Discharge Date Admission Date: August 11, 2021 Subjective 71-year-old woman with history of hypertension, rheumatoid arthritis, GERD, prediabetes, chronic GI bleed who presented with 2-week history of productive cough, subjective fevers, nausea, anorexia, loose stools and muscle ache. Being managed for acute hypoxic respiratory failure due to COVID-19 pneumonia. Patient seen and examined this morning Reports significant improvement in cough, exertional dyspnea and weakness today Denies any other complaints at this time Review of Systems Constitutional: + fatigue Ear, Nose, Mouth, Throat: + sore throat; no epistaxis Respiratory: + cough and + dyspnea on exertion Gastrointestinal: no abdominal pain, no nausea, no vomiting and no diarrhea/loose stools Genitourinary: no dysuria, no urinary frequency and no urinary urgency Neurologic: + generalized weakness; no dizziness and no headache(s) Psychiatric: no depression and no anxiety Physical Exam Constitutional: + well hydrated and + obese; no acute distress Eyes: PERRL, conjunctivae normal, anicteric sclerae ENMT: external ear and nose normal, oropharynx normal Respiratory: Currently on 2l/min nasal oxygen, no respiratory distress, diminished breath sounds Cardiovascular: RRR, no murmur, no edema Gastrointestinal (Abdomen): normal bowel sounds, soft, nontender, no hepatosplenomegaly Musculoskeletal: no cyanosis or clubbing, extremities motor strength 5/5 Neurologic: PERRL, EOMI, accommodation nl, no face palsy, no dysarthria Psychiatric: A+Ox3, euthymic affect Results & Data Results & Data ([facility]) Vital Signs (Past 12 Hours) Vital Signs Temp Pulse Pulse Resp BP BP Pulse Ox 08/29/21 11:15 36.6 C 99 H 19 102/74 91 08/29/21 07:43 36.5 C 80 19 113/66 91 08/29/21 03:26 36.4 C L 66 18 127/71 93 08/28/21 23:21 36.9 C 68 20 124/64 95 Laboratory Results Abnormal lab results 08/28/21 08/28/21 08/29/21 Range/Units 16:38 20:28 07:46 MCHC (32-36) g/dL RDW Std Deviation (36.4-46.3) fL RDW Coeff of Jagjit (11.5-14.5) % BUN (7-18) mg/dl BUN/Creatinine Ratio (10-20) POC Glucose 132 H 114 H 64 L* (70-99) mg/dl 08/29/21 08/29/21 08/29/21 Range/Units 07:48 07:56 07:56 MCHC 30.8 L (32-36) g/dL RDW Std Deviation 66.2 H (36.4-46.3) fL RDW Coeff of Jagjit 19.7 H (11.5-14.5) % BUN 35 H (7-18) mg/dl BUN/Creatinine Ratio 47.8 H (10-20) POC Glucose 64 L* (70-99) mg/dl 08/29/21 08/29/21 Range/Units 08:16 12:04 MCHC (32-36) g/dL RDW Std Deviation (36.4-46.3) fL RDW Coeff of Jagjit (11.5-14.5) % BUN (7-18) mg/dl BUN/Creatinine Ratio (10-20) POC Glucose 112 H 108 H (70-99) mg/dl
[2021-08-29] MEDS ORDERED: FUROSEMIDE INJ 20 MG/2 ML VIAL IV ONE ×2 (13:16→15:50)
--- NOTE | 2021-08-29 14:35 | Pharmacy Report ---
Pharmacy Glycemic Sign Off Nt - Date of Service August 29, 2021 - Assessment & Plan ASSESSMENT: * Pharmacy was consulted by Dr Mendoza on 08/26 for glycemic control and to write orders per [facility] inpatient glycemic control protocol. * Major changes made by pharmacy to antidiabetic regimen include: * adding insulin while on steroids * Patient no longer on steroids, BSGs much improved and no insulin needed today thus far * Do not anticipate further changes in patient status that would quickly deteriorate glycemic control (i.e. patient to be NPO for upcoming procedure, steroids tapering, starting tube feedings, etc). * Please see recommendations for outpatient antidiabetic regimen below. PLAN FOR INPATIENT GLYCEMIC CONTROL: No changes needed to current regimen. * No basal warranted * Continue NovoLog per scale ACHS/Q6hrs while NPO * Goal range = 120-150 mg/dl * CF = 30 mg/dl/unit * CR = NONE * Pharmacy is signing off of glycemic consult and will no longer be making adjustments to inpatient regimen. Please feel free to re-consult if needed. Thank you.
[2021-08-29] MEDS: ENOXAPARIN INJ 40 MG/0.4 ML SYR SQ SCH (15:59)
[2021-08-29] MEDS: traZODone HCL 100 MG TAB PO SCH (21:02)
[2021-08-30 07:18] LABS: Hematocrit (blood only) 39.7 % (37-47); Hemoglobin 12.3 g/dL (12.0-16.0); Mean Corpuscular Hemoglobin 28.5 pg (25-34); Mean Corpuscular Volume 91.9 fL (80-100); Mean Platelet Volume 9.8 fL (7.4-10.4); Nucleated RBC # (auto) 0.02 K/uL (0-0); Nucleated RBC % (auto) 0.3 %; Platelet Count 160 K/uL (130-400); RDW Coefficient of Variation 19.5 % (11.5-14.5); RDW Standard Deviation 66.5 fL (36.4-46.3); Red Blood Count 4.32 M/uL (4.2-5.4); White Blood Count 5.54 K/uL (4.8-10.8)
[2021-08-30 07:35] LABS: BUN Creatinine Ratio 30.5 (10-20); Calcium 8.3 mg/dl (8.5-10.1); Est GFR (African American) 80.5 ml/min; Est GFR (Non-African American) 69.4 ml/min
[2021-08-30] MEDS: BENZONATATE 100 MG CAPSULE PO SCH ×3 (08:08→21:11)
[2021-08-30] MEDS: FERROUS SULFATE 325 MG TAB PO SCH (08:08)
[2021-08-30] MEDS: PRAMIPEXOLE DIHYDROCHLO 0.5 MG TAB PO SCH ×3 (08:08→21:11)
[2021-08-30] MEDS: GABAPENTIN 400 MG CAP PO SCH ×4 (08:08→21:11)
--- NOTE | 2021-08-30 12:26 | Internal Med Progress Note ---
Date of Service August 30, 2021 Assessment & Plan (1) Acute respiratory failure due to severe acute respiratory syndrome c oronavirus 2 (SARS-CoV-2) infection: (2) Steroid-induced diabetes: Plan: #. Acute respiratory failure due to severe acute respiratory syndrome coronavirus 2 (SARS-CoV-2) infection: #. Pneumonia due to COVID-19 virus: Unvaccinated patient with progressed need for oxygen supplementation She is a DO NOT INTUBATE but is okay with CPR. Cont to prone as often as able. Completed remdesivir on 08/16. Decadron was briefly held due to ?steroid psychosis but was restarted at smaller dose. Completed on 08/27 Continue to encourage proning and supportive care. Continue incentive spirometry Oxygen requirement continues to improve Will give another dose of lasix iv 20 today Continue to wean down #. Steroid-induced diabetes: Hypoglycemic yesterday Likely since patient has completed steroid Insulin was stopped. Blood glucose has been controlled #. Weakness: 2/2 covid. PT/OT CM working on rehab #. KATHRYN (acute kidney injury): Creatinine initially 1.7 on admission disease (08/11). Resolved Now back to baseline creatinine level #. Diarrhea: 2/ covid-resolved. #. Rheumatoid arthritis: She has a history of rheumatoid arthritis.Prior treatment included prednisone, methotrexate, and NSAIDs and leflunomide. She has a history of ulcer/GI bleed Per outpatient documentation: Past treatments: methotrexate (discontinued 10/05/17 due to persistent thrombocytopenia), NSAIDs caused GIB, Arava stopped due to diarrhea; Enbrel was stopped due to anemia and thrombocytopenia Patient reported not on prednisone chronically #. Restless leg syndrome: Continue Mirapex per home regimen. #. DVT prophylaxis: Lovenox Conditional code-DO NOT INTUBATE, CPR okay Disposition-Patient stable for dc. CM working on placement Admission and Anticipated Discharge Date Admission Date: August 11, 2021 Subjective 71-year-old woman with history of hypertension, rheumatoid arthritis, GERD, prediabetes, chronic GI bleed who presented with 2-week history of productive cough, subjective fevers, nausea, anorexia, loose stools and muscle ache. Being managed for acute hypoxic respiratory failure due to COVID-19 pneumonia. Patient seen and examined today Reports continuing improvement in cough, exertional dyspnea and weakness today Denies any other complaints at this time Review of Systems Constitutional: + fatigue (improving) Ear, Nose, Mouth, Throat: no epistaxis and no sore throat Respiratory: + cough and + dyspnea on exertion Gastrointestinal: no abdominal pain, no nausea, no vomiting and no diarrhea/loose stools Genitourinary: no dysuria, no urinary frequency and no urinary urgency Neurologic: + generalized weakness; no dizziness and no headache(s) Psychiatric: no depression and no anxiety Physical Exam Constitutional: + well hydrated and + obese; no acute distress Eyes: PERRL, conjunctivae normal, anicteric sclerae ENMT: external ear and nose normal, oropharynx normal Respiratory: Not in respiratory distress, on 2 L nasal cannula, diminished breath sounds bilaterally no crackles Cardiovascular: RRR, no murmur, no edema Gastrointestinal (Abdomen): normal bowel sounds, soft, nontender, no hepatosplenomegaly Musculoskeletal: no cyanosis or clubbing, extremities motor strength 5/5 Neurologic: PERRL, EOMI, accommodation nl, no face palsy, no dysarthria Psychiatric: A+Ox3, euthymic affect Results & Data ([facility] [place]) Vital Signs (Past 12 Hours) Vital Signs Temp Pulse Pulse Resp BP Pulse Ox 08/30/21 11:45 36.6 C 84 20 117/62 90 08/30/21 08:01 84 08/30/21 07:34 37.3 C 91 H 19 112/70 92 08/30/21 04:09 119/71 08/30/21 04:00 37.2 C 94 H 18 99/62 L 92 08/30/21 03:48 91 H Laboratory Results Abnormal lab results 08/29/21 08/29/21 08/30/21 Range/Units 16:54 20:34 06:46 MCHC 31.0 L (32-36) g/dL RDW Std Deviation 66.5 H (36.4-46.3) fL RDW Coeff of Jagjit 19.5 H (11.5-14.5) % Absolute Nucleated RBC 0.02 H (0-0) K/uL Anion Gap (3-11) BUN (7-18) mg/dl BUN/Creatinine Ratio (10-20) Glucose (70-99) mg/dl POC Glucose 116 H 148 H (70-99) mg/dl Calcium (8.5-10.1) mg/dl 08/30/21 08/30/21 Range/Units 06:46 11:42 MCHC (32-36) g/dL RDW Std Deviation (36.4-46.3) fL RDW Coeff of Jagjit (11.5-14.5) % Absolute Nucleated RBC (0-0) K/uL Anion Gap 2.0 L (3-11) BUN 26 H (7-18) mg/dl BUN/Creatinine Ratio 30.5 H (10-20) Glucose 104 H (70-99) mg/dl POC Glucose 141 H (70-99) mg/dl Calcium 8.3 L (8.5-10.1) mg/dl
[2021-08-30] MEDS: ENOXAPARIN INJ 40 MG/0.4 ML SYR SQ SCH (15:42)
[2021-08-30] MEDS ORDERED: FUROSEMIDE INJ 20 MG/2 ML VIAL IV ONE (15:53)
[2021-08-30] MEDS: traZODone HCL 100 MG TAB PO SCH (21:11)
[2021-08-31 06:54] LABS: Hematocrit (blood only) 40.7 % (37-47); Hemoglobin 12.8 g/dL (12.0-16.0); Mean Corpuscular Hemoglobin 28.8 pg (25-34); Mean Corpuscular Hgb Conc 31.4 g/dL (32-36); Mean Corpuscular Volume 91.7 fL (80-100); Platelet Count 156 K/uL (130-400); RDW Coefficient of Variation 19.1 % (11.5-14.5); RDW Standard Deviation 64.7 fL (36.4-46.3); Red Blood Count 4.44 M/uL (4.2-5.4); White Blood Count 5.32 K/uL (4.8-10.8)
[2021-08-31 07:25] LABS: BUN Creatinine Ratio 26.1 (10-20); Calcium 8.4 mg/dl (8.5-10.1); Creatinine Clr Calc Pharmacy 54.6 ml/min; Est GFR (African American) 80.5 ml/min; Est GFR (Non-African American) 69.4 ml/min; Potassium 3.7 mmol/L (3.5-5.1)
[2021-08-31] MEDS: BENZONATATE 100 MG CAPSULE PO SCH ×3 (08:45→20:53)
[2021-08-31] MEDS: FERROUS SULFATE 325 MG TAB PO SCH (08:45)
[2021-08-31] MEDS: PRAMIPEXOLE DIHYDROCHLO 0.5 MG TAB PO SCH ×3 (08:46→20:54)
[2021-08-31] MEDS: GABAPENTIN 400 MG CAP PO SCH ×4 (08:46→20:53)
--- NOTE | 2021-08-31 11:45 | Hospitalist Progress Note ---
Date of Service August 31, 2021 Assessment & Plan (1) Acute respiratory failure due to severe acute respiratory syndrome c oronavirus 2 (SARS-CoV-2) infection: (2) Steroid-induced diabetes: Plan: #. Acute respiratory failure due to severe acute respiratory syndrome coronavirus 2 (SARS-CoV-2) infection: #. Pneumonia due to COVID-19 virus: Unvaccinated patient with progressed need for oxygen supplementation She is a DO NOT INTUBATE but is okay with CPR. Cont to prone as often as able. Completed remdesivir on 08/16. Decadron was briefly held due to ?steroid psychosis but was restarted at smaller dose. Completed on 08/27 Continue to encourage proning and supportive care. Continue incentive spirometry Will give another dose of lasix iv 20 today Continue to wean down as tolerated #. Steroid-induced diabetes: Hypoglycemic some days ago Likely since patient has completed steroid Insulin was stopped. Blood glucose has been controlled #. Weakness: 2/2 covid. CM awaiting authorization for discharge to SNF #. KATHRYN (acute kidney injury): Creatinine initially 1.7 on admission disease (08/11). Resolved Now back to baseline creatinine level #. Diarrhea: 2/2 covid-resolved. #. Rheumatoid arthritis: She has a history of rheumatoid arthritis.Prior treatment included prednisone, methotrexate, and NSAIDs and leflunomide. She has a history of ulcer/GI bleed Per outpatient documentation: Past treatments: methotrexate (discontinued 10/05/17 due to persistent thrombocytopenia), NSAIDs caused GIB, Arava stopped due to diarrhea; Enbrel was stopped due to anemia and thrombocytopenia Patient reported not on prednisone chronically #. Restless leg syndrome: Continue Mirapex per home regimen. #. DVT prophylaxis: Lovenox Conditional code-DO NOT INTUBATE, CPR okay Disposition-Patient stable for dc. CM working on placement Admission and Anticipated Discharge Date Admission Date: August 11, 2021 Subjective 71-year-old woman with history of hypertension, rheumatoid arthritis, GERD, prediabetes, chronic GI bleed who presented with 2-week history of productive cough, subjective fevers, nausea, anorexia, loose stools and muscle ache. Being managed for acute hypoxic respiratory failure due to COVID-19 pneumonia. Patient seen and examined this morning Reports continuing improvement in cough, exertional dyspnea and weakness today Denies any other complaints at this time Review of Systems Constitutional: + fatigue (improving) Ear, Nose, Mouth, Throat: no epistaxis and no sore throat Respiratory: + cough and + dyspnea on exertion Gastrointestinal: no abdominal pain, no nausea, no vomiting and no diarrhea/loose stools Genitourinary: no dysuria, no urinary frequency and no urinary urgency Neurologic: no dizziness and no headache(s) Psychiatric: no depression and no anxiety Physical Exam Constitutional: + well hydrated and + obese; no acute distress Eyes: PERRL, conjunctivae normal, anicteric sclerae ENMT: external ear and nose normal, oropharynx normal Respiratory: Not in resp distress, on 2l/min nasal cannula, diminished breath sounds lung bases, no crackles Cardiovascular: RRR, no murmur, no edema Gastrointestinal (Abdomen): normal bowel sounds, soft, nontender, no hepatosplenomegaly Musculoskeletal: no cyanosis or clubbing, extremities motor strength 5/5 Neurologic: PERRL, EOMI, accommodation nl, no face palsy, no dysarthria Psychiatric: A+Ox3, euthymic affect Results & Data Results & Data ([facility]) Vital Signs (Past 12 Hours) Vital Signs Temp Pulse Pulse Pulse Resp BP BP 08/31/21 07:42 37.6 C H 105 H 20 97/69 L 08/31/21 07:34 111 H 08/31/21 04:09 37.5 C 107 H 20 117/69 08/30/21 23:50 92 H Pulse Ox 08/31/21 07:42 93 08/31/21 07:34 08/31/21 04:09 93 08/30/21 23:50 Laboratory Results Abnormal lab results 08/30/21 08/30/21 08/31/21 Range/Units 17:00 20:29 06:27 MCHC 31.4 L (32-36) g/dL RDW Std Deviation 64.7 H (36.4-46.3) fL RDW Coeff of Jagjit 19.1 H (11.5-14.5) % Sodium (136-145) mmol/L BUN (7-18) mg/dl BUN/Creatinine Ratio (10-20) Glucose (70-99) mg/dl POC Glucose 114 H 178 H (70-99) mg/dl Calcium (8.5-10.1) mg/dl 10/08/31/21 08/31/21 Range/Units 06:27 08:15 12:04 MCHC (32-36) g/dL RDW Std Deviation (36.4-46.3) fL RDW Coeff of Jagjit (11.5-14.5) % Sodium 135 L (136-145) mmol/L BUN 22 H (7-18) mg/dl BUN/Creatinine Ratio 26.1 H (10-20) Glucose 117 H (70-99) mg/dl POC Glucose 104 H 117 H (70-99) mg/dl Calcium 8.4 L (8.5-10.1) mg/dl
[2021-08-31] MEDS ORDERED: FUROSEMIDE INJ 20 MG/2 ML VIAL IV ONE (13:29)
[2021-08-31] MEDS: ENOXAPARIN INJ 40 MG/0.4 ML SYR SQ SCH (16:50)
[2021-08-31] MEDS: traZODone HCL 100 MG TAB PO SCH ×2 (20:53→21:21)
[2021-09-01 07:29] LABS: BUN Creatinine Ratio 28.2 (10-20); Calcium 8.3 mg/dl (8.5-10.1); Creatinine Clr Calc Pharmacy 56.6 ml/min; Est GFR (African American) 84.1 ml/min; Est GFR (Non-African American) 72.6 ml/min; Magnesium 2.4 mg/dl (1.8-2.4); Potassium 3.3 mmol/L (3.5-5.1)
[2021-09-01 07:30] LABS: Phosphorus 2.8 mg/dl (2.5-4.9)
[2021-09-01] MEDS: BENZONATATE 100 MG CAPSULE PO SCH ×2 (08:42→14:12)
[2021-09-01] MEDS: PRAMIPEXOLE DIHYDROCHLO 0.5 MG TAB PO SCH ×2 (08:43→14:12)
[2021-09-01] MEDS: FERROUS SULFATE 325 MG TAB PO SCH (08:43)
[2021-09-01] MEDS: GABAPENTIN 400 MG CAP PO SCH ×2 (08:43→14:12)
--- NOTE | 2021-09-01 11:46 | Hospitalist Progress Note ---
Date of Service September 01, 2021 Assessment & Plan Admission and Anticipated Discharge Date Admission Date: August 11, 2021 Results & Data Results & Data ([facility]) Vital Signs (Past 12 Hours) Vital Signs Temp Pulse Pulse Resp BP Pulse Ox 09/01/21 11:26 94 09/01/21 11:23 37 C 89 20 115/69 09/01/21 08:00 83 09/01/21 07:49 36.8 C 83 18 108/73 93 09/01/21 03:52 36.8 C 86 18 120/72 91
[2021-09-01] MEDS ORDERED: POTASSIUM CHLORIDE CRTAB 20 MEQ TABCR PO STA (14:00)
--- NOTE | 2021-09-01 14:01 | Discharge Summary ---
Date of Service September 01, 2021 Admission HPI Per Admitting Provider History obtained from patient and records. Medical history significant for hypertension, rheumatoid arthritis, GERD, prediabetes, chronic GI bleed as per records. Last confinement June 2016 for UGI B secondary to esophageal ulcer. Patient discharged on Protonix course. 2 weeks history of cough productive of clear sputum, subjective fever at home, nausea, poor appetite, muscle aches, loose stools without abdominal pain. Patient denies chest pain. Worsening shortness of breath. Decadron administered at the ER after positive COVID-19 test noted. Medical History as above Surgical History : ESWL, cholecystectomy Family History : Colon cancer, heart disease, hypertension, stroke Personal/Social history : Non-smoker, no EtOH intake, retired [employer] Admission Exam Per Admitting Provider GENERAL: Comfortable, slightly anxious, pleasant, looks younger for stated age, obese, no respiratory distress SKIN: Normal color, warm HEENT: Bespectacled, Tennant palpebral conjunctivae, no ptosis, dry buccal mucosa, nasal cannula in place NECK : Supple, short neck, no tenderness CHEST : Decreased breath sounds, occasional expiratory wheezes, no tenderness HEART : RRR, no obvious murmurs ABDOMEN: Some distention, nontender EXTREMITIES : Minimal LE swelling, no LE tenderness, no other conspicuous deformities noted NEUROLOGIC : Coherent, no facial asymmetry, no other gross focality Principal Diagnosis Acute respiratory failure with hypoxia Pneumonia due to COVID-19 Acute kidney injury Discharge Exam Constitutional + well hydrated and + obese; no acute distress Eyes PERRL, conjunctivae normal, anicteric sclerae ENMT external ear and nose normal, oropharynx normal Respiratory normal respiratory effort, lungs clear to auscultation Cardiovascular RRR, no murmur, no edema Gastrointestinal (Abdomen) normal bowel sounds, soft, nontender, no hepatosplenomegaly Musculoskeletal no cyanosis or clubbing, extremities motor strength 5/5 Neurologic PERRL, EOMI, accommodation nl, no face palsy, no dysarthria Psychiatric A+Ox3, euthymic affect Discharge Data Allergies Allergy/AdvReac Type Severity Reaction Status Date / Time Penicillins Allergy Intermediate RASH Verified 08/11/21 20:16 Sulfa (Sulfonamide Allergy Mild Unknown rxn Verified 08/11/21 20:16 Antibiotics) tofacitinib [From Xeljanz] Allergy Unknown Verified 08/11/21 20:46 flurbiprofen AdvReac Severe SYNCOPE Verified 08/11/21 20:16 Consultations 08/11/21 19:05 ED Decision to Admit Stat Hospital Course (1) Acute respiratory failure due to severe acute respiratory syndrome coronavirus 2 (SARS-CoV-2) infection: (2) Steroid-induced diabetes: #. Acute respiratory failure due to severe acute respiratory syndrome coronavirus 2 (SARS-CoV-2) infection: #. Pneumonia due to COVID-19 virus: Unvaccinated patient who presented with 2 weeks history of cough productive of clear sputum, subjective fever at home, nausea, poor appetite, muscle aches, loose stools without abdominal pain. Found to have COVID 19 pneumonia Required a lot of oxygen supplementation. Required HFNC Completed remdesivir on 08/16. Was treated with dexamethasone. This was briefly held due to possible steroid psychosis but was restarted at smaller dose. Completed on 08/27 Had a prolonged hospital course Was gradually weaned off oxygen. Had 2 steps today which showed no oxygen requirement at rest but requiring 3 L/min with activity. Patient had hyperglycemia with steroid which was managed with insulin sliding scale while inpatient but developed hypoglycemia after completing steroid therapy. This has resolved Patient was weak from illness and prolonged hospital course. Required physical therapy while inpatient. Patient wanted to go to [facility] for [facility]hab. However, insurance denied this. Patient wants to go home today. Discussed with window caser who will arrange home health and PT #. KATHRYN (acute kidney injury): Creatinine initially 1.7 on admission disease (08/11). Resolved Now back to baseline creatinine level #. Rheumatoid arthritis: She has a history of rheumatoid arthritis.Prior treatment included prednisone, methotrexate, and NSAIDs and leflunomide. She has a history of ulcer/GI bleed Per outpatient documentation: Past treatments: methotrexate (discontinued 10/05/17 due to persistent thrombocytopenia), NSAIDs caused GIB, Arava stopped due to diarrhea; Enbrel was stopped due to anemia and thrombocytopenia Patient reported not on prednisone chronically #. Restless leg syndrome: Continue Mirapex per home regimen. Total Time Total Time Spent Total Time Spent (In Minutes): 50 Total Time Includes: Examination of the Patient, Discharge Planning and Medication Reconciliation Discharge Plan Discharge Items Patient Disposition: Home - Home Health Services Reason For Visit: RESP FAILURE COVID Discharge Diagnosis: Acute respiratory failure with hypoxia COVID 19 pneumonia Activity: Resume your previous activity Non-emergency contact: Primary Care Provider Call non-emergency contact if: you have any medication questions and your symptoms worsen Follow-up/Referrals: Dillon Viera PA-C [Primary Care Provider] - Diet: Heart Healthy Addtl Attending Provider Instructions: Mrs Mireles You came to the hospital complaining of cough and shortness of breath. You were evaluated and managed for acute respiratory failure with hypoxia due to COVID 19 pneumonia. You required a lot of oxygen which was gradually weaned off. You are being discharged home. You do not require oxygen at rest but you do need 3l/min of oxygen with activity. Please stop taking your lisinopril for now due to low blood pressure. Your Primary Doctor will reassess later. Please ensure follow up with your Primary Doctor. It was a pleasure taking. Pending Studies at Discharge: No Stand-Alone Forms: [facility] Medications and DC Order Prescriptions: New guaifenesin 100 mg/5 mL liquid 200 mg PO Q6H PRN (Reason: cough) Qty: 1500 RF: 0 Continued trazodone 50 mg Tablet 50 mg PO HS RF: 0 ondansetron HCl [Zofran] 4 mg Tablet 4 mg PO Q8 PRN (Reason: Nausea) RF: 0 alendronate [Fosamax] 70 mg tablet 70 mg PO WK RF: 0 calcium carbonate-vitamin D3 [Calcium 500 + D] 500 mg(1,250mg) -200 unit Tablet 1 tab PO BID RF: 0 gabapentin 400 mg capsule 400 mg PO QID RF: 0 pramipexole 0.5 mg tablet 0.5 mg PO TID RF: 0 ferrous sulfate [iron] 325 mg (65 mg iron) Tablet 325 mg PO DAILY RF: 0 Discontinued lisinopril 5 mg Tablet 5 mg PO DAILY RF: 0 Discharge Orders: Discharge Order (Routine); Ordered 09/01/21 Ordered By: Dorcas Meza/Other Patient Handouts: A1C, 5 Steps for Eating Healthier, Exercise: Why Fitness Matters Admission Data Admit Date/Time: 08/11/21 21:19 Attending Provider: Drocas Freeman I. Admit Provider: Maulik Godinez Primary Care Provider: Dillon Viera Other Providers: Maulik Godinez ; [facility] ; Stefanie Mendoza ; [facility] ; [facility] ; [facility] Other Interventions: Discharge Summary Assessment (RN) Last Done: 09/01/21 17:03
[2021-09-01 15:25] VITALS: BP 106/91; PULSE 104; TEMP 99.5
[2021-09-01 15:26] VITALS: O2SAT 93
[2021-09-01] MEDS: ENOXAPARIN INJ 40 MG/0.4 ML SYR SQ SCH (17:15)
== END 2021-09-01 18:43 | disposition home health service (06) | DRG 177 ==
LOC: ED 14:46 → 2S 21:19 → SUATTDRO 21:19 → 2S 23:30

== ENCOUNTER 2023-03-18 13:58 | Inpatient (IN) ==
[2023-03-18] MEDS ORDERED: SODIUM CHLORIDE 0.9% 250 ML IV PRN (14:13)
--- NOTE | 2023-03-18 14:22 | Emergency Department Note ---
Impression & Plan Fall, Symptomatic anemia, Renal colic, Hydronephrosis ED Provider Note NAME: CARTER SOSA AGE: 72 SEX: F : 1950 ARRIVES VIA: Walk-In INFORMANT: Patient ED PROVIDER(S): Chaitanya Cano DO CHIEF COMPLAINT: low hgb HPI: Patient is a 72-year-old female who presents to the ER with a past medical history of hypertension, anemia, GI bleed, respiratory failure currently taking Eliquis for low hemoglobin. She notes over the past month she has been getting more chest pain and shortness of breath with exertion and feeling much more weak. She denies any headache or change in vision. She has been having some intermittent abdominal pain. No dysuria, urgency, or frequency. No other exacerbating or remitting factors. No black stools. No dark tarry stools. She had blood work done yesterday and notes that she believes her hemoglobin may be low. PAST MEDICAL HISTORY:See Below PAST SURGICAL HISTORY:See Below FAMILY HISTORY:See Below SOCIAL HISTORY:See Below HOME MEDICATIONS:See Below ALLERGIES:See Below VITALS:See Below PHYSICAL EXAMINATION: GENERAL: Sitting up in bed, alert, well appearing, well nourished, no distress, non-toxic EYE EXAM: normal conjunctiva. OROPHARYNX: no exudate, no erythema, lips, buccal mucosa, and tongue normal and mucous membranes are moist NECK: supple, no nuchal rigidity, no adenopathy, non-tender LUNGS: Clear to auscultation. Normal chest wall mechanics HEART: no murmurs, S1 normal and S2 normal ABDOMEN: abdomen soft, non-tender, normo-active bowel sounds, no masses, no rebound or guarding. UPPER EXTREMITIES: upper extremities are grossly normal. LOWER EXTREMITIES: No pitting edema. NEURO EXAM: Normal sensorium, cranial nerves II-XII grossly intact, normal speech, no gross weakness of arms, no gross weakness of legs. MEDICAL DECISION MAKING: Patient is a 72-year-old female who presents ER for low hemoglobin feeling weak rundown and having chest pain and shortness of breath with exertion over the past month. She does have some intermittent abdominal pain as well. IV was established blood work was obtained. Labs show no significant leukocytosis. Hemoglobin 5.8. INR unremarkable. BMP along with LFTs bilirubin was unremarkable. Patient was typed and crossed and ordered 2 units PRBCs while in the ER. CT was eventually obtained and showed hydronephrosis with renal colic. I did give her a dose of Rocephin as we do not have a urine to confirm or disprove infection although she does not appear to be septic. She was discussed with the hospitalist admitted for further work-up. Triage Nursing notes reviewed. Limited review of prior medical records performed Vital Signs: reviewed and remarkable for no significant abnormalities Differential diagnosis: Differential diagnoses includes but is not limited to gastritis, peptic ulcer disease, GERD, gallbladder disease, pancreatitis, small bowel obstruction, appendicitis, diverticulitis, hernia, urinary tract infection, torsion, 32, perforation, trauma, infectious. ER treatment provided: See below Diagnostics interpreted by me include EKG and cardiac monitoring as listed below: -Cardiac Monitoring: An order was placed for continuous cardiac monitoring. The monitor shows a rate of 80 with sinus rhythm. -ECG: none -Laboratory studies:Interpreted by me as stated above in MDM and shown below. Imaging studies: Xrays: As interpreted by me:none CTs show: CT abdomen pelvis shows multiple stones in the ureter. Consultation(s): Discussed with [facility]ist for further evaluation management treatment Procedures:none Critical Care: I have personally spent 32 minutes of critical care time in the direct management of this patient. This includes bedside care, interpretation of diagnostic studies, and testing, discussion with consultants, patient, and family members, and other required patient management activities. This 32 minutes is in excess of all separately billable procedures. Past Med/Surg History Medical History (Updated 03/18/23 @ 19:30 by Chaitanya Cano DO) History of COVID-20 AUG 2021 - HOSPITALIZED [facility] RESIDUALS: STOMACH IRRITATION/IMPROVING & DECREASED BODY STRENGTH - IMPROVING History of kidney stones History of pulmonary embolus (PE) WHEN HOSPITALIZED FOR COVID...BLOODTHINNER RX'D...CONTINUES...F/U HEMATOLOGY [facility] JANUARY 27 Iron deficiency anemia Osteoporosis Peptic ulcer HX Restless leg syndrome Rheumatoid arthritis Surgical History History of colonoscopy History of endoscopy History of right cataract extraction Hx of cholecystectomy Hx of cystoscopy Hx of lithotripsy Family History Grandmother Family history of colon cancer Other Heart disease Hypertension Kidney disease Social History Smoking Status: Never smoker Second Hand Exposure: Yes; Do You Dip or Chew Tobacco: No; Hx Alcohol Use: No Hx Substance Use: No Preferred Language: Burmese Communication Ability: Effective Telephone Cleaner Required: No Beliefs That Will Affect Care: None Current Living Situation: Spouse Feels Safe at Home: Yes Assistive Devices: Glasses Allergies Allergies Allergy/AdvReac Type Severity Reaction Status Date / Time Penicillins Allergy Unknown RASH Verified 02/05/22 06:34 Sulfa (Sulfonamide Allergy Unknown Rash Verified 02/05/22 06:34 Antibiotics) methotrexate AdvReac Unknown Unknown Verified 02/05/22 06:34 MEDICATION FOR ARTHRITIS AdvReac Unknown MEDICATION Uncoded 02/05/22 06:34 INTERACTION, SEE NOTES BELOW - STOMACH ULCER Home Meds Home Medications Medication Instructions Recorded Confirmed alendronate 70 mg tablet (Fosamax) 70 mg PO WK 11/23/18 03/18/23 calcium carbonate 500 mg-vitamin 1 tab PO DAILY 11/23/18 03/18/23 D3 5 mcg (200 unit) tablet (Calcium 500 + D) trazodone 50 mg tablet 50 mg PO HS 11/23/18 03/18/23 ferrous sulfate 325 mg (65 mg 325 mg PO DAILY 08/11/21 03/18/23 iron) tablet (iron) pramipexole 0.5 mg tablet 0.5 mg PO TID PRN Restless Leg(S) 08/11/21 03/18/23 oxybutynin chloride 5 mg 5 mg PO DAILY 03/18/23 03/18/23 tablet,extended release 24 hr pantoprazole 40 mg tablet,delayed 40 mg PO DAILY 03/18/23 03/18/23 release Results & Data (ED) Vital Signs Vital Signs - 24 hr 03/18/23 14:04 03/18/23 15:43 03/18/23 16:45 Temperature 36.4 C L 36.7 C Temperature Source Temporal Artery Scan Oral Pulse Rate 97 H 82 96 H Respiratory Rate 18 18 Respiratory Effort / Characteristics Non-Labored Respiratory Depth Normal Blood Pressure 114/66 142/56 H Blood Pressure Mean 82 84 Pulse Oximetry 97 100 Oxygen Delivery Method Room Air Sepsis Recent Fever Within 48 Hours No Sepsis New/Unexplained Change in Mental Status No Sepsis Action Taken by Nursing No Action Required 03/18/23 16:53 Temperature 36.9 C Temperature Source Oral Pulse Rate 77 Respiratory Rate 12 Respiratory Effort / Characteristics Respiratory Depth Blood Pressure 145/59 H Blood Pressure Mean 87 Pulse Oximetry 100 Oxygen Delivery Method Sepsis Recent Fever Within 48 Hours Sepsis New/Unexplained Change in Mental Status Sepsis Action Taken by Nursing Laboratory Data 03/18/23 14:26 03/18/23 14:26 Lab Results 03/18/23 03/18/23 03/18/23 Range/Units 14:26 14:26 14:26 WBC 6.98 (4.8-10.8) K/ul RBC 3.21 L (4.20-5.40) M/uL Hgb 5.8 L* (12.0-16.0) g/dl Hct 22.3 L (37.0-47.0) % MCV 69.5 L (80.0-100.0) fL MCH 18.1 L (25.0-34.0) pg MCHC 26.0 L (32.0-36.0) g/dL RDW Std Deviation 49.9 H (36.4-46.3) fL RDW Coeff of Jagjit 20.1 H (11.5-14.5) % Plt Count 425 H (130-400) K/uL MPV 9.5 (9.4-12.4) fL Immature Gran % (Auto) 0.3 % Neut % (Auto) 56.3 % Lymph % (Auto) 24.1 % Taliaferro % (Auto) 14.3 % Eos % (Auto) 4.3 % Baso % (Auto) 0.7 % Neut # (Auto) 3.93 (1.40-6.50) K/uL Lymph # (Auto) 1.68 (1.2-3.4) K/uL Taliaferro # (Auto) 1.00 H (0.11-0.59) K/uL Eos # (Auto) 0.30 (0-0.50) K/uL Baso # (Auto) 0.05 (0-0.2) K/uL Immature Gran # (Auto) 0.02 (0.01-0.20) K/uL Absolute Nucleated RBC 0.04 (0-0.12) K/uL Nucleated RBC % (auto) 0.6 % Polychromasia 2+ Tear Drop Cells 1+ PT 11.0 (9.0-12.0) Seconds INR 1.0 (0.9-1.1) APTT 20.4 L (21.0-31.0) Seconds PTT Ratio 0.7 Sodium 140 (136-145) mmol/L Potassium 4.0 (3.5-5.1) mmol/L Chloride 111 H (98-107) mmol/L Carbon Dioxide 23 (21-32) mmol/L Anion Gap 6 (3-11) BUN 27 H (6-23) mg/dl Creatinine 1.17 (0.6-1.2) mg/dl Est Cr Clr Drug Dosing 44.8 ml/min Est GFR ( Amer) 53.5 ml/min Est GFR (Non-Af Amer) 46.2 ml/min BUN/Creatinine Ratio 23.1 H (10-20) Glucose 169 H (70-99(Fasting)) mg/dl Calcium 8.8 (8.6-10.3) mg/dl Iron 13 L (35-150) mcg/dl Transferrin 357 (200-360) mg/dl Ferritin 3.7 L (8-388) ng/ml Total Bilirubin 0.4 (0.2-1.0) mg/dl AST 13 (13-39) U/L ALT 14 (7-52) U/L Alkaline Phosphatase 95 (34-104) U/L Total Protein 6.6 (6.0-8.3) gm/dl Albumin 4.0 (3.4-5.0) gm/dl Globulin 2.6 (2.5-4.0) gm/dl Albumin/Globulin Ratio 1.5 (0.9-2) SARS-CoV-2, RNA, NAAT (NEGATIVE) Blood Type Blood Type Recheck Antibody Screen Crossmatch 03/18/23 03/18/23 03/18/23 Range/Units 14:26 14:26 15:43 WBC (4.8-10.8) K/ul RBC (4.20-5.40) M/uL Hgb (12.0-16.0) g/dl Hct (37.0-47.0) % MCV (80.0-100.0) fL MCH (25.0-34.0) pg MCHC (32.0-36.0) g/dL RDW Std Deviation (36.4-46.3) fL RDW Coeff of Jagjit (11.5-14.5) % Plt Count (130-400) K/uL MPV (9.4-12.4) fL Immature Gran % (Auto) % Neut % (Auto) % Lymph % (Auto) % Taliaferro % (Auto) % Eos % (Auto) % Baso % (Auto) % Neut # (Auto) (1.40-6.50) K/uL Lymph # (Auto) (1.2-3.4) K/uL Tal[place]ferro # (Auto) (0.11-0.59) K/uL Eos # (Auto) (0-0.50) K/uL Baso # (Auto) (0-0.2) K/uL Immature Gran # (Auto) (0.01-0.20) K/uL Absolute Nucleated RBC (0-0.12) K/uL Nucleated RBC % (auto) % Polychromasia Tear Drop Cells PT (9.0-12.0) Seconds INR (0.9-1.1) APTT (21.0-31.0) Seconds PTT Ratio Sodium (136-145) mmol/L Potassium (3.5-5.1) mmol/L Chloride (98-107) mmol/L Carbon Dioxide (21-32) mmol/L Anion Gap (3-11) BUN (6-23) mg/dl Creatinine (0.6-1.2) mg/dl Est Cr Clr Drug Dosing ml/min Est GFR ( Amer) ml/min Est GFR (Non-Af Amer) ml/min BUN/Creatinine Ratio (10-20) Glucose (70-99(Fasting)) mg/dl Calcium (8.6-10.3) mg/dl Iron (35-150) mcg/dl Transferrin (200-360) mg/dl Ferritin (8-388) ng/ml Total Bilirubin (0.2-1.0) mg/dl AST (13-39) U/L ALT (7-52) U/L Alkaline Phosphatase (34-104) U/L Total Protein (6.0-8.3) gm/dl Albumin (3.4-5.0) gm/dl Globulin (2.5-4.0) gm/dl Albumin/Globulin Ratio (0.9-2) SARS-CoV-2, RNA, NAAT NEGATIVE (NEGATIVE) Blood Type A Positive Blood Type Recheck A Positive Antibody Screen NEGATIVE Crossmatch See Detail Administered Medications Discontinued Medications Ioversol (Optiray 320 100ml) 88 ml IV ONCE ONE Stop: 03/18/23 16:51 Last Admin: 03/18/23 16:40 Dose: 88 ml Documented By: GURDEEP Pramipexole Dihydrochloride (Pramipexole Dihydrochlo 0.5 Mg Tab) 0.5 mg PO ONE ONE Stop: 03/18/23 17:34 Last Admin: 03/18/23 18:07 Dose: 0.5 mg Documented By: SUSY Imaging Data Radiologist's Impression: Abdomen/Pelvis CT 03/18/23 16:14 CT SCAN OF THE ABDOMEN AND PELVIS WITH IV CONTRAST CLINICAL HISTORY: Generalized abdominal pain. Anemia. COMPARISON STUDY: Abdominal CT dated 07/24/2019. TECHNIQUE: Following the IV administration of BRENDA cc of Optiray 320, CT scan of the abdomen and pelvis is performed from the lung bases to the proximal femora. Images are reviewed in the axial, sagittal, and coronal planes. IV contrast was administered without complication. A dose lowering technique was utilized adhering to the principles of ALARA. CT DOSE: 1019.06 mGy.cm FINDINGS: Lung bases: The heart is mildly enlarged and without pericardial effusion. The lung bases are clear noting bibasilar scarring/atelectasis. There is a moderate hiatal hernia. Liver: The contrast-enhanced liver is normal in size, contour, and attenuation. There is mild central intrahepatic biliary ductal dilatation. The hepatic veins and portal veins are patent. Gallbladder: Surgically absent noting clips in the gallbladder fossa. Spleen: Normal in size and attenuation. Pancreas: Unremarkable. Adrenal glands: Unremarkable. Kidneys: The contrast enhanced kidneys are normal in size and without hydronephrosis. There are at least 3 obstructing calculi in the distal right ureter seen on images #267, #271, and #290. The largest stone is seen at the left vesicoureteral junction and measures up to 6 mm. No stones are seen in the right ureter. An 18 mm calculus is seen in the right renal pelvis on image #110. There is urothelial thickening involving the right renal pelvis and surrounding inflammation. Mild hydronephrosis is seen bilaterally. The kidneys enhance symmetrically. Abdominal vasculature: The abdominal aorta is normal in course and caliber noti ng mild atherosclerotic calcification. Bowel: There is no bowel obstruction. A duodenal diverticulum is incidentally noted. The appendix is well-visualized and normal. Peritoneum: There is no intraperitoneal free air or abdominal ascites. There is a fat-containing umbilical hernia. Lymphadenopathy: None. Pelvic viscera: The bladder is normal as visualized. The endometrium appears thickened for age, measuring up to 15 mm. No adnexal lesion is seen. Skeletal structures: The skeletal structures are osteopenic. There is mild to moderate lumbosacral spondylosis. There are chronic compression deformities of T12, L2, L3, and L4. Sclerotic change is noted in the pubic symphysis. There are bilateral pars defects at L5. No lytic or blastic lesions are seen. There are c hronic/healed bilateral rib fractures. IMPRESSION: 1. There are at least 3 obstructing calculi in the distal left ureter which measure up to 6 mm. This causes mild left-sided hydronephrosis. 2. There is an 18 mm calculus in the right renal pelvis with mild right-sided hydronephrosis. There is associated urothelial thickening in the right renal pelvis with surrounding inflammation. Correlate with clinical findings and urinalysis for evidence of superimposed infection. 3. Moderate hiatal hernia. 4. The endometrium appears thickened for age measuring up to 15 mm. This is not well assessed by CT. Nonemergent pelvic ultrasound and gynecology evaluation is recommended. 5. Additional findings as above. ACT 112: Positive. There are findings on this exam that require communication between the performing entity and the patient following Patient Test Result Information Act ([place] Act 112) guidelines. Electronically signed by: Jamie Garcia M.D. 03/18/2023 4:59 PM Discharge Plan Visit Data Chief Complaint: Abnormal Labs/Diagnostic Testing Stated Complaint: LOW HEMOGLOBIN, ABNORMAL LABS, DR HAY ED Provider: Chaitanya Cano Discharge Problem: Fall, Symptomatic anemia, Renal colic, Hydronephrosis Forms Stand Alone Forms: My [facility] Prescriptions Prescriptions: No Action trazodone 50 mg Tablet 50 mg PO HS alendronate [Fosamax] 70 mg tablet 70 mg PO WK Patient Comments: thursday calcium carbonate-vitamin D3 [Calcium 500 + D] 500 mg(1,250mg) -200 unit Tablet 1 tab PO DAILY pramipexole 0.5 mg tablet 0.5 mg PO TID PRN (Reason: Restless Leg(S)) ferrous sulfate [iron] 325 mg (65 mg iron) Tablet 325 mg PO DAILY pantoprazole 40 mg tablet,delayed release (DR/EC) 40 mg PO DAILY oxybutynin chloride 5 mg tablet extended release 24hr 5 mg PO DAILY Referrals Referrals: Dillon Viera PA-C [Primary Care Provider] -
[2023-03-18 14:59] LABS: Bilirubin,Total 0.4 mg/dl (0.2-1.0); Calcium 8.8 mg/dl (8.6-10.3)
[2023-03-18 15:05] LABS: Albumin Globulin Ratio 1.5 (0.9-2); BUN Creatinine Ratio 23.1 (10-20); Creatinine Clr Calc Pharmacy 44.8 ml/min; Est GFR (African American) 53.5 ml/min; Est GFR (Non-African American) 46.2 ml/min; Globulin 2.6 gm/dl (2.5-4.0); Partial Thromboplastin Ratio 0.7; Partial Thromboplastin Time 20.4 Seconds (21.0-31.0); Total Protein 6.6 gm/dl (6.0-8.3)
[2023-03-18 15:34] LABS: Hematocrit (blood only) 22.3 % (37.0-47.0); Hemoglobin 5.8 g/dl (12.0-16.0); Mean Corpuscular Hemoglobin 18.1 pg (25.0-34.0); Mean Corpuscular Volume 69.5 fL (80.0-100.0); Mean Platelet Volume 9.5 fL (9.4-12.4); Nucleated RBC # (auto) 0.04 K/uL (0-0.12); Nucleated RBC % (auto) 0.6 %; Platelet Count 425 K/uL (130-400); RDW Coefficient of Variation 20.1 % (11.5-14.5); RDW Standard Deviation 49.9 fL (36.4-46.3); Red Blood Count 3.21 M/uL (4.20-5.40); White Blood Count 6.98 K/ul (4.8-10.8)
[2023-03-18 15:43] LABS: Basophils # (auto) 0.05 K/uL (0-0.2); Basophils % (auto) 0.7 %; Eosinophils % (auto) 4.3 %; Immature Granulocytes # (auto) 0.02 K/uL (0.01-0.20); Immature Granulocytes % (auto) 0.3 %; Lymphocytes # (auto) 1.68 K/uL (1.2-3.4); Lymphocytes % (auto) 24.1 %; Monocytes % (auto) 14.3 %; Neutrophils # (auto) 3.93 K/uL (1.40-6.50); Neutrophils % (auto) 56.3 %; Polychromasia 2+; Tear Drop Cells 1+
[2023-03-18] MEDS ORDERED: OPTIRAY 320 100ml IV ONE (16:50)
--- NOTE | 2023-03-18 16:58 | History & Physical Report ---
Date of Service March 18, 2023 Assessment & Plan (1) Acute on chronic anemia: (2) Iron deficiency anemia: Plan: Acute on chronic anemia History iron deficiency anemia Patient is 72 y/o F with PMH chronic iron deficiency anemia, H/O PE with COVID and was treated with Eliquis, rheumatoid arthritis presented to ER because of abnormal labs - Hgb: 5.7 on outpatient labs 03/17/23. Increased fatigue, generalized weakness, increased SOB x 1 month. No Eliquis since 01/2022. Denies NSAID use. Today in ER vitals stable. H/H: 5.8/, microcytic hypochromic anemia Outpatient chart review: Last received IV iron on 05/12/2022 History colonoscopy: 07/15/2018: Examined colon normal, internal hemorrhoids. History EGD 07/15/2018: LA grade B esophagitis in distal esophagus without bleeding. Medium size hiatal hernia without Sheldon erosions. Stomach appeared normal. Duodenal bulb and second portion of duodenum normal. History of bone marrow biopsy 08/24/2018: Prominent eosinophilia suspected myeloproliferative neoplasm. Had NexGen myeloid disorders profile that was ne gative In ER typed and crossed, 2 units PRBCs to be transfused In ER reported negative stool Hemoccult Obtain H&H after transfusion IV PPI twice daily. Hold home oral PPI N.p.o. midnight Iron studies added to ER labs and are pending GI consult CBC, BMP in a.m. (3) Restless leg syndrome: Plan: Continue Mirapex (4) Rheumatoid arthritis: Plan: History of RA After COVID-19 infection in 2020. Patient reports improvement of her RA symptoms and is no longer on Rituxan (5) Hypertension: Plan: Currently controlled. No longer on medication (6) Osteoporosis: Plan: Reports has not been taking Fosamax DVT Prophylaxis SCDs Full Code as per discussion with pt Follows with Dr Willi Laws for routine care Pt was seen and care coordinated with Dr Brambila. See addendum I spent a total of 82 minutes reviewing notes, outpatient records, labs, medication, coordinating, documenting and providing care for this patient excluding time spent in the performance of separately billed services. History of Present Illness Chief Complaint: Abnormal labs Primary Care Provider: Dillon Viera PA-C Patient is 72 y/o F with PMH chronic iron deficiency anemia, H/O PE with COVID and was treated with Eliquis, rheumatoid arthritis presented to ER because of abnormal labs. Patient reports has been having increased fatigue, generalized weakness, increased SOB for past month. She had outpatient labs drawn on 03/17/2023 with a hemoglobin of 5.7 and was referred to ER. Reports some nausea and intermittent vomiting. Reports since COVID-19 infection has been having intermittent nausea and abdominal pain. Previously had occasional abdominal pain, however past couple of weeks mid abdominal pain has become persistent. Patient states that she uses NSAIDs very rarely. Patient states since having COVID-19 her RA symptoms have resolved. Denies alcohol use. Has been off of Eliquis since approximately January 2022. History chronic iron deficiency anemia. Has received IV iron in the past, last received on 05/12/2022. Follows with Dr. Richards, hematology. Denies vaginal bleeding, melena, hematochezia, fever/chills, diaphoresis, hematemesis, diarrhea, constipation MEEKS, syncope, vision changes, neck pain, CP, palpitations, cough, sore throat, rhinorrhea, paresthesias, extremity edema, rashes, urinary symptoms. Per outpatient chart review: History colonoscopy: 07/15/2018: Examined colon normal, internal hemorrhoids. History EGD 07/15/2018: LA grade B esophagitis in distal esophagus without bleeding. Medium size hiatal hernia without Sheldon erosions. Stomach appeared normal. Duodenal bulb and second portion of duodenum normal. History of bone marrow biopsy 08/24/2018: Prominent eosinophilia suspected myeloproliferative neoplasm. Had NexGen myeloid disorders profile that was negative Allergies Allergy/AdvReac Type Severity Reaction Status Date / Time Penicillins Allergy Unknown RASH Verified 02/05/22 06:34 Sulfa (Sulfonamide Allergy Unknown Rash Verified 02/05/22 06:34 Antibiotics) methotrexate AdvReac Unknown Unknown Verified 02/05/22 06:34 MEDICATION FOR ARTHRITIS AdvReac Unknown MEDICATION Uncoded 02/05/22 06:34 INTERACTION, SEE NOTES BELOW - STOMACH ULCER Home Medications Medication Instructions Recorded Confirmed Type alendronate 70 mg tablet (Fosamax) 70 mg PO WK 11/23/18 03/18/23 History calcium carbonate 500 mg-vitamin 1 tab PO DAILY 11/23/18 03/18/23 History D3 5 mcg (200 unit) tablet (Calcium 500 + D) trazodone 50 mg tablet 50 mg PO HS 11/23/18 03/18/23 History ferrous sulfate 325 mg (65 mg 325 mg PO DAILY 08/11/21 03/18/23 History iron) tablet (iron) pramipexole 0.5 mg tablet 0.5 mg PO TID PRN Restless Leg(S) 08/11/21 03/18/23 History oxybutynin chloride 5 mg 5 mg PO DAILY 03/18/23 03/18/23 History tablet,extended release 24 hr pantoprazole 40 mg tablet,delayed 40 mg PO DAILY 03/18/23 03/18/23 History release Past Med/Surg History Medical History (Updated 03/18/23 @ 18:32 by Annel Fay PA-C) History of COVID-20 AUG 2021 - HOSPITALIZED [facility] RESIDUALS: STOMACH IRRITATION/IMPROVING & DECREASED BODY STRENGTH - IMPROVING History of kidney stones History of pulmonary embolus (PE) WHEN HOSPITALIZED FOR COVID...BLOODTHINNER RX'D...CONTINUES...F/U HEMATOLOGY [facility] JANUARY 27 Iron deficiency anemia Osteoporosis Peptic ulcer HX Restless leg syndrome Rheumatoid arthritis Surgical History History of colonoscopy History of endoscopy History of right cataract extraction Hx of cholecystectomy Hx of cystoscopy Hx of lithotripsy Family History Grandmother Family history of colon cancer Other Heart disease Hypertension Kidney disease Social History Smoking Status: Never smoker Second Hand Exposure: Yes; Do You Dip or Chew Tobacco: No; Hx Alcohol Use: No Hx Substance Use: No Preferred Language: Faroese Communication Ability: Effective Recycling Technician Required: No Beliefs That Will Affect Care: None Current Living Situation: Spouse Feels Safe at Home: Yes Assistive Devices: Glasses Review of Systems Review of Systems: All systems reviewed & are unremarkable except as noted in HPI & below Physical Exam Physical Exam: PE per Dr Brambila Results & Data Results & Data Vital Signs (Past 12 Hours) Vital Signs Temp Pulse Resp BP Pulse Ox O2 Del Method 03/18/23 16:53 36.9 C 77 12 145/59 H 100 03/18/23 16:45 36.7 C 96 H 18 142/56 H 100 03/18/23 15:43 82 03/18/23 14:04 36.4 C L 97 H 18 114/66 97 Room Air Laboratory Results Short CBC 03/18/23 Range/Units 14:26 WBC 6.98 (4.8-10.8) K/ul Hgb 5.8 L* (12.0-16.0) g/dl Hct 22.3 L (37.0-47.0) % Plt Count 425 H (130-400) K/uL BMP 03/18/23 14:26 Sodium 140 Potassium 4.0 Chloride 111 H Carbon Dioxide 23 BUN 27 H Creatinine 1.17 Glucose 169 H Calcium 8.8 Liver Function 03/18/23 Range/Units 14:26 Total Bilirubin 0.4 (0.2-1.0) mg/dl AST 13 (13-39) U/L ALT 14 (7-52) U/L Alkaline Phosphatase 95 (34-104) U/L Albumin 4.0 (3.4-5.0) gm/dl Diagnostic Findings Abdomen/Pelvis CT 03/18/23 16:14 CT SCAN OF THE ABDOMEN AND PELVIS WITH IV CONTRAST CLINICAL HISTORY: Generalized abdominal pain. Anemia. COMPARISON STUDY: Abdominal CT dated 07/24/2019. TECHNIQUE: Following the IV administration of BRENDA cc of Optiray 320, CT scan of the abdomen and pelvis is performed from the lung bases to the proximal femora. Images are reviewed in the axial, sagittal, and coronal planes. IV contrast was administered without complication. A dose lowering technique was utilized adhering to the principles of ALARA. CT DOSE: 1019.06 mGy.cm FINDINGS: Lung bases: The heart is mildly enlarged and without pericardial effusion. The lung bases are clear noting bibasilar scarring/atelectasis. There is a moderate hiatal hernia. Liver: The contrast-enhanced liver is normal in size, contour, and attenuation. There is mild central intrahepatic biliary ductal dilatation. The hepatic veins and portal veins are patent. Gallbladder: Surgically absent noting clips in the gallbladder fossa. Spleen: Normal in size and attenuation. Pancreas: Unremarkable. Adrenal glands: Unremarkable. Kidneys: The contrast enhanced kidneys are normal in size and without hydronephrosis. There are at least 3 obstructing calculi in the distal right ureter seen on images #267, #271, and #290. The largest stone is seen at the left vesicoureteral junction and measures up to 6 mm. No stones are seen in the right ureter. An 18 mm calculus is seen in the right renal pelvis on image #110. There is urothelial thickening involving the right renal pelvis and surrounding inflammation. Mild hydronephrosis is seen bilaterally. The kidneys enhance symmetrically. Abdominal vasculature: The abdominal aorta is normal in course and caliber noting mild atherosclerotic calcification. Bowel: There is no bowel obstruction. A duodenal diverticulum is incidentally noted. The appendix is well-visualized and normal. Peritoneum: There is no intraperitoneal free air or abdominal ascites. There is a fat-containing umbilical hernia. Lymphadenopathy: None. Pelvic viscera: The bladder is normal as visualized. The endometrium appears thickened for age, measuring up to 15 mm. No adnexal lesion is seen. Skeletal structures: The skeletal structures are osteopenic. There is mild to moderate lumbosacral spondylosis. There are chronic compression deformities of T12, L2, L3, and L4. Sclerotic change is noted in the pubic symphysis. There are bilateral pars defects at L5. No lytic or blastic lesions are seen. There are chronic/healed bilateral rib fractures. IMPRESSION: 1. There are at least 3 obstructing calculi in the distal left ureter which measure up to 6 mm. This causes mild left-sided hydronephrosis. 2. There is an 18 mm calculus in the right renal pelvis with mild right-sided hydronephrosis. There is associated urothelial thickening in the right renal pelvis with surrounding inflammation. Correlate with clinical findings and urinalysis for evidence of superimposed infection. 3. Moderate hiatal hernia. 4. The endometrium appears thickened for age measuring up to 15 mm. This is not well assessed by CT. Nonemergent pelvic ultrasound and gynecology evaluation is recommended. 5. Additional findings as above. ACT 112: Positive. There are findings on this exam that require communication between the performing entity and the patient following Patient Test Result Information Act ([place] Act 112) guidelines. Electronically signed by: Jamie Garcia M.D. 03/18/2023 4:59 PM Supervising Physician Co-Signing Physician Notes Patient seen and examined independently. Discussed with above provider. Patient is a 72-year-old female with past medical history of chronic iron deficiency anemia, history of PE with COVID treated with Eliquis presented today ED with low hemoglobin. Her hemoglobin was found to be 5.7 on outpatient labs. Patient reports abdominal discomfort for several weeks. She also reports generalized weakness and shortness of breath for several weeks. No postmenopausal bleeding. Plan is to transfuse 2 units of packed RBC. GI consult. CBC in a.m. IV PPI twice daily. Iron studies.
--- NOTE | 2023-03-18 17:01 | CT Scan Report ---
CT SCAN OF THE ABDOMEN AND PELVIS WITH IV CONTRAST CLINICAL HISTORY: Generalized abdominal pain. Anemia. COMPARISON STUDY: Abdominal CT dated 07/24/2019. TECHNIQUE: Following the IV administration of BRENDA cc of Optiray 320, CT scan of the abdomen and pelv is is performed from the lung bases to the proximal femora. Images are reviewed in the axial, sagitta l, and coronal planes. IV contrast was administered without complication. A dose lowering technique w as utilized adhering to the principles of ALARA. CT DOSE: 1019.06 mGy.cm FINDINGS: Lung bases: The heart is mildly enlarged and without pericardial effusion. The lung bases are clear n oting bibasilar scarring/atelectasis. There is a moderate hiatal hernia. Liver: The contrast-enhanced liver is normal in size, contour, and attenuation. There is mild central intrahepatic biliary ductal dilatation. The hepatic veins and portal veins are patent. Gallbladder: Surgically absent noting clips in the gallbladder fossa. Spleen: Normal in size and attenuation. Pancreas: Unremarkable. Adrenal glands: Unremarkable. Kidneys: The contrast enhanced kidneys are normal in size and without hydronephrosis. There are at le ast 3 obstructing calculi in the distal right ureter seen on images #267, #271, and #290. The largest stone is seen at the left vesicoureteral junction and measures up to 6 mm. No stones are seen in the right ureter. An 18 mm calculus is seen in the right renal pelvis on image #110. There is urothelial thickening involving the right renal pelvis and surrounding inflammation. Mild hydronephrosis is see n bilaterally. The kidneys enhance symmetrically. Abdominal vasculature: The abdominal aorta is normal in course and caliber noting mild atheroscleroti c calcification. Bowel: There is no bowel obstruction. A duodenal diverticulum is incidentally noted. The appendix is well-visualized and normal. Peritoneum: There is no intraperitoneal free air or abdominal ascites. There is a fat-containing umbi lical hernia. Lymphadenopathy: None. Pelvic viscera: The bladder is normal as visualized. The endometrium appears thickened for age, measu ring up to 15 mm. No adnexal lesion is seen. Skeletal structures: The skeletal structures are osteopenic. There is mild to moderate lumbosacral sp ondylosis. There are chronic compression deformities of T12, L2, L3, and L4. Sclerotic change is note d in the pubic symphysis. There are bilateral pars defects at L5. No lytic or blastic lesions are see n. There are chronic/healed bilateral rib fractures. IMPRESSION: 1. There are at least 3 obstructing calculi in the distal left ureter which measure up to 6 mm. This causes mild left-sided hydronephrosis. 2. There is an 18 mm calculus in the right renal pelvis with mild right-sided hydronephrosis. There i s associated urothelial thickening in the right renal pelvis with surrounding inflammation. Correlate with clinical findings and urinalysis for evidence of superimposed infection. 3. Moderate hiatal hernia. 4. The endometrium appears thickened for age measuring up to 15 mm. This is not well assessed by CT. Nonemergent pelvic ultrasound and gynecology evaluation is recommended. 5. Additional findings as above. ACT 112: Positive. There are findings on this exam that require communication between the performing entity and the patient following Patient Test Result Information Act ([place] Act 112) guidelines. Electronically signed by: Jamie Garcia M.D. 03/18/2023 4:59 PM
[2023-03-18] MEDS ORDERED: PRAMIPEXOLE DIHYDROCHLO 0.5 MG TAB PO ONE (17:33)
[2023-03-18 18:13] LABS: Ferritin 3.7 ng/ml (8-388)
[2023-03-18] MEDS ORDERED: cefTRIAXone SODIUM 2,000 MG in DEXTROSE 5% 50 ML IV STA (20:01)
[2023-03-18] MEDS ORDERED: ACETAMINOPHEN 325 MG TAB PO PRN (20:34)
[2023-03-18] MEDS ORDERED: POLYETHYLENE (MIRALAX) 17 GM PACK PO PRN (20:34)
[2023-03-18] MEDS: PRAMIPEXOLE DIHYDROCHLO 0.5 MG TAB PO SCH (21:17)
[2023-03-18] MEDS: traZODone HCL 50 MG TAB PO SCH (21:18)
[2023-03-18] MEDS: PANTOprazole 40 MG in SYRINGE 0 ML IV SCH (21:18)
[2023-03-18 22:38] LABS: Appearance Urine Clear (Clear); Bacteria Urine Automated 2+ (Negative); Bilirubin Urine Negative (Negative); Blood Urine Trace (Negative); Color Urine Yellow; Glucose Urine UA Negative (Negative); Ketones Urine Negative (Negative); Leukocyte Esterase Urine 2+ (Negative); Nitrite Urine Positive (Negative); Protein Urine Negative (Negative); RBC Urine Automated 0-4 /hpf (0-4); Urobilinogen Urine Negative (Negative); WBC Urine Automated >30 /hpf (0-5)
[2023-03-19 00:10] LABS: Hematocrit (blood only) 26.8 % (37.0-47.0); Hemoglobin 7.6 g/dl (12.0-16.0)
[2023-03-19] MEDS ORDERED: GABAPENTIN 100 MG CAP PO STA (05:36)
[2023-03-19 06:40] LABS: Basophils # (auto) 0.04 K/uL (0-0.2); Basophils % (auto) 0.5 %; Eosinophils # (auto) 0.44 K/uL (0-0.50); Eosinophils % (auto) 5.8 %; Hemoglobin 7.7 g/dl (12.0-16.0); Immature Granulocytes # (auto) 0.03 K/uL (0.01-0.20); Immature Granulocytes % (auto) 0.4 %; Lymphocytes # (auto) 1.97 K/uL (1.2-3.4); Mean Corpuscular Hemoglobin 21.3 pg (25.0-34.0); Mean Corpuscular Hgb Conc 29.6 g/dL (32.0-36.0); Mean Corpuscular Volume 71.8 fL (80.0-100.0); Mean Platelet Volume 9.6 fL (9.4-12.4); Monocytes # (auto) 1.05 K/uL (0.11-0.59); Monocytes % (auto) 13.9 %; Neutrophils # (auto) 4.05 K/uL (1.40-6.50); Neutrophils % (auto) 53.4 %; Nucleated RBC # (auto) 0.04 K/uL (0-0.12); Nucleated RBC % (auto) 0.5 %; Platelet Count 334 K/uL (130-400); RDW Coefficient of Variation 21.1 % (11.5-14.5); RDW Standard Deviation 54.6 fL (36.4-46.3); Red Blood Count 3.62 M/uL (4.20-5.40); White Blood Count 7.58 K/ul (4.8-10.8)
[2023-03-19 06:52] LABS: BUN Creatinine Ratio 18.8 (10-20); Calcium 8.8 mg/dl (8.6-10.3); Creatinine Clr Calc Pharmacy 45.1 ml/min; Est GFR (African American) 53.5 ml/min; Est GFR (Non-African American) 46.2 ml/min; Potassium 3.9 mmol/L (3.5-5.1)
[2023-03-19 07:11] LABS: Polychromasia 1+; Schistocytes 1+; Tear Drop Cells 1+
--- NOTE | 2023-03-19 07:35 | Urology Consultation ---
Date of Consultation March 19, 2023 Assessment & Plan (1) Hydronephrosis: (2) Ureteral calculus, left: (3) Calculus of proximal right ureter: 72-year-old female who presented to the emergency department on 03/18/2023 after being referred by her doctor for abnormal labs with low hemoglobin and increased fatigue, generalized weakness, increased SOB x 1 month; found to have multiple left ureteral stones and a large right calculus in the renal pelvis. -Patient is afebrile and hemodynamically stable. -Labs showcreatinine 1.17, hemoglobin 7.7 after 2 units of PRBCs, no leukocytosis. -UA suggestive of infection with positive nitrates and bacteria. -Urine culture pending. Currently on IV ceftriaxone. -Continue broad-spectrum antibiotics - follow culture and narrow per sensitivity data when available. CT A/P notable for multiple left ureteral stones measuring up to 6 mm with mild hydronephrosis. Large right calculus in the right renal pelvis with mild hydronephrosis. CT findings reviewed with patient. We discussed recommendation for bilateral ureteral stent placement today in the context of bilateral obstructing stones and urinalysis suspicious for infection. We discussed stone treatment will need to be done in the future after acute infection has been treated. She is agreeable to proceed. Keep NPO for procedure. Proceed with OR for cystoscopy, bilateral retrograde pyelogram and bilateral stent placement. Risks and benefits to be reviewed with patient by Dr. Jones. OR notified. Will cover with scheduled IV Ceftriaxone preoperatively. Supervising Physician Co-Signing Physician Notes Discussed patient with [facility]. Agree with plan. Saw patient personally and discussed the need for bilateral stent placement. Risk and benefits discussed. Consent obtained. Plan for cystoscopy, bilateral retrograde pyelogram and bilateral ureteral stent placement. History of Present Illness Reason for Consultation: ureteral calculi Attending Physician: Eric Subramanian MD History of Present Illness This is a 72-year-old female with past medical history of hypertension, anemia, GI bleed, hx of PE with COVID treated with Eliquis, who presented to the emergency department on 03/18/2023 after being referred by her doctor for abn ormal labs with low hemoglobin and increased fatigue, generalized weakness, increased SOB x 1 month. On arrival, she was afebrile and hemodynamically stable. Lab work notable for hemoglobin of 5.8, platelet count 425. Creatinine was 1.17, no leukocytosis. She additionally complained of abdominal pain for several weeks. A CT abdomen pelvis with IV contrast was performed. CT independently reviewed and notable for at least 3 obstructing calculi in the distal left ureter measuring up to 6 mm and resulting in mild left-sided hydronephrosis. An 18 mm calculus in the right renal pelvis with mild right-sided hydronephrosis and associated urothelial thickening in the right renal pelvis with surrounding inflammation. Urinalysis showed trace blood, positive nitrates, 2+ LE, >30 WBC, 0-4 RBC, 5-10 epithelials and 2+ bacteria. Urine culture pending. ED course included 2 units of PRBCs, IV Rocephin. She was admitted to the hospital medicine service for further evaluation. Urology is consulted for ureteral calculi. Chart review afebrile. Today's labs show creatinine 1.17, WBC 7.58, hemoglobin 7.7. Urine culture pending. On IV ceftriaxone. Patient seen and examined at bedside this morning. She is awake, alert and resting in bed. Reports feeling better since arrival. She reports intermittent generalized abdominal pain for several weeks with associated nausea and occasional vomiting. No abdominal or flank pain at present. No nausea or vomiting. No fever or chills. She is voiding without difficulty. Denies dysuria or hematuria. She is currently NPO. She reports prior stone history approximately 15 years ago requiring surgical intervention. Previously followed with Dr. Gutierrez. No additional concerns today. Allergies Allergy/AdvReac Type Severity Reaction Status Date / Time Penicillins Allergy Unknown RASH Verified 02/05/22 06:34 Sulfa (Sulfonamide Allergy Unknown Rash Verified 02/05/22 06:34 Antibiotics) methotrexate AdvReac Unknown Unknown Verified 02/05/22 06:34 MEDICATION FOR ARTHRITIS AdvReac Unknown MEDICATION Uncoded 02/05/22 06:34 INTERACTION, SEE NOTES BELOW - STOMACH ULCER Home Medications Medication Instructions Recorded Confirmed Type alendronate 70 mg tablet (Fosamax) 70 mg PO WK 11/23/18 03/18/23 History calcium carbonate 500 mg-vitamin 1 tab PO DAILY 11/23/18 03/18/23 History D3 5 mcg (200 unit) tablet (Calcium 500 + D) trazodone 50 mg tablet 50 mg PO HS 11/23/18 03/18/23 History ferrous sulfate 325 mg (65 mg 325 mg PO DAILY 08/11/21 03/18/23 History iron) tablet (iron) pramipexole 0.5 mg tablet 0.5 mg PO TID PRN Restless Leg(S) 08/11/21 03/18/23 History oxybutynin chloride 5 mg 5 mg PO DAILY 03/18/23 03/18/23 History tablet,extended release 24 hr pantoprazole 40 mg tablet,delayed 40 mg PO DAILY 03/18/23 03/18/23 History release Patient History Medical History History of COVID-20 AUG 2021 - HOSPITALIZED [facility] RESIDUALS: STOMACH IRRITATION/IMPROVING & DECREASED BODY STRENGTH - IMPROVING History of kidney stones History of pulmonary embolus (PE) WHEN HOSPITALIZED FOR COVID...BLOODTHINNER RX'D...CONTINUES...F/U HEMATOLOGY [facility] JANUARY 27 Iron deficiency anemia Osteoporosis Peptic ulcer HX Restless leg syndrome Rheumatoid arthritis Surgical History History of colonoscopy History of endoscopy History of right cataract extraction Hx of cholecystectomy Hx of cystoscopy Hx of lithotripsy Family History Grandmother Family history of colon cancer Other Heart disease Hypertension Kidney disease Social History Smoking Status: Never smoker Second Hand Exposure: Yes; Do You Dip or Chew Tobacco: No; Hx Alcohol Use: No Hx Substance Use: No Preferred Language: Slovenian Communication Ability: Effective Copy Manager Required: No Beliefs That Will Affect Care: None Current Living Situation: Spouse Other Information That Helps Us Care for You: No Feels Safe at Home: Yes Safety Concerns: Feels Safe At This Time Assistive Devices: Glasses Review of Systems Review of Systems: All systems reviewed & are unremarkable except as noted in HPI & below Respiratory: no dyspnea Cardiovascular: no chest pain Physical Exam Constitutional: well developed, well nourished and + obese; no acute distress and not ill appearing Eyes: no scleral abnormality Neck: normal visual inspection Respiratory: normal respiratory effort and able to speak in complete sentences; no respiratory distress and no labored breathing Cardiovascular: Extremities: no pedal edema Gastrointestinal (Abdomen): Inspection/Auscultation: abdomen normal to inspection; abdomen not distended Percussion/Palpation: abdomen soft; abdomen nontender and no guarding Musculoskeletal: Head/Neck/Chest: normocephalic and head atraumatic Skin: no rashes, warm and dry Neurologic: moves all extremities and awake Psychiatric: Orientation: alert, oriented x 3 and cooperative Genitourinary: no CVA tenderness Results & Data Vital Signs (Past 12 Hours) Vital Signs Temp Pulse Pulse Resp BP BP Pulse Ox 03/19/23 03:00 36.6 C 67 17 126/73 96 03/18/23 23:31 83 03/18/23 23:00 37.0 C 79 20 114/70 96 03/18/23 20:25 82 03/18/23 20:25 03/18/23 20:25 36.8 C 83 18 160/70 H 100 03/18/23 23:10 36.8 C 78 18 119/75 98 03/18/23 23:08 36.8 C 78 18 119/75 98 03/18/23 22:08 36.6 C 82 18 142/61 H 94 03/18/23 21:38 36.6 C 79 18 113/63 97 03/18/23 21:23 36.7 C 79 18 127/76 99 03/18/23 20:34 37.1 C 83 21 160/70 H 99 03/18/23 21:09 37 C 81 18 124/63 98 03/18/23 21:04 37 C 81 18 124/63 98 03/18/23 20:14 03/18/23 19:44 86 03/18/23 19:30 92 H 19 99 03/18/23 19:30 150/88 H O2 Del Method 03/19/23 03:00 Room Air 03/18/23 23:31 03/18/23 23:00 Room Air 03/18/23 20:25 03/18/23 20:25 Room Air 03/18/23 20:25 Room Air 03/18/23 23:10 03/18/23 23:08 03/18/23 22:08 03/18/23 21:38 03/18/23 21:23 03/18/23 20:34 Room Air 03/18/23 21:09 03/18/23 21:04 03/18/23 20:14 Room Air 03/18/23 19:44 03/18/23 19:30 03/18/23 19:30 PG Care Time/CCT Total # of Minutes Spent Total Time Spent with Patient: Total time spent is greater than 50% in coordination of care (as documented) at patient's floor/unit and/or counseling patient: Coding Level of Care Code 13261 INT INP/OBS CARE 2/55MIN Diagnoses Hydronephrosis N13.30 Ureteral calculus, left N20.1 Calculus of proximal right ureter N20.1
[2023-03-19] MEDS ORDERED: IRON SUCROSE 200 MG in 0.9 % SODIUM CHLORIDE 100 ML IV ONE (08:15)
[2023-03-19] MEDS ORDERED: cefTRIAXone SODIUM 1,000 MG in DEXTROSE 5% AD-VAN 50 ML IV SCH (09:00)
[2023-03-19] MEDS ORDERED: LIDOCAINE 2% 2 ML VIAL/AMP(20MG/ML) INFIL ONE (09:35)
[2023-03-19] MEDS ORDERED: PROPOFOL IV EMULSION 10 MG/ML 20 ML VIAL IV ONE (09:35)
[2023-03-19] MEDS ORDERED: fentaNYL citrate PF 100 MCG/2 ML VIAL ONE (09:35)
--- NOTE | 2023-03-19 09:38 | Gastrointestinal Consultation ---
Date of Consultation March 19, 2023 Assessment & Plan (1) Symptomatic anemia: 72 year old female with history of chronic iron deficiency anemia, H/O PE with COVID, rheumatoid arthritis, OA, HTN and others below admitted through the ED with symptomatic anemia, HGB of 5.8. S/P 2 units RBC w/ HGB 7.7 this AM without evidence of acute GI bleeding No current indication for EGD/Colonoscopy Agree with IV PPI BID x 48 hours Then PO PPI BID x 1 month Then PO PPI 40 mg once daily Plan for OP EGD/Colonoscopy Trend H&H Monitor for signs of black/bloody stools Transfuse PRN Will arrange OP endoscopy. Recall GI as needed. Thank you for allowing us to participate in the care of this patient. Please call with any acute changes, questions or concerns. Please see addendum below with additional recommendation from my supervising physician. Supervising Physician Co-Signing Physician Notes I personally saw and evaluated the patient on 03/19/2023 with KOFFI Meneses and agree with her findings and plan of care. 72 y/o F admitted with anemia found to have hgb of 5.8 (previously 12 back in 2020) now up to 7.7 after 2 units PRBC. patient denies any overt bleeding including melena, hematochezia, or hematemesis and reports her stools have been brown. Previously had an EGD and colonoscopy in 2018 for anemia found to have esophagitis, hiatal hernia, and internal hemorrhoids but no source of anemia found. VCE ordered but not completed. On physical exam patient is eating lunch in the bed. abdomen is soft and non- tender. Will arrange outpatient EGD and colonoscopy +/- VCE. She has no overt bleeding and brown stools so no need for inpatient endoscopy at this time. unclear if this was an acute drop in hgb or slow drop over time but i suspect this has been chronic. Sonya Smith, DO Gastroenterology and Hepatology History of Present Illness Reason for Consultation: anemia Requesting Physician: Marilynn Attending Physician: Eric Subramanian MD History of Present Illness 72 year old female with history of chronic iron deficiency anemia, H/O PE with COVID and was treated with Eliquis, rheumatoid arthritis admitted through the ED with symptomatic anemia, HGB of 5.8. S/P 2 units RBC w/ HGB 7.7 this AM. GI was asked to evaluate. Pt was seen and evaluated, chart reviewed. Notes that from a GI standpoint she is feeling well! Denies abd pain. No nausea, vomiting. No GERD. No dysphagia. Bowels moving well. No black or bloody stools. Denies any obvious signs of bleeding/bruising. No fever, chills, CP. She sis have some SOB x 1-2 months as an OP.Chart review indicated that in 2018 she was evaluated for myeloproliferative disorder. Hgb 5.8 s/p 2 units w/ response to 7.7 normal BUN CTAP 2022: There are at least 3 obstructing calculi in the distal left ureter which measure up to 6 mm. This causes mild left-sided hydronephrosis.There is an 18 mm calculus in the right renal pelvis with mild right-sided hydronephrosis. There is associated urothelial thickening in the right renal pelvis with surrounding inflammation. Correlate with clinical findings and urinalysis for evidence of superimposed infection.Moderate hiatal hernia. The endometrium appears thickened for age measuring up to 15 mm. This is not well assessed by CT. Nonemergent pelvic ultrasound and gynecology evaluation is recommended. VCE 2018: ordered but not completed EGD 2018: esophagitis in distal esophagus without bleeding. Medium size hiatal hernia without Sheldon erosions. Stomach appeared normal. Duodenal bulb and second portion of duodenum normal Colon 2018:Examined colon normal, internal hemorrhoids. Allergies Allergy/AdvReac Type Severity Reaction Status Date / Time Penicillins Allergy Unknown RASH Verified 02/05/22 06:34 Sulfa (Sulfonamide Allergy Unknown Rash Verified 02/05/22 06:34 Antibiotics) methotrexate AdvReac Unknown Unknown Verified 02/05/22 06:34 MEDICATION FOR ARTHRITIS AdvReac Unknown MEDICATION Uncoded 02/05/22 06:34 INTERACTION, SEE NOTES BELOW - STOMACH ULCER Home Medications Medication Instructions Recorded Confirmed Type alendronate 70 mg tablet (Fosamax) 70 mg PO WK 11/23/18 03/18/23 History calcium carbonate 500 mg-vitamin 1 tab PO DAILY 11/23/18 03/18/23 History D3 5 mcg (200 unit) tablet (Calcium 500 + D) trazodone 50 mg tablet 50 mg PO HS 11/23/18 03/18/23 History ferrous sulfate 325 mg (65 mg 325 mg PO DAILY 08/11/21 03/18/23 History iron) tablet (iron) pramipexole 0.5 mg tablet 0.5 mg PO TID PRN Restless Leg(S) 08/11/21 03/18/23 History oxybutynin chloride 5 mg 5 mg PO DAILY 03/18/23 03/18/23 History tablet,extended release 24 hr pantoprazole 40 mg tablet,delayed 40 mg PO DAILY 03/18/23 03/18/23 History release Patient History Medical History History of COVID-20 AUG 2021 - HOSPITALIZED [facility] RESIDUALS: STOMACH IRRITATION/IMPROVING & DECREASED BODY STRENGTH - IMPROVING History of kidney stones History of pulmonary embolus (PE) WHEN HOSPITALIZED FOR COVID...BLOODTHINNER RX'D...CONTINUES...F/U HEMATOLOGY [facility] JANUARY 27 Iron deficiency anemia Osteoporosis Peptic ulcer HX Restless leg syndrome Rheumatoid arthritis Surgical History History of colonoscopy History of endoscopy History of right cataract extraction Hx of cholecystectomy Hx of cystoscopy Hx of lithotripsy Family History Grandmother Family history of colon cancer Other Heart disease Hypertension Kidney disease Social History Smoking Status: Never smoker Second Hand Exposure: Yes; Do You Dip or Chew Tobacco: No; Hx Alcohol Use: No Hx Substance Use: No Preferred Language: Greek Communication Ability: Effective Costume Rental Clerk Required: No Beliefs That Will Affect Care: None Current Living Situation: Spouse Other Information That Helps Us Care for You: No Feels Safe at Home: Yes Safety Concerns: Feels Safe At This Time Assistive Devices: Glasses and Stair Lift Review of Systems Review of Systems: All systems reviewed & are unremarkable except as noted in HPI & below Physical Exam 2 Constitutional: WD/WN, vitals as above Respiratory: normal respiratory effort, lungs clear to auscultation Cardiovascular: Rate/Rhythm: regular rate Gastrointestinal (Abdomen): normal bowel sounds, soft, nontender, no hepatosplenomegaly Skin: no rashes, warm and dry Results & Data Vital Signs (Past 12 Hours) Vital Signs Temp Pulse Pulse Resp BP BP BP 03/19/23 07:29 36.6 C 70 18 133/77 03/19/23 03:00 36.6 C 67 17 126/73 03/18/23 23:31 83 03/18/23 23:00 37.0 C 79 20 114/70 03/18/23 23:10 36.8 C 78 18 119/75 03/18/23 23:08 36.8 C 78 18 119/75 03/18/23 22:08 36.6 C 82 18 142/61 H 03/18/23 21:38 36.6 C 79 18 113/63 Pulse Ox O2 Del Method 03/19/23 07:29 96 Room Air 03/19/23 03:00 96 Room Air 03/18/23 23:31 03/18/23 23:00 96 Room Air 03/18/23 23:10 98 03/18/23 23:08 98 03/18/23 22:08 94 03/18/23 21:38 97 Laboratory Results 03/19/23 03/19/23 03/18/23 Range/Units 05:58 05:58 Unknown WBC 7.58 (4.8-10.8) K/ul RBC 3.62 L (4.20-5.40) M/uL Hgb 7.7 L (12.0-16.0) g/dl Hct 26.0 L (37.0-47.0) % MCV 71.8 L (80.0-100.0) fL MCH 21.3 L (25.0-34.0) pg MCHC 29.6 L D (32.0-36.0) g/dL RDW Std Deviation 54.6 H (36.4-46.3) fL RDW Coeff of Jagjit 21.1 H (11.5-14.5) % Plt Count 334 (130-400) K/uL MPV 9.6 (9.4-12.4) fL Immature Gran % (Auto) 0.4 % Neut % (Auto) 53.4 % Lymph % (Auto) 26.0 % [place] % (Auto) 13.9 % Eos % (Auto) 5.8 % Baso % (Auto) 0.5 % Neut # (Auto) 4.05 (1.40-6.50) K/uL Lymph # (Auto) 1.97 (1.2-3.4) K/uL [place] # (Auto) 1.05 H (0.11-0.59) K/uL Eos # (Auto) 0.44 (0-0.50) K/uL Baso # (Auto) 0.04 (0-0.2) K/uL Immature Gran # (Auto) 0.03 (0.01-0.20) K/uL Absolute Nucleated RBC 0.04 (0-0.12) K/uL Nucleated RBC % (auto) 0.5 % Polychromasia 1+ Tear Drop Cells 1+ Schistocytes 1+ PT (9.0-12.0) Seconds INR (0.9-1.1) APTT (21.0-31.0) Seconds PTT Ratio Sodium 139 (136-145) mmol/L Potassium 3.9 (3.5-5.1) mmol/L Chloride 111 H (98-107) mmol/L Carbon Dioxide 22 (21-32) mmol/L Anion Gap 6 (3-11) BUN 22 (6-23) mg/dl Creatinine 1.17 (0.6-1.2) mg/dl Est Cr Clr Drug Dosing 45.1 ml/min Est GFR ( Amer) 53.5 ml/min Est GFR (Non-Af Amer) 46.2 ml/min BUN/Creatinine Ratio 18.8 (10-20) Glucose 109 H (70-99(Fasting)) mg/dl Calcium 8.8 (8.6-10.3) mg/dl Iron (35-150) mcg/dl Transferrin (200-360) mg/dl Ferritin (8-388) ng/ml Total Bilirubin (0.2-1.0) mg/dl AST (13-39) U/L ALT (7-52) U/L Alkaline Phosphatase (34-104) U/L Total Protein (6.0-8.3) gm/dl Albumin (3.4-5.0) gm/dl Globulin (2.5-4.0) gm/dl Albumin/Globulin Ratio (0.9-2) Urine Color Yellow Urine Appearance Clear (Clear) Urine pH 6.0 (4.5-7.5) Ur Specific [place] 1.040 H (1.000-1.030) Urine Protein Negative (Negative) Urine Glucose (UA) Negative (Negative) Urine Ketones Negative (Negative) Urine Blood Trace H (Negative) Urine Nitrite Positive A (Negative) Urine Bilirubin Negative (Negative) Urine Urobilinogen Negative (Negative) Ur Leukocyte Esterase 2+ H (Negative) Urine WBC (Auto) >30 H (0-5) /hpf Urine RBC (Auto) 0-4 (0-4) /hpf U Hyaline Cast (Auto) 1-5 (0-5) /lpf U Epithel Cells (Auto) 5-10 H (0-5) /lpf Urine Bacteria (Auto) 2+ H (Negative) Urine Yeast Not Reportable SARS-CoV-2, RNA, NAAT (NEGATIVE) Blood Type Blood Type Recheck Antibody Screen Crossmatch 03/18/23 03/18/23 03/18/23 Range/Units 23:18 15:43 14:26 WBC (4.8-10.8) K/ul RBC (4.20-5.40) M/uL Hgb 7.6 L (12.0-16.0) g/dl Hct 26.8 L (37.0-47.0) % MCV (80.0-100.0) fL MCH (25.0-34.0) pg MCHC (32.0-36.0) g/dL RDW Std Deviation (36.4-46.3) fL RDW Coeff of Jagjit (11.5-14.5) % Plt Count (130-400) K/uL MPV (9.4-12.4) fL Immature Gran % (Auto) % Neut % (Auto) % Lymph % (Auto) % [place] % (Auto) % Eos % (Auto) % Baso % (Auto) % Neut # (Auto) (1.40-6.50) K/uL Lymph # (Auto) (1.2-3.4) K/uL [place] # (Auto) (0.11-0.59) K/uL Eos # (Auto) (0-0.50) K/uL Baso # (Auto) (0-0.2) K/uL Immature Gran # (Auto) (0.01-0.20) K/uL Absolute Nucleated RBC (0-0.12) K/uL Nucleated RBC % (auto) % Polychromasia Tear Drop Cells Schistocytes PT (9.0-12.0) Seconds INR (0.9-1.1) APTT (21.0-31.0) Seconds PTT Ratio Sodium (136-145) mmol/L Potassium (3.5-5.1) mmol/L Chloride (98-107) mmol/L Carbon Dioxide (21-32) mmol/L Anion Gap (3-11) BUN (6-23) mg/dl Creatinine (0.6-1.2) mg/dl Est Cr Clr Drug Dosing ml/min Est GFR ( Amer) ml/min Est GFR (Non-Af Amer) ml/min BUN/Creatinine Ratio (10-20) Glucose (70-99(Fasting)) mg/dl Calcium (8.6-10.3) mg/dl Iron (35-150) mcg/dl Transferrin (200-360) mg/dl Ferritin (8-388) ng/ml Total Bilirubin (0.2-1.0) mg/dl AST (13-39) U/L ALT (7-52) U/L Alkaline Phosphatase (34-104) U/L Total Protein (6.0-8.3) gm/dl Albumin (3.4-5.0) gm/dl Globulin (2.5-4.0) gm/dl Albumin/Globulin Ratio (0.9-2) Urine Color Urine Appearance (Clear) Urine pH (4.5-7.5) Ur Specific [place] (1.000-1.030) Urine Protein (Negative) Urine Glucose (UA) (Negative) Urine Ketones (Negative) Urine Blood (Negative) Urine Nitrite (Negative) Urine Bilirubin (Negative) Urine Urobilinogen (Negative) Ur Leukocyte Esterase (Negative) Urine WBC (Auto) (0-5) /hpf Urine RBC (Auto) (0-4) /hpf U Hyaline Cast (Auto) (0-5) /lpf U Epithel Cells (Auto) (0-5) /lpf Urine Bacteria (Auto) (Negative) Urine Yeast SARS-CoV-2, RNA, NAAT NEGATIVE (NEGATIVE) Blood Type Blood Type Recheck A Positive Antibody Screen Crossmatch 03/18/23 03/18/23 03/18/23 Range/Units 14:26 14:26 14:26 WBC (4.8-10.8) K/ul RBC (4.20-5.40) M/uL Hgb (12.0-16.0) g/dl Hct (37.0-47.0) % MCV (80.0-100.0) fL MCH (25.0-34.0) pg MCHC (32.0-36.0) g/dL RDW Std Deviation (36.4-46.3) fL RDW Coeff of Jagjit (11.5-14.5) % Plt Count (130-400) K/uL MPV (9.4-12.4) fL Immature Gran % (Auto) % Neut % (Auto) % Lymph % (Auto) % [place] % (Auto) % Eos % (Auto) % Baso % (Auto) % Neut # (Auto) (1.40-6.50) K/uL Lymph # (Auto) (1.2-3.4) K/uL [place] # (Auto) (0.11-0.59) K/uL Eos # (Auto) (0-0.50) K/uL Baso # (Auto) (0-0.2) K/uL Immature Gran # (Auto) (0.01-0.20) K/uL Absolute Nucleated RBC (0-0.12) K/uL Nucleated RBC % (auto) % Polychromasia Tear Drop Cells Schistocytes PT 11.0 (9.0-12.0) Seconds INR 1.0 (0.9-1.1) APTT 20.4 L (21.0-31.0) Seconds PTT Ratio 0.7 Sodium 140 (136-145) mmol/L Potassium 4.0 (3.5-5.1) mmol/L Chloride 111 H (98-107) mmol/L Carbon Dioxide 23 (21-32) mmol/L Anion Gap 6 (3-11) BUN 27 H (6-23) mg/dl Creatinine 1.17 (0.6-1.2) mg/dl Est Cr Clr Drug Dosing 44.8 ml/min Est GFR ( Amer) 53.5 ml/min Est GFR (Non-Af Amer) 46.2 ml/min BUN/Creatinine Ratio 23.1 H (10-20) Glucose 169 H (70-99(Fasting)) mg/dl Calcium 8.8 (8.6-10.3) mg/dl Iron 13 L (35-150) mcg/dl Transferrin 357 (200-360) mg/dl Ferritin 3.7 L (8-388) ng/ml Total Bilirubin 0.4 (0.2-1.0) mg/dl AST 13 (13-39) U/L ALT 14 (7-52) U/L Alkaline Phosphatase 95 (34-104) U/L Total Protein 6.6 (6.0-8.3) gm/dl Albumin 4.0 (3.4-5.0) gm/dl Globulin 2.6 (2.5-4.0) gm/dl Albumin/Globulin Ratio 1.5 (0.9-2) Urine Color Urine Appearance (Clear) Urine pH (4.5-7.5) Ur Specific [place] (1.000-1.030) Urine Protein (Negative) Urine Glucose (UA) (Negative) Urine Ketones (Negative) Urine Blood (Negative) Urine Nitrite (Negative) Urine Bilirubin (Negative) Urine Urobilinogen (Negative) Ur Leukocyte Esterase (Negative) Urine WBC (Auto) (0-5) /hpf Urine RBC (Auto) (0-4) /hpf U Hyaline Cast (Auto) (0-5) /lpf U Epithel Cells (Auto) (0-5) /lpf Urine Bacteria (Auto) (Negative) Urine Yeast SARS-CoV-2, RNA, NAAT (NEGATIVE) Blood Type A Positive Blood Type Recheck Antibody Screen NEGATIVE Crossmatch See Detail 03/18/23 Range/Units 14:26 WBC 6.98 (4.8-10.8) K/ul RBC 3.21 L (4.20-5.40) M/uL Hgb 5.8 L* (12.0-16.0) g/dl Hct 22.3 L (37.0-47.0) % MCV 69.5 L (80.0-100.0) fL MCH 18.1 L (25.0-34.0) pg MCHC 26.0 L (32.0-36.0) g/dL RDW Std Deviation 49.9 H (36.4-46.3) fL RDW Coeff of Jagjit 20.1 H (11.5-14.5) % Plt Count 425 H (130-400) K/uL MPV 9.5 (9.4-12.4) fL Immature Gran % (Auto) 0.3 % Neut % (Auto) 56.3 % Lymph % (Auto) 24.1 % [place] % (Auto) 14.3 % Eos % (Auto) 4.3 % Baso % (Auto) 0.7 % Neut # (Auto) 3.93 (1.40-6.50) K/uL Lymph # (Auto) 1.68 (1.2-3.4) K/uL [place] # (Auto) 1.00 H (0.11-0.59) K/uL Eos # (Auto) 0.30 (0-0.50) K/uL Baso # (Auto) 0.05 (0-0.2) K/uL Immature Gran # (Auto) 0.02 (0.01-0.20) K/uL Absolute Nucleated RBC 0.04 (0-0.12) K/uL Nucleated RBC % (auto) 0.6 % Polychromasia 2+ Tear Drop Cells 1+ Schistocytes PT (9.0-12.0) Seconds INR (0.9-1.1) APTT (21.0-31.0) Seconds PTT Ratio Sodium (136-145) mmol/L Potassium (3.5-5.1) mmol/L Chloride (98-107) mmol/L Carbon Dioxide (21-32) mmol/L Anion Gap (3-11) BUN (6-23) mg/dl Creatinine (0.6-1.2) mg/dl Est Cr Clr Drug Dosing ml/min Est GFR ( Amer) ml/min Est GFR (Non-Af Amer) ml/min BUN/Creatinine Ratio (10-20) Glucose (70-99(Fasting)) mg/dl Calcium (8.6-10.3) mg/dl Iron (35-150) mcg/dl Transferrin (200-360) mg/dl Ferritin (8-388) ng/ml Total Bilirubin (0.2-1.0) mg/dl AST (13-39) U/L ALT (7-52) U/L Alkaline Phosphatase (34-104) U/L Total Protein (6.0-8.3) gm/dl Albumin (3.4-5.0) gm/dl Globulin (2.5-4.0) gm/dl Albumin/Globulin Ratio (0.9-2) Urine Color Urine Appearance (Clear) Urine pH (4.5-7.5) Ur Specific [place] (1.000-1.030) Urine Protein (Negative) Urine Glucose (UA) (Negative) Urine Ketones (Negative) Urine Blood (Negative) Urine Nitrite (Negative) Urine Bilirubin (Negative) Urine Urobilinogen (Negative) Ur Leukocyte Esterase (Negative) Urine WBC (Auto) (0-5) /hpf Urine RBC (Auto) (0-4) /hpf U Hyaline Cast (Auto) (0-5) /lpf U Epithel Cells (Auto) (0-5) /lpf Urine Bacteria (Auto) (Negative) Urine Yeast SARS-CoV-2, RNA, NAAT (NEGATIVE) Blood Type Blood Type Recheck Antibody Screen Crossmatch
[2023-03-19] MEDS ORDERED: HYDROmorphone INJ 2 MG/ML SYR/VIAL IV PRN (10:21)
[2023-03-19] MEDS ORDERED: fentaNYL citrate PF 100 MCG/2 ML VIAL IV PRN (10:21)
[2023-03-19] MEDS ORDERED: ePHEDrine sulfate 50 MG/ML AMP IV PRN (10:21)
[2023-03-19] MEDS ORDERED: ATROPINE SULFATE 0.1 MG/ML 10ML SYR IV PRN (10:21)
[2023-03-19] MEDS ORDERED: ONDANSETRON INJ 2 MG/ML 2 ML VIAL IV PRN (10:21)
--- NOTE | 2023-03-19 10:21 | Anesthesiology Consultation ---
Date of Service March 19, 2023 Assessment & Plan ASA ASA3 Proposed Anesthesia Anesthesia Type: General Risk / Benefits Reviewed With: PT / POA / Parent / Guardian, Accepts Plan and Informed Consent Obtained History Surgery Operation Date: 03/19/23 11:55 Proposed Procedures p Cystoscopy, Bilateral Retrograde Pyelogram, Bilateral Stent Placement - Gerardo Jones MD Height/Weight Height: 5 ft 2 in Weight: 91.8 kg Allergies Allergy/AdvReac Type Severity Reaction Status Date / Time Penicillins Allergy Unknown RASH Verified 02/05/22 06:34 Sulfa (Sulfonamide Allergy Unknown Rash Verified 02/05/22 06:34 Antibiotics) methotrexate AdvReac Unknown Unknown Verified 02/05/22 06:34 MEDICATION FOR ARTHRITIS AdvReac Unknown MEDICATION Uncoded 02/05/22 06:34 INTERACTION, SEE NOTES BELOW - STOMACH ULCER Medications Home Medications Medication Instructions Recorded Confirmed Last Taken alendronate 70 mg tablet (Fosamax) 70 mg PO WK 11/23/18 03/18/23 01/21/22 calcium carbonate 500 mg-vitamin 1 tab PO DAILY 11/23/18 03/18/23 02/04/22 D3 5 mcg (200 unit) tablet (Calcium 500 + D) trazodone 50 mg tablet 50 mg PO HS 11/23/18 03/18/23 02/04/22 ferrous sulfate 325 mg (65 mg 325 mg PO DAILY 08/11/21 03/18/23 02/04/22 iron) tablet (iron) pramipexole 0.5 mg tablet 0.5 mg PO TID PRN Restless Leg(S) 08/11/21 03/18/23 02/04/22 oxybutynin chloride 5 mg 5 mg PO DAILY 03/18/23 03/18/23 Unknown tablet,extended release 24 hr pantoprazole 40 mg tablet,delayed 40 mg PO DAILY 03/18/23 03/18/23 Unknown release Active Medications Generic Name Dose Route Start Last Admin Trade Name Freq PRN Reason Stop Dose Admin Pantoprazole Sodium 40 mg/ 10 mls @ 5 mls/min 03/18/23 21:00 03/18/23 21:18 Syringe IV 04/17/23 20:59 5 mls/min BID TAL Administration Pramipexole Dihydrochloride 0.5 mg 03/18/23 21:00 03/18/23 21:17 Pramipexole Dihydrochlo 0.5 Mg Tab PO 04/17/23 20:59 0.5 mg TID TAL Administration Trazodone HCl 50 mg 03/18/23 21:00 03/18/23 21:18 Trazodone Hcl 50 Mg Tab PO 04/17/23 20:59 50 mg HS TAL Administration NPO Date Last Intake of Fluids: 03/18/23 Time Last Intake of Fluids: 23:00 Date Last Intake of Solids: 03/18/23 Time Last Intake of Solids: 23:00 Past Medical History Medical History History of COVID-20 AUG 2021 - HOSPITALIZED [facility] RESIDUALS: STOMACH IRRITATION/IMPROVING & DECREASED BODY STRENGTH - IMPROVING History of kidney stones History of pulmonary embolus (PE) WHEN HOSPITALIZED FOR COVID...BLOODTHINNER RX'D...CONTINUES...F/U HEMATOLOGY [facility] JANUARY 27 Iron deficiency anemia Osteoporosis Peptic ulcer HX Restless leg syndrome Rheumatoid arthritis Exercise / Class Metabolic Activity II 4-5 Yardwork/Stairs/Walk up hill Past Family History Family History Grandmother Family history of colon cancer Other Heart disease Hypertension Kidney disease Past Surgical History Surgical History History of colonoscopy History of endoscopy History of right cataract extraction Hx of cholecystectomy Hx of cystoscopy Hx of lithotripsy Past Anesthesia History No Hx of Anesthesia Complications and No Family Hx of Anesthesia Complications History of PONV No Hx of PONV and No Hx of Motion Sickness Social History Smoking Status: Never smoker Do You Dip or Chew Tobacco: No Hx Alcohol Use: No Hx Substance Use: No substance use type: does not use Review of Systems denies fever/cough/ colds/ chest pain/ SOB/ MENDOZA denies MENDOZA Physical Exam Vital Signs Last Vital Signs Temp 36.8 C 03/19/23 09:44 Pulse 77 03/19/23 09:44 Resp 18 03/19/23 09:44 BP 147/79 H 03/19/23 09:44 Pulse Ox 97 03/19/23 09:44 O2 Del Method Room Air 03/19/23 09:44 ENMT Mouth: no TMJ abnormality and no dentition abnormality Thyromental Distance: > or= 3.5 Finger Breadths Mallampati Class: II Neck neck extension not limited Respiratory normal respiratory effort; no respiratory distress Auscultation: lungs clear to auscultation bilaterally Cardiovascular Rate/Rhythm: regular rate and regular rhythm Neurologic moves all extremities Psychiatric Orientation: alert and oriented x 3 Testing Laboratory Results 03/19/23 05:58 03/19/23 05:58 PT 11.0 Seconds (9.0-12.0) 03/18/23 14:26 INR 1.0 (0.9-1.1) 03/18/23 14: APTT 20.4 Seconds (21.0-31.0) L 03/18/23 14: Urine Color Yellow 03/18/23 Unknown Urine Appearance Clear (Clear) 03/18/23 Unknown Urine pH 6.0 (4.5-7.5) 03/18/23 Unknown Ur Specific [place] 1.040 (1.000-1.030) H 03/18/23 Unknown Urine Protein Negative (Negative) 03/18/23 Unknown Urine Glucose (UA) Negative (Negative) 03/18/23 Unknown Urine Ketones Negative (Negative) 03/18/23 Unknown Urine Nitrite Positive (Negative) A 03/18/23 Unknown Ur Leukocyte Esterase 2+ (Negative) H 03/18/23 Unknown Urine WBC (Auto) >30 /hpf (0-5) H 03/18/23 Unknown Urine RBC (Auto) 0-4 /hpf (0-4) 03/18/23 Unknown U Hyaline Cast (Auto) 1-5 /lpf (0-5) 03/18/23 Unknown U Epithel Cells (Auto) 5-10 /lpf (0-5) H 03/18/23 Unknown Urine Bacteria (Auto) 2+ (Negative) H 03/18/23 Unknown Blood Type A Positive 03/18/23 14: Antibody Screen NEGATIVE 03/18/23 14:
[2023-03-19] MEDS: cefTRIAXone SODIUM 2,000 MG in DEXTROSE 5% 50 ML IV SCH (10:30)
[2023-03-19] MEDS ORDERED: DIATRIZOATE MEGLUMINE 30% 100ML VIAL INSTIL ONE (11:17)
--- NOTE | 2023-03-19 11:25 | Post Operative Brief Note ---
PG Immediate Post Op with CF Date of Surgery March 19, 2023 Pre & Post Diagnosis Operation Date: 03/19/23 10:20 Pre-Op Diagnosis: Ureteral calculus, left; Calculus of proximal right ureter Post-Op Diagnosis: Ureteral calculus, left; Calculus of proximal right ureter I identified the patient and participated in the time-out.: Yes Procedure Operation Date: 03/19/23 10:20 Actual Procedures p Cystoscopy, Bilateral Retrograde Pyelogram, Bilateral Stent Placement(Bilateral) - Gerardo Jones MD Surgeon Gerardo Jones MD Replanter None Estimated Blood Loss 0 Findings See Below Bilateral retrograde showed mild bilateral hydronephrosis. Stents in appropriate position. Anesthesia Type General Complications none
--- NOTE | 2023-03-19 11:37 | Operative Report ---
PG Post Operative Report Pre & Post Diagnosis Operation Date: 03/19/23 10:20 Pre-Op Diagnosis: Ureteral calculus, left; Calculus of proximal right ureter Post-Op Diagnosis: Ureteral calculus, left; Calculus of proximal right ureter I identified the patient and participated in the time-out.: Yes Procedure Operation Date: 03/19/23 10:20 Actual Procedures p Cystoscopy, Bilateral Retrograde Pyelogram with radiographic interpretation, Bilateral Stent Placement(Bilateral) - Gerardo Jones MD Surgeon Gerardo Jones MD Gear Machinist None Estimated Blood Loss 0 Findings See Below Retrograde showed mild bilateral hydronephrosis. Bilateral ureteral stents in appropriate position. Specimens None Drains 1. 6 [place] by 24 cm left ureteral stent 2. 6 [place] by 26 cm right ureteral stent Anesthesia Type General Complications none Indications 72-year-old female with bilateral obstructing ureteral calculi, with a left ureteral calculus and a large right renal pelvis stone. Urinalysis suspicious for infection. Risk benefits discussed and patient agreed to bilateral ureteral stent placement Description of Procedure After informed consent was obtained, the patient was transported operative suite. MAC anesthesia was induced. The patient was placed in dorsal lithotomy position prepped and draped in a sterile fashion. They received preoperative Ancef for antibiotic prophylaxis. An appropriate surgical timeout was performed. A 22 [place] rigid scope was inserted per urethra into the bladder. Mckeon cystoscopy revealed no stones or lesions. I turned my attention the left ureteral orifice and intubated this with a 5 [place] open-ended catheter. A left retrograde pyelogram was shot which showed mild hydronephrosis. A sensor wire was advanced into the kidney and confirmed fluoroscopically. A 6 [place] by 24 cm left ureteral stent was deployed with a good proximal coil in the renal pelvis and a good distal coil noted in the bladder. These were confirmed fluoroscopically and under direct visualization, respectively. I turned my attention the right ureteral orifice and intubated this with a 5 [place] open-ended catheter. A right retrograde pyelogram was shot which showed mild hydronephrosis. A sensor wire was advanced into the kidney and confirmed fluoroscopically. Attempted to place a 6 [place] by 24 cm ureteral stent but this was too short. A 6 [place] by 6 cm right ureteral stent was deployed with a good proximal coil in the renal pelvis and a good distal coil noted in the bladder, confirmed fluoroscopically and under direct visualization, respectively. The bladder was emptied and the scope was removed. This concluded the end of the case. All counts were correct at the end of the case. I was present, scrubbed, and actively participated for the entirety of the procedure. I attest to the content of the Intraoperative Record and any orders documented therein. Any exceptions are noted below.
--- NOTE | 2023-03-19 11:54 | Anesthesiology Progress Note ---
Date of Service March 19, 2023 Anesthesia Post Procedure Vital Signs Vital Signs: Temp Pulse Pulse Pulse Pulse Resp BP 03/19/23 11:35 36.3 C L 70 19 03/19/23 08:00 74 03/19/23 09:44 36.8 C 77 18 03/19/23 07:29 36.6 C 70 18 03/19/23 03:00 36.6 C 67 17 03/18/23 23:31 83 03/18/23 23:00 37.0 C 79 20 03/18/23 20:25 82 03/18/23 20:25 03/18/23 20:25 36.8 C 83 18 03/18/23 23:10 36.8 C 78 18 119/75 03/18/23 23:08 36.8 C 78 18 119/75 03/18/23 22:08 36.6 C 82 18 142/61 H 03/18/23 21:38 36.6 C 79 18 113/63 03/18/23 21:23 36.7 C 79 18 127/76 03/18/23 20:34 37.1 C 83 21 03/18/23 21:09 37 C 81 18 124/63 03/18/23 21:04 37 C 81 18 124/63 03/18/23 20:14 03/18/23 19:44 86 03/18/23 19:30 92 H 19 03/18/23 19:30 150/88 H 03/18/23 19:15 85 15 03/18/23 19:01 171/87 H 03/18/23 19:01 80 14 03/18/23 19:00 76 19 03/18/23 18:45 80 18 03/18/23 18:45 169/91 H 03/18/23 18:30 78 20 03/18/23 18:30 164/82 H 03/18/23 18:15 77 21 03/18/23 18:15 137/90 03/18/23 18:00 74 14 03/18/23 18:00 168/111 H 03/18/23 17:45 79 13 03/18/23 17:45 196/99 H 03/18/23 17:30 81 20 03/18/23 17:30 166/119 H 03/18/23 17:15 92 H 16 03/18/23 17:15 144/76 H 03/18/23 17:00 80 12 03/18/23 17:00 130/90 03/18/23 16:47 82 22 03/18/23 16:47 142/56 H 03/18/23 16:46 91 H 21 03/18/23 16:15 86 16 03/18/23 16:15 143/81 H 03/18/23 16:00 81 20 03/18/23 16:00 135/87 03/18/23 15:45 82 19 03/18/23 15:45 115/60 03/18/23 15:43 83 25 H 03/18/23 16:53 36.9 C 77 12 145/59 H 03/18/23 16:45 36.7 C 96 H 18 142/56 H 03/18/23 15:43 82 03/18/23 14:04 36.4 C L 97 H 18 114/66 BP BP Pulse Ox O2 Del Method O2 Flow Rate 03/19/23 11:35 136/79 98 Oxymask 5 03/19/23 08:00 03/19/23 09:44 147/79 H 97 Room Air 03/19/23 07:29 133/77 96 Room Air 03/19/23 03:00 126/73 96 Room Air 03/18/23 23:31 03/18/23 23:00 114/70 96 Room Air 03/18/23 20:25 03/18/23 20:25 Room Air 03/18/23 20:25 160/70 H 100 Room Air 03/18/23 23:10 98 03/18/23 23:08 98 03/18/23 22:08 94 03/18/23 21:38 97 03/18/23 21:23 99 03/18/23 20:34 160/70 H 99 Room Air 03/18/23 21:09 98 03/18/23 21:04 98 03/18/23 20:14 Room Air 03/18/23 19:44 03/18/23 19:30 99 03/18/23 19:30 03/18/23 19:15 03/18/23 19:01 03/18/23 19:01 03/18/23 19:00 03/18/23 18:45 03/18/23 18:45 03/18/23 18:30 03/18/23 18:30 03/18/23 18:15 03/18/23 18:15 03/18/23 18:00 03/18/23 18:00 03/18/23 17:45 100 03/18/23 17:45 03/18/23 17:30 03/18/23 17:30 03/18/23 17:15 03/18/23 17:15 03/18/23 17:00 03/18/23 17:00 03/18/23 16:47 03/18/23 16:47 03/18/23 16:46 03/18/23 16:15 03/18/23 16:15 03/18/23 16:00 99 03/18/23 16:00 03/18/23 15:45 95 03/18/23 15:45 03/18/23 15:43 98 03/18/23 16:53 100 03/18/23 16:45 100 03/18/23 15:43 03/18/23 14:04 97 Room Air Transfer of Care Handoff Completed per policy Notes Mental Status: alert / awake / arousable and participated in evaluation Patient Amnestic to Procedure: Yes Nausea / Vomiting: adequately controlled Pain: adequately controlled Airway Patency, RR, SpO2: stable & adequate BP & HR: stable & adequate Hydration State: stable & adequate Anesthetic Complications: no major complications apparent and Pt Satisfied with anesthetic care
[2023-03-19] MEDS: PANTOprazole 40 MG in SYRINGE 0 ML IV SCH ×2 (12:58→20:51)
[2023-03-19] MEDS: OXYBUTYNIN CHLORIDE XL 5 MG TABCR PO SCH (12:58)
[2023-03-19] MEDS: PRAMIPEXOLE DIHYDROCHLO 0.5 MG TAB PO SCH ×2 (12:59)
--- NOTE | 2023-03-19 14:58 | Fluoroscopy Report ---
FL retrograde includes kub CLINICAL HISTORY: B/L COMPARISON STUDY: CT of the abdomen and pelvis March 18, 2023. FLUOROSCOPY TIME: 27.5 seconds. Ka, r: 9.19 mGy FLUOROSCOPIC IMAGES: 7 FINDINGS: Fluoroscopy was provided during bilateral retrograde pyelograms and bilateral ureteral sten t insertion. The collecting systems are partially opacified. Proximal aspects of the stents project o vickey the collecting systems. IMPRESSION: Fluoroscopy provided during bilateral retrograde pyelograms and bilateral ureteral stent insertion. ACT 112: Negative or not required by law. Electronically signed by: Andre Coreas M.D. 03/19/2023 2:57 PM
--- NOTE | 2023-03-19 17:34 | Hospitalist Progress Note ---
Date of Service March 19, 2023 Assessment & Plan (1) Acute on chronic anemia: (2) Iron deficiency anemia: Plan: Patient is 72 y/o F with PMH chronic iron deficiency anemia, H/O PE with COVID and was treated with Eliquis, rheumatoid arthritis presented to ER because of abnormal labs - Hgb: 5.7 on outpatient labs 03/17/23. Increased fatigue, generalized weakness, increased SOB x 1 month. No Eliquis since 01/2022. Denies NSAID use. Acute on chronic symptomatic anemia H/O Iron deficiency anemia H/O internal hemorrhoids, esophagitis Denies any acute GI bleeding History colonoscopy: 07/15/2018: Examined colon normal, internal hemorrhoids. History EGD 07/15/2018: LA grade B esophagitis in distal esophagus without bleeding. Medium size hiatal hernia without Sheldon erosions. Stomach appeared normal. Duodenal bulb and second portion of duodenum normal. History of bone marrow biopsy 08/24/2018: Prominent eosinophilia suspected myeloproliferative neoplasm. Had NexGen myeloid disorders profile that was negative S/P 2 units PRBCs FOBT negative in ED Hb 5.8>7.7 Plan for outpatient EGD/colonoscopy Continue PPI twice daily Also received IV iron Appreciate GI input Monitor for bleeding issues Needs follow-up with GI and hematology upon discharge Obstructive uropathy Right ureteral calculus --CT ABD:There are at least 3 obstructing calculi in the distal left ureter which measure up to 6 mm. This causes mild left-sided hydronephrosis. There is an 18 mm calculus in the right renal pelvis with mild right-sided hydronephrosis. There is associated urothelial thickening in the right renal pelvis with surrounding inflammation. Correlate with clinical findings and urinalysis for evidence of superimposed infection. Moderate hiatal hernia. The endometrium appears thickened for age measuring up to 15 mm. This is not well assessed by CT. Nonemergent pelvic ultrasound and gynecology evaluation is recommended. S/P cystoscopy, bilateral retrograde pyelogram with radiographic interpretation, bilateral stents placement by Dr. Jones on 03/19/2023 --Urine culture pending Empirically on Rocephin Appreciate urology input Needs follow-up with urology upon discharge Endometrial thickening Incidental finding on CT Needs follow-up with B[employer] MA[employer] as outpatient (3) Restless leg syndrome: Plan: Continue Mirapex (4) Rheumatoid arthritis: Plan: History of RA After COVID-19 infection in 2020. Patient reports improvement of her RA symptoms and is no longer on Rituxan (5) Hypertension: Plan: BP mildly elevated Currently not on meds Monitor (6) Osteoporosis: Plan: Reports has not been taking Fosamax DVT Prophylaxis SCDs Re: Anemia Code Status Full Code Admission and Anticipated Discharge Date Admission Date: March 18, 2023 Subjective Patient is seen and examined at bedside States having ureteral stent discomfort Also reports chronic restless leg Denies any chest pain, dyspnea, dizziness, nausea, vomiting Dyspnea on exertion improving Denies any active bleeding issues No other complaints Review of Systems Review of Systems: All systems reviewed & are unremarkable except as noted in Subjective Physical Exam Physical Exam: Physical Exam: Vitals signs as noted above General Appearance:Obese, no apparent distress Head: normocephalic, Atraumatic Eyes: normal inspection, EOMI Neck: supple, Trachea midline Respiratory/Chest: Normal breath sounds, CTA, No accessory muscle use Cardiovascular: S1, S2, No murmur Abdomen/GI:Soft, Non tender, Bowel sounds present Extremities/Musculoskeletal:normal inspection, no edema Neurologic/Psych:AAOX3, grossly no focal neurological deficits Skin: normal color, warm Results & Data Results & Data Vital Signs (Past 12 Hours) Vital Signs Temp Pulse Pulse Pulse Pulse Resp BP 03/19/23 15:37 36.6 C 72 20 142/90 H 03/19/23 15:23 66 03/19/23 13:56 36.3 C L 72 20 157/79 H 03/19/23 12:28 36.8 C 66 18 03/19/23 12:00 36.8 C 68 20 149/94 H 03/19/23 12:05 36.3 C L 67 17 03/19/23 11:55 67 18 03/19/23 11:45 69 17 03/19/23 11:35 36.3 C L 70 19 03/19/23 08:00 74 03/19/23 09:44 36.8 C 77 18 147/79 H 03/19/23 07:29 36.6 C 70 18 133/77 BP Pulse Ox O2 Del Method O2 Flow Rate 03/19/23 15:37 94 Room Air 03/19/23 15:23 03/19/23 13:56 98 Room Air 03/19/23 12:28 124/89 98 Room Air 03/19/23 12:00 94 Room Air 03/19/23 12:05 135/75 95 Room Air 03/19/23 11:55 146/76 H 97 Room Air 03/19/23 11:45 136/81 99 Oxymask 5 03/19/23 11:35 136/79 98 Oxymask 5 03/19/23 08:00 03/19/23 09:44 97 Room Air 03/19/23 07:29 96 Room Air Laboratory Results Short CBC 03/18/23 03/19/23 Range/Units 23:18 05:58 WBC 7.58 (4.8-10.8) K/ul Hgb 7.6 L 7.7 L (12.0-16.0) g/dl Hct 26.8 L 26.0 L (37.0-47.0) % Plt Count 334 (130-400) K/uL BMP 03/19/23 05:58 Sodium 139 Potassium 3.9 Chloride 111 H Carbon Dioxide 22 BUN 22 Creatinine 1.17 Glucose 109 H Calcium 8.8 Urine 03/18/23 Range/Units Unknown Urine Color Yellow Urine Appearance Clear (Clear) Urine pH 6.0 (4.5-7.5) Ur Specific [place] 1.040 H (1.000-1.030) Urine Protein Negative (Negative) Urine Glucose (UA) Negative (Negative)
[2023-03-19] MEDS: traZODone HCL 50 MG TAB PO SCH (20:51)
[2023-03-19] MEDS: PRAMIPEXOLE DIHYDROCHLO 0.5 MG TAB PO PRN (21:31)
[2023-03-19] MEDS ORDERED: PROMETHAZINE HCL 12.5 MG in SODIUM CHLORIDE 0.9% 50 ML IV STA (21:41)
[2023-03-19 21:57] LABS: Hematocrit (blood only) 28.1 % (37.0-47.0); Hemoglobin 8.1 g/dl (12.0-16.0)
[2023-03-19] MEDS ORDERED: MICONAZOLE NITRATE POWDER 85 GM EXT PRN (23:45)
[2023-03-20] MEDS ORDERED: LOPERAMIDE HCL 2 MG CAP PO STA (01:33)
[2023-03-20] MEDS ORDERED: ONDANSETRON INJ 2 MG/ML 2 ML VIAL IV STA (06:14)
[2023-03-20 06:31] LABS: Hematocrit (blood only) 27.1 % (37.0-47.0); Hemoglobin 7.8 g/dl (12.0-16.0); Mean Corpuscular Hemoglobin 20.7 pg (25.0-34.0); Mean Corpuscular Hgb Conc 28.8 g/dL (32.0-36.0); Mean Corpuscular Volume 71.9 fL (80.0-100.0); Mean Platelet Volume 9.9 fL (9.4-12.4); Nucleated RBC # (auto) 0.14 K/uL (0-0.12); Nucleated RBC % (auto) 1.1 %; Platelet Count 331 K/uL (130-400); RDW Coefficient of Variation 22.1 % (11.5-14.5); RDW Standard Deviation 56.6 fL (36.4-46.3); Red Blood Count 3.77 M/uL (4.20-5.40); White Blood Count 12.26 K/ul (4.8-10.8)
[2023-03-20 06:39] LABS: BUN Creatinine Ratio 16.2 (10-20); Calcium 8.7 mg/dl (8.6-10.3); Creatinine Clr Calc Pharmacy 41.3 ml/min; Est GFR (African American) 47.1 ml/min; Est GFR (Non-African American) 40.7 ml/min
[2023-03-20] MEDS: FERROUS SULFATE 325 MG TAB PO SCH (08:56)
[2023-03-20] MEDS: PANTOprazole 40 MG in SYRINGE 0 ML IV SCH (08:57)
[2023-03-20] MEDS ORDERED: SODIUM CHLORIDE 0.9% 1000ML 1,000 ML IV ONE (09:03)
--- NOTE | 2023-03-20 09:09 | Urology Progress Note ---
Date of Service March 20, 2023 Assessment & Plan (1) Calculus of proximal right ureter: (2) Ureteral calculus, left: (3) Hydronephrosis: Plan: - Pt POD#1 s/p cystoscopy, bilateral retrograde pyelogram and bilateral ureteral stent placement with Dr. Jones. - Afebrile, lab work reviewed - creatinine 1.30, WBC 12.26, Hgb 7.8. - Urine culture prelim showing gram negative bacilli. - Continue broad spectrum antibiotics and narrow per sensitivity data when available. - Tolerating bilateral ureteral stent with mild bother. - Okay to d/c from perspective when medically stable. - Recommend d/c with course of appropriate PO antibiotics. - Discussed need for definitive stone treatment after acute infection has been treated. - Recommend Tamsulosin, prn Pyridium and oxybutynin, and prn pain medication for stent management. - Expected clinical course reviewed, all questions answered - Will arrange outpatient follow-up with our service to discuss definitive stone management. - will sign off, please contact our service with any additional questions. Admission and Anticipated Discharge Date Admission Date: March 18, 2023 Subjective Patient seen and examined at bedside this morning. She notes some stent discomfort bilaterally. Reports urinary frequency and hematuria postoperatively. She reports some abdominal discomfort and nausea this morning, now resolved. No fever or chills. Review of Systems Constitutional: as per Subjective / HPI Gastrointestinal: as per Subjective / HPI Genitourinary: as per Subjective / HPI Physical Exam Constitutional: no acute distress Respiratory: normal respiratory effort; no respiratory distress and no labored breathing Gastrointestinal (Abdomen): Inspection/Auscultation: abdomen normal to inspection; abdomen not distended Musculoskeletal: Head/Neck/Chest: normocephalic and head atraumatic Neurologic: moves all extremities and awake Psychiatric: Orientation: alert and oriented x 3 Results & Data Vital Signs (Past 12 Hours) Vital Signs Temp Pulse Pulse Resp BP Pulse Ox O2 Del Method 03/20/23 07:50 36.6 C 72 20 117/68 94 Room Air 03/20/23 03:00 36.6 C 80 22 148/82 H 95 Room Air 03/19/23 23:49 74 03/19/23 23:00 36.6 C 83 22 115/72 95 Room Air PG Care Time/CCT Total # of Minutes Spent Total Time Spent with Patient: Total time spent is greater than 50% in coordination of care (as documented) at patient's floor/unit and/or counseling patient: Coding Level of Care Code 26774 SUB INP/OBS CARE 11/26MIN Diagnoses Calculus of proximal right ureter N20.1 Ureteral calculus, left N20.1 Hydronephrosis N13.30
[2023-03-20] MEDS: OXYBUTYNIN CHLORIDE XL 5 MG TABCR PO SCH (10:22)
[2023-03-20] MEDS ORDERED: IRON SUCROSE 200 MG in 0.9 % SODIUM CHLORIDE 100 ML IV ONE (10:30)
--- NOTE | 2023-03-20 15:24 | Electrocardiogram Report ---
Test Reason : Blood Pressure : / mmHG Vent. Rate : 076 BPM Atrial Rate : 076 BPM P-R Int : 184 ms QRS Dur : 082 ms QT Int : 388 ms P-R-T Axes : 021 -14 012 degrees QTc Int : 436 ms Normal sinus rhythm Moderate voltage criteria for LVH, may be normal variant Borderline ECG When compared with ECG of 13-AUG-2021 00:52, Vent. rate has decreased BY 37 BPM Minimal criteria for Inferior infarct are no longer Present Nonspecific T wave abnormality no longer evident in Anterolateral leads Confirmed by Nikita Akbar ([id number]) on 03/20/2023 3:24:25 PM Referred By: Dillon Viera Confirmed By:Jorge Akbar
[2023-03-20] MEDS ORDERED: PHENAZOPYRIDINE HCL 100 MG TAB PO PRN (17:50)
--- NOTE | 2023-03-20 17:50 | Hospitalist Progress Note ---
Date of Service March 20, 2023 Assessment & Plan (1) Acute on chronic anemia: (2) Iron deficiency anemia: Plan: Patient is 72 y/o F with PMH chronic iron deficiency anemia, H/O PE with COVID and was treated with Eliquis, rheumatoid arthritis presented to ER because of abnormal labs - Hgb: 5.7 on outpatient labs 03/17/23. Increased fatigue, generalized weakness, increased SOB x 1 month. No Eliquis since 01/2022. Denies NSAID use. Acute on chronic symptomatic anemia H/O Iron deficiency anemia H/O internal hemorrhoids, esophagitis Denies any acute GI bleeding History colonoscopy: 07/15/2018: Examined colon normal, internal hemorrhoids. History EGD 07/15/2018: LA grade B esophagitis in distal esophagus without bleeding. Medium size hiatal hernia without Sheldon erosions. Stomach appeared normal. Duodenal bulb and second portion of duodenum normal. History of bone marrow biopsy 08/24/2018: Prominent eosinophilia suspected myeloproliferative neoplasm. Had NexGen myeloid disorders profile that was negative S/P 2 units PRBCs FOBT negative in ED Hb 5.8>7.8 Plan for outpatient EGD/colonoscopy Continue PPI twice daily Also received IV iron Appreciate GI input Monitor for bleeding issues Needs follow-up with GI and hematology upon discharge Hemoglobin fairly stable Obstructive uropathy Right ureteral calculus --CT ABD:There are at least 3 obstructing calculi in the distal left ureter which measure up to 6 mm. This causes mild left-sided hydronephrosis. There is an 18 mm calculus in the right renal pelvis with mild right-sided hydronephrosis. There is associated urothelial thickening in the right renal pelvis with surrounding inflammation. Correlate with clinical findings and urinalysis for evidence of superimposed infection. Moderate hiatal hernia. The endometrium appears thickened for age measuring up to 15 mm. This is not well assessed by CT. Nonemergent pelvic ultrasound and gynecology evaluation is recommended. S/P cystoscopy, bilateral retrograde pyelogram with radiographic interpretation, bilateral stents placement by Dr. Jones on 03/19/2023 --Urine culture growing gram-negative bacilli Continue Rocephin for now Appreciate urology input Needs follow-up with urology upon discharge Endometrial thickening Incidental finding on CT Needs follow-up with [facility] [employer] as outpatient (3) Restless leg syndrome: Plan: Continue Mirapex (4) Rheumatoid arthritis: Plan: History of RA After COVID-19 infection in 2020. Patient reports improvement of her RA symptoms and is no longer on Rituxan (5) Hypertension: Plan: BP mildly elevated Currently not on meds Monitor (6) Osteoporosis: Plan: Reports has not been taking Fosamax DVT Prophylaxis SCDs Re: Anemia, Hematuria Code Status Full Code Admission and Anticipated Discharge Date Admission Date: March 18, 2023 Subjective Patient is seen and examined at bedside Intermittent ureteral stent discomfort Also reports minimal hematuria Had nausea this morning but later resolved No other complaints Denies any chest pain, dyspnea, dizziness Review of Systems Review of Systems: All systems reviewed & are unremarkable except as noted in Subjective Physical Exam Physical Exam: Physical Exam: Vitals signs as noted above General Appearance:Obese, no apparent distress Head: normocephalic, Atraumatic Eyes: normal inspection, EOMI Neck: supple, Trachea midline Respiratory/Chest: Normal breath sounds, CTA, No accessory muscle use Cardiovascular: S1, S2, No murmur Abdomen/GI:Soft, Non tender, Bowel sounds present Extremities/Musculoskeletal:normal inspection, no edema Neurologic/Psych:AAOX3, grossly no focal neurological deficits Skin: normal color, warm Results & Data Results & Data Vital Signs (Past 12 Hours) Vital Signs Temp Pulse Pulse Resp BP Pulse Ox O2 Del Method 03/20/23 15:56 72 03/20/23 15:54 36.6 C 77 19 127/80 96 Room Air 03/20/23 08:00 79 03/20/23 11:59 36.6 C 66 18 135/79 96 Room Air 03/20/23 07:50 36.6 C 72 20 117/68 94 Room Air Laboratory Results Short CBC 03/19/23 03/20/23 Range/Units 21:08 05:43 WBC 12.26 H (4.8-10.8) K/ul Hgb 8.1 L 7.8 L (12.0-16.0) g/dl Hct 28.1 L 27.1 L (37.0-47.0) % Plt Count 331 (130-400) K/uL BMP 03/20/23 05:43 Sodium 137 Potassium 4.0 Chloride 110 H Carbon Dioxide 22 BUN 21 Creatinine 1.30 H Glucose 113 H Calcium 8.7
[2023-03-20] MEDS: PANTOprazole 40 MG TAB PO SCH (19:35)
[2023-03-20] MEDS: traZODone HCL 50 MG TAB PO SCH (19:36)
[2023-03-20] MEDS: TAMSULOSIN HCL 0.4 MG CAP PO SCH (20:48)
[2023-03-20] MEDS: PRAMIPEXOLE DIHYDROCHLO 0.5 MG TAB PO PRN (20:48)
[2023-03-20] MEDS: cefTRIAXone SODIUM 2,000 MG in DEXTROSE 5% 50 ML IV SCH (20:48)
[2023-03-21] MEDS: ONDANSETRON INJ 2 MG/ML 2 ML VIAL IV PRN ×2 (04:26→07:59)
[2023-03-21 06:22] LABS: Hematocrit (blood only) 26.1 % (37.0-47.0); Hemoglobin 7.5 g/dl (12.0-16.0); Mean Corpuscular Hgb Conc 28.7 g/dL (32.0-36.0); Mean Corpuscular Volume 73.1 fL (80.0-100.0); Mean Platelet Volume 9.8 fL (9.4-12.4); Nucleated RBC # (auto) 0.16 K/uL (0-0.12); Nucleated RBC % (auto) 1.5 %; Platelet Count 315 K/uL (130-400); RDW Standard Deviation 58.4 fL (36.4-46.3); Red Blood Count 3.57 M/uL (4.20-5.40); White Blood Count 10.69 K/ul (4.8-10.8)
[2023-03-21 06:40] LABS: BUN Creatinine Ratio 16.2 (10-20); Calcium 8.1 mg/dl (8.6-10.3); Creatinine Clr Calc Pharmacy 47.9 ml/min; Est GFR (African American) 57.1 ml/min; Est GFR (Non-African American) 49.2 ml/min; Potassium 3.9 mmol/L (3.5-5.1)
[2023-03-21] MEDS ORDERED: CEFDINIR 300 MG CAP PO SCH (09:15)
[2023-03-21] MEDS: FERROUS SULFATE 325 MG TAB PO SCH (09:20)
[2023-03-21] MEDS: PANTOprazole 40 MG TAB PO SCH (09:58)
[2023-03-21] MEDS: OXYBUTYNIN CHLORIDE XL 5 MG TABCR PO SCH (09:58)
[2023-03-21] MEDS ORDERED: FERROUS SULFATE 325 MG TAB PO SCH (11:00)
[2023-03-21] MEDS: TAMSULOSIN HCL 0.4 MG CAP PO SCH (11:32)
--- NOTE | 2023-03-21 13:19 | Hospitalist Progress Note ---
Date of Service March 21, 2023 Assessment & Plan (1) Acute on chronic anemia: (2) Iron deficiency anemia: Plan: Patient is 72 y/o F with PMH chronic iron deficiency anemia, H/O PE with COVID and was treated with Eliquis, rheumatoid arthritis presented to ER because of abnormal labs - Hgb: 5.7 on outpatient labs 03/17/23. Increased fatigue, generalized weakness, increased SOB x 1 month. No Eliquis since 01/2022. Denies NSAID use. Acute on chronic symptomatic anemia H/O Iron deficiency anemia H/O internal hemorrhoids, esophagitis Denies any acute GI bleeding History colonoscopy: 07/15/2018: Examined colon normal, internal hemorrhoids. History EGD 07/15/2018: LA grade B esophagitis in distal esophagus without bleeding. Medium size hiatal hernia without Sheldon erosions. Stomach appeared normal. Duodenal bulb and second portion of duodenum normal. History of bone marrow biopsy 08/24/2018: Prominent eosinophilia suspected myeloproliferative neoplasm. Had NexGen myeloid disorders profile that was negative S/P 2 units PRBCs FOBT negative in ED Hb 5.8>7.5 Plan for outpatient EGD/colonoscopy Continue PPI twice daily Also received IV iron Appreciate GI input Monitor for bleeding issues Advised to follow-up with GI and hematology upon discharge Obstructive uropathy Right ureteral calculus --CT ABD:There are at least 3 obstructing calculi in the distal left ureter which measure up to 6 mm. This causes mild left-sided hydronephrosis. There is an 18 mm calculus in the right renal pelvis with mild right-sided hydronephrosis. There is associated urothelial thickening in the right renal pelvis with surrounding inflammation. Correlate with clinical findings and urinalysis for evidence of superimposed infection. Moderate hiatal hernia. The endometrium appears thickened for age measuring up to 15 mm. This is not well assessed by CT. Nonemergent pelvic ultrasound and gynecology evaluation is recommended. S/P cystoscopy, bilateral retrograde pyelogram with radiographic interpretation, bilateral stents placement by Dr. Jones on 03/19/2023 --Urine culture growing gram-negative bacilli Continue Rocephin>> transition to Omnicef Appreciate urology input Needs follow-up with urology upon discharge Endometrial thickening Incidental finding on CT Needs follow-up with [employer]ED[employer] CAPTAIN as outpatient (3) Restless leg syndrome: Plan: Continue Mirapex (4) Rheumatoid arthritis: Plan: History of RA After COVID-19 infection in 2020. Patient reports improvement of her RA symptoms and is no longer on Rituxan (5) Hypertension: Plan: BP mildly elevated Currently not on meds Monitor (6) Osteoporosis: Plan: Reports has not been taking Fosamax DVT Prophylaxis SCDs Re: Anemia, Hematuria Code Status Full Code Admission and Anticipated Discharge Date Admission Date: March 18, 2023 Subjective Patient is seen and examined at bedside States having nausea earlier today Still has some stent discomfort Denies any hematuria today Also denies any chest pain, dyspnea, dizziness Plan to discharge home today Review of Systems Review of Systems: All systems reviewed & are unremarkable except as noted in Subjective Physical Exam Physical Exam: Physical Exam: Vitals signs as noted above General Appearance:Obese, no apparent distress Head: normocephalic, Atraumatic Eyes: normal inspection, EOMI Neck: supple, Trachea midline Respiratory/Chest: Normal breath sounds, CTA, No accessory muscle use Cardiovascular: S1, S2, No murmur Abdomen/GI:Soft, Non tender, Bowel sounds present Extremities/Musculoskeletal:normal inspection, no edema Neurologic/Psych:AAOX3, grossly no focal neurological deficits Skin: normal color, warm Results & Data Results & Data Vital Signs (Past 12 Hours) Vital Signs Temp Pulse Pulse Resp BP BP Pulse Ox 03/21/23 11:23 36.6 C 76 18 118/64 96 03/21/23 08:00 74 03/21/23 07:37 36.9 C 84 18 133/66 93 03/21/23 04:20 37 C 82 18 121/65 97 O2 Del Method 03/21/23 11:23 Room Air 03/21/23 08:00 03/21/23 07:37 Room Air 03/21/23 04:20 Room Air Laboratory Results Short CBC 03/21/23 Range/Units 06:07 WBC 10.69 (4.8-10.8) K/ul Hgb 7.5 L (12.0-16.0) g/dl Hct 26.1 L (37.0-47.0) % Plt Count 315 (130-400) K/uL BMP 03/21/23 06:07 Sodium 137 Potassium 3.9 Chloride 111 H Carbon Dioxide 21 BUN 18 Creatinine 1.11 Glucose 114 H Calcium 8.1 L
--- NOTE | 2023-03-21 13:29 | Discharge Summary ---
Date of Service March 21, 2023 Admission HPI Per Admitting Provider Patient is 72 y/o F with PMH chronic iron deficiency anemia, H/O PE with COVID and was treated with Eliquis, rheumatoid arthritis presented to ER because of abnormal labs. Patient reports has been having increased fatigue, generalized weakness, increased SOB for past month. She had outpatient labs drawn on 03/17/2023 with a hemoglobin of 5.7 and was referred to ER. Reports some nausea and intermittent vomiting. Reports since COVID-19 infection has been having intermittent nausea and abdominal pain. Previously had occasional abdominal pain, however past couple of weeks mid abdominal pain has become persistent. P atient states that she uses NSAIDs very rarely. Patient states since having COVID-19 her RA symptoms have resolved. Denies alcohol use. Has been off of Eliquis since approximately January 2022. History chronic iron deficiency anemia. Has received IV iron in the past, last received on 05/12/2022. Follows with Dr. Richards, hematology. Denies vaginal bleeding, melena, hematochezia, fever/chills, diaphoresis, hematemesis, diarrhea, constipation MEEKS, syncope, vision changes, neck pain, CP, palpitations, cough, sore throat, rhinorrhea, paresthesias, extremity edema, rashes, urinary symptoms. Per outpatient chart review: History colonoscopy: 07/15/2018: Examined colon normal, internal hemorrhoids. History EGD 07/15/2018: LA grade B esophagitis in distal esophagus without bleeding. Medium size hiatal hernia without Sheldon erosions. Stomach appeared normal. Duodenal bulb and second portion of duodenum normal. History of bone marrow biopsy 08/24/2018: Prominent eosinophilia suspected myeloproliferative neoplasm. Had NexGen myeloid disorders profile that was negative Principal Diagnosis Acute on chronic symptomatic anemia Obstructive uropathy Right ureteral calculus Urinary tract infection Endometrial thickening Discharge Data Allergies Allergy/AdvReac Type Severity Reaction Status Date / Time Penicillins Allergy Unknown RASH Verified 02/05/22 06:34 Sulfa (Sulfonamide Allergy Unknown Rash Verified 02/05/22 06:34 Antibiotics) methotrexate AdvReac Unknown Unknown Verified 02/05/22 06:34 MEDICATION FOR ARTHRITIS AdvReac Unknown MEDICATION Uncoded 02/05/22 06:34 INTERACTION, SEE NOTES BELOW - STOMACH ULCER Consultations 03/18/23 16:03 ED Decision to Admit Stat 05/17/23 20:34 Consult Gastroenterology Routine 03/19/23 08:00 Consult Urology Routine Procedures Performed Operation Date: 03/19/23 10:20 Actual Procedures p Cystoscopy, Bilateral Retrograde Pyelogram, Bilateral Stent Placement(Bilateral) - Gerardo Jones MD Ordered Studies 03/18/23 16:14 CT Abd and Pelvis [CT abd pelvis IV con only] Stat 03/19/23 09:40 FL retrograde includes kub Routine Hospital Course (1) Acute on chronic anemia: (2) Iron deficiency anemia: Patient is 72 y/o F with PMH chronic iron deficiency anemia, H/O PE with COVID and was treated with Eliquis, rheumatoid arthritis presented to ER because of abnormal labs - Hgb: 5.7 on outpatient labs 03/17/23. Increased fatigue, generalized weakness, increased SOB x 1 month. No Eliquis since 01/2022. Denies NSAID use. Acute on chronic symptomatic anemia H/O Iron deficiency anemia H/O internal hemorrhoids, esophagitis Denies any acute GI bleeding History colonoscopy: 07/15/2018: Examined colon normal, internal hemorrhoids. History EGD 07/15/2018: LA grade B esophagitis in distal esophagus without bleeding. Medium size hiatal hernia without Sheldon erosions. Stomach appeared normal. Duodenal bulb and second portion of duodenum normal. History of bone marrow biopsy 08/24/2018: Prominent eosinophilia suspected myeloproliferative neoplasm. Had NexGen myeloid disorders profile that was negative S/P 2 units PRBCs FOBT negative in ED Hb 5.8>7.5 Plan for outpatient EGD/colonoscopy Continue PPI twice daily Also received IV iron Appreciate GI input Monitor for bleeding issues Advised to follow-up with GI and hematology upon discharge Obstructive uropathy Right ureteral calculus Complicated UTI-POA --CT ABD:There are at least 3 obstructing calculi in the distal left ureter which measure up to 6 mm. This causes mild left-sided hydronephrosis. There is an 18 mm calculus in the right renal pelvis with mild right-sided hydronephrosis. There is associated urothelial thickening in the right renal pelvis with surrounding inflammation. Correlate with clinical findings and urinalysis for evidence of superimposed infection. Moderate hiatal hernia. The endometrium appears thickened for age measuring up to 15 mm. This is not well assessed by CT. Nonemergent pelvic ultrasound and gynecology evaluation is recommended. S/P cystoscopy, bilateral retrograde pyelogram with radiographic interpretation, bilateral stents placement by Dr. Jones on 03/19/2023 --Urine culture growing E.Coli Continue Rocephin>> transition to Omnicef Appreciate urology input Needs follow-up with urology upon discharge Endometrial thickening Incidental finding on CT Needs follow-up with AUTO JOB ESTIMATOR as outpatient (3) Restless leg syndrome: Continue Mirapex (4) Rheumatoid arthritis: History of RA After COVID-19 infection in 2020. Patient reports improvement of her RA symptoms and is no longer on Rituxan (5) Hypertension: BP mildly elevated Currently not on meds Monitor (6) Osteoporosis: Reports has not been taking Fosamax DVT Prophylaxis SCDs Re: Anemia, Hematuria Code Status Full Code Total Time Total Time Spent Total Time Spent (In Minutes): 56 minutes Discharge Plan Discharge Items Patient Disposition: Home - Self-Care Reason For Visit: ANEMIA Discharge Diagnosis: Acute on chronic symptomatic anemia Obstructive uropathy Right ureteral calculus Urinary tract infection Endometrial thickening Activity: Per Instructions section Exercise/Sports: Gradually increase as tolerated Non-emergency contact: Primary Care Provider, Surgeon, Tree And Shrub Worker and Urologist Call non-emergency contact if: you have any medication questions, your symptoms worsen, your pain is concerning for you and you have a fever Follow-up/Referrals: Staci Bashir CRNP [Nurse Practitioner] - (The urology office will call you with an appointment.) Aileen Raines CRNP [Nurse Practitioner] - (The GI office will call you with an appointment.) Dillon Viera PA-C [Primary Care Provider] - (Date & Time 03/25/2023 8:40 AM Provider Beto Márquez MD [facility] ) Diet: Regular Addtl Attending Provider Instructions: Follow-up with your primary care physician Dillon Viera PA-C on 03/25/2023 8:40 AM Follow-up with your marble coper Aileen RAIN for outpatient EGD, colonoscopy Follow-up with your urologist Staci RAIN as advised. Office will ca ll you with appointment Follow-up with your AUTO JOB ESTIMATOR for further evaluation of endometrial thickening noted on CT scan. -- Complete the antibiotic course cefdinir as prescribed for urinary tract infection. Seek immediate medical attention if your symptoms reoccur or worsen Please take all medications as instructed on discharge list below. Please call if you have any questions or problems. You can reach a [facility] hospitalist on duty at [facility] 24 hours a day by calling [phone] Pending Studies at Discharge: No Stand-Alone Forms: My [facility], Smoking Cessation Medications and DC Order Prescriptions: New tamsulosin 0.4 mg Capsule 0.4 mg PO QAM Qty: 30 0RF cefdinir 300 mg Capsule 300 mg PO BID Qty: 16 0RF ondansetron HCl 4 mg tablet 4 mg PO DAILY PRN (Reason: nausea and vomiting) 5 Days Qty: 5 0RF Continued trazodone 50 mg Tablet 50 mg PO HS alendronate [Fosamax] 70 mg tablet 70 mg PO WK Patient Comments: thursday calcium carbonate-vitamin D3 [Calcium 500 + D] 500 mg(1,250mg) -200 unit Tablet 1 tab PO DAILY pramipexole 0.5 mg tablet 1 mg PO DAILY PRN (Reason: Restless Leg(S)) ferrous sulfate [iron] 325 mg (65 mg iron) Tablet 325 mg PO DAILY oxybutynin chloride 5 mg tablet extended release 24hr 5 mg PO DAILY Changed pantoprazole 40 mg tablet,delayed release (DR/EC) 40 mg PO BID Qty: 60 1RF Discharge Orders: Discharge Order (Routine); Ordered 03/21/23 Ordered By: Eric Subramanian Admission Data Admit Date/Time: 03/18/23 17:01 Attending Provider: Eric Subramanian Admit Provider: Clay Brambila Primary Care Provider: Dillon Viera Other Providers: Clay Brambila ; Sonya Smith ; Pawan Blakely
== END 2023-03-21 14:48 | disposition home or self-care (01) | DRG 661 ==
LOC: ED 13:58 → SUATTDRO 17:01 → 2E 17:01
DX: M81.0 Age-related osteoporosis without current pathological fracture; N13.6 Pyonephrosis; Z87.442 Personal history of urinary calculi; Z88.2 Allergy status to sulfonamides; G25.81 Restless legs syndrome; Z79.01 Long term (current) use of anticoagulants; Z86.16 Personal history of COVID-19; Z88.8 Allergy status to other drugs, medicaments and biological substances; Z86.711 Personal history of pulmonary embolism; M06.9 Rheumatoid arthritis, unspecified; Z88.0 Allergy status to penicillin; D50.9 Iron deficiency anemia, unspecified

== ENCOUNTER 2023-04-16 08:36 | Inpatient (IN) ==
--- NOTE | 2023-04-10 09:31 | Anesthesiology Consultation ---
Date of Service April 10, 2023 Assessment & Plan (1) Encounter for pre-operative examination: - check with CBC DOS due to recent severe anemia and unclear etiology, ongoing work-up by [facility] heme/onc. - heme/onc 04/06/23 [facility]: "...Currently here for f/u visit today. Per patient report received two bags of Venofer while in the hospital. Continues to experience significant fatigue but is improved since in the hospital. Breathing is also improved but does still get SOB with minimal activity. Is not on any treatment for RA at the time. Has been doing well since having COVID, pain completely resolved...Planning lithotripsy for kidney stones on the . Denies blood in urine or stool...Hgb 5.7 on presentation. No CBC for one year prior. No signs of acute GI bleed present. Received 2 units of PRBCs as well as two doses of IV Venofer. Discharged on PPI BID and ferrous sulfate one tablet daily with vitamin C. Lab work 03/25/23 showing Hgb has improved to 9.4...EGD and Colonoscopy completed as outpatient on 04/02/23 that was remarkable for only esophagitis and medium sized hiatal hernia...update lab work today including cbc/diff, iron screen, ferritin, vitamin b12 and folic acid...consider for IV iron therapy based on results. Continue ferrous sulfate one tablet daily with vitamin c - tolerating well. Consider for capsule endoscopy for further evaluation of etiology of iron deficiency anemia..." - discharge summary 03/21/23 [facility]: "...Hgb: 5.7 on outpatient labs 03/17/23. Increased fatigue, generalized weakness, increased SOB x 1 month. No Eliquis since 01/2022. Denies NSAID use. Acute on chronic symptomatic anemia. H/O Iron deficiency anemia. H/O internal hemorrhoids, esophagitis. Denies any acute GI bleeding. History colonoscopy: 07/15/2018: Examined colon normal, internal hemorrhoids. History EGD 07/15/2018: LA grade B esophagitis in distal esophagus without bleeding. Medium size hiatal hernia without Sheldon erosions. Stomach appeared normal. Duodenal bulb and second portion of duodenum normal. History of bone marrow biopsy 08/24/2018: Prominent eosinophilia suspected myeloproliferative neoplasm. Had NexGen myeloid disorders profile that was negative. S/P 2 units PRBCs. FOBT negative in ED. Hb 5.8>7.5. Plan for outpatient EGD/colonoscopy..." - COVID screening: Per body technician/painter on 04/07/2023: Travel screen negative, no known COVID-19 positive contacts or current COVID-19 related symptoms in past 2 weeks. To surgeon's discretion if preop COVID testing is needed. Chart Review Chart Review: Acceptable Risk for Surgery and Patient NOT seen in Pre Admission Testing History Surgery Operation Date: 04/16/23 11:40 Proposed Procedures p Cystoscopy, Ureteronephroscopy, Retrograde Pyelogram, with Possible Ureteral Dilation, Laser Destruction or Extraction of the Stone, Insertion or Exchange Stent Catheter - Bilateral - Gerardo Jones MD Height/Weight Height: 5 ft 2 in Weight: 83.915 kg Allergies Allergy/AdvReac Type Severity Reaction Status Date / Time Penicillins Allergy Unknown RASH Verified 04/07/23 09:26 Sulfa (Sulfonamide Allergy Unknown Rash Verified 04/07/23 09:26 Antibiotics) methotrexate AdvReac Unknown Rash Verified 04/07/23 09:26 bandaids Allergy Unknown bruising Uncoded 04/07/23 09:38 MEDICATION FOR ARTHRITIS AdvReac Unknown MEDICATION Uncoded 04/07/23 09:26 INTERACTION, SEE NOTES BELOW - STOMACH ULCER Medications Home Medications Medication Instructions Recorded Confirmed Last Taken alendronate 70 mg tablet (Fosamax) 70 mg PO WK 11/23/18 04/07/23 01/21/22 calcium carbonate 500 mg-vitamin 1 tab PO QAM 11/23/18 04/07/23 02/04/22 D3 5 mcg (200 unit) tablet (Calcium 500 + D) trazodone 50 mg tablet 50 mg PO HS PRN Sleep 11/23/18 04/07/23 02/04/22 ferrous sulfate 325 mg (65 mg 325 mg PO QAM 08/11/21 04/07/23 02/04/22 iron) tablet (iron) pramipexole 0.5 mg tablet 1 mg PO DAILY PRN Restless Leg(S) 08/11/21 04/07/23 02/04/22 oxybutynin chloride 5 mg 5 mg PO QAM 03/18/23 04/07/23 Unknown tablet,extended release 24 hr cefdinir 300 mg capsule 300 mg PO BID #16 caps 03/21/23 04/07/23 Unknown pantoprazole 40 mg tablet,delayed 40 mg PO BID #60 tabs 03/21/23 04/07/23 Unknown release tamsulosin 0.4 mg capsule 0.4 mg PO QAM #30 caps 03/21/23 04/07/23 Unknown ascorbic acid (vitamin C) 250 mg 250 mg PO QAM 04/07/23 04/07/23 Unknown tablet (Vitamin C) ondansetron HCl 4 mg tablet 4 mg PO Q6H PRN Nausea 04/07/23 04/07/23 Unknown Past Medical History Medical History (Updated 04/10/23 @ 09:50 by Yenni Quesada PA-C) History of COVID-20 AUG 2021 - HOSPITALIZED [facility] RESIDUALS: STOMACH IRRITATION/IMPROVING & DECREASED BODY STRENGTH - IMPROVING History of kidney stones History of pulmonary embolus (PE) 2020, anticoagulation d/c History of recent blood transfusion 03/2023- due to recent blood loss; had colon and EGD @ [facility] 03/2023, unsure where blood loss is coming from Iron deficiency anemia recent hospitalization, transfused for Hgb at 4, ongoing work-up by [facility] heme/onc Mediastinal lymphadenopathy Osteoporosis Peptic ulcer HX Restless leg syndrome Rheumatoid arthritis Past Family History Family History Grandmother Family history of colon cancer Other Heart disease Hypertension Kidney disease Past Surgical History Surgical History History of colonoscopy History of endoscopy History of right cataract extraction Hx of cholecystectomy Hx of cystoscopy Hx of left cataract extraction Hx of lithotripsy Social History Smoking Status: Never smoker Do You Dip or Chew Tobacco: No Hx Alcohol Use: No Hx Substance Use: No substance use type: does not use Lab Results Anesthesia Preop Results Results Anesthesia Widget: WBC 10.69 K/ul (4.8-10.8) 03/21/23 Hgb 7.5 g/dl (12.0-16.0) L 03/21/23 Hct 26.1 % (37.0-47.0) L 03/21/23 Plt 315 K/uL (130-400) 03/21/23 Na 137 mmol/L (136-145) 03/21/23 K 3.9 mmol/L (3.5-5.1) 03/21/23 Cl 111 mmol/L (98-107) H 03/21/23 CO2 21 mmol/L (21-32) 03/21/23 BUN 18 mg/dl (6-23) 03/21/23 Creat 1.11 mg/dl (0.6-1.2) 03/21/23 Glucose Level 114 mg/dl (70-99(Fasting)) H 03/21/23 PT 11.0 Seconds (9.0-12.0) 03/18/23 PTT 20.4 Seconds (21.0-31.0) L 03/18/23 INR 1.0 (0.9-1.1) 03/18/23 Urine Color Yellow 03/18/23 Urine Appearance Clear (Clear) 03/18/23 Urine pH 6.0 (4.5-7.5) 03/18/23 Urine Specific Plato 1.040 (1.000-1.030) H 03/18/23 Urine Protein Negative (Negative) 03/18/23 Urine Glucose (UA) Negative (Negative) 03/18/23 Urine Ketones Negative (Negative) 03/18/23 Urine Blood Trace (Negative) H 03/18/23 Urine Nitrite Positive (Negative) A 03/18/23 Urine Bilirubin Negative (Negative) 03/18/23 Urine Urobilinogen Negative (Negative) 03/18/23 Urine Leukocyte Esterase 2+ (Negative) H 03/18/23 Urine WBC (Auto) >30 /hpf (0-5) H 03/18/23 Urine RBC (Auto) 0-4 /hpf (0-4) 03/18/23 Urine Hyaline Casts (Auto) 1-5 /lpf (0-5) 03/18/23 Urine Epithelial Cells (Auto) 5-10 /lpf (0-5) H 03/18/23 Urine Bacteria (Auto) 2+ (Negative) H 03/18/23 Urine Yeast Not Reportable 03/18/23 SARS-CoV-2, RNA, NAAT NEGATIVE (NEGATIVE) 03/18/23 Blood Type A Positive 03/18/23 Antibody Screen NEGATIVE 03/18/23 Testing Laboratory Results 04/06/2023 WBC: 7.7 H/H: PLATELETS: 425 Electrocardiogram Date: 03/19/23 NSR, rate 76 bpm Moderate voltage criteria for LVH, may be normal variant Chest X-Ray Date: 04/09/23 1. Mild cardiomegaly without radiographic evidence of congestive failure. 2. Changes of chronic lung disease as above with no airspace consolidation or pleural effusion. 3. Hiatal hernia. 4. Additional findings as above. Other Testing Abdomen pelvis CT 03/18/23 1. There are at least 3 obstructing calculi in the distal left ureter which measure up to 6 mm. This causes mild left-sided hydronephrosis. 2. There is an 18 mm calculus in the right renal pelvis with mild right-sided hydronephrosis. There is associated urothelial thickening in the right renal pelvis with surrounding inflammation. Correlate with clinical findings and urinalysis for evidence of superimposed infection. 3. Moderate hiatal hernia. 4. The endometrium appears thickened for age measuring up to 15 mm. This is not well assessed by CT. Nonemergent pelvic ultrasound and gynecology evaluation is recommended. 5. Additional findings as above.
[~2023-04-16 08:36] MED LIST: LR 15ML/HR IV SCH; ceFAZolin 2000MG 2,000 MG/15 ML SYR IV SCH
[2023-04-16] MEDS ORDERED: LIDOCAINE 2% 2 ML VIAL/AMP(20MG/ML) INFIL ONE (08:54)
[2023-04-16] MEDS ORDERED: ONDANSETRON INJ 2 MG/ML 2 ML VIAL ONE (08:54)
[2023-04-16] MEDS ORDERED: DEXAMETHASONE SOD INJ 4 MG/ML VIAL ONE (08:54)
[2023-04-16] MEDS ORDERED: fentaNYL citrate PF 100 MCG/2 ML VIAL ONE ×2 (08:54)
[2023-04-16] MEDS ORDERED: MIDAZOLAM HCL 1 MG/ML 2ML VIAL ONE (08:54)
[2023-04-16] MEDS ORDERED: PROPOFOL IV EMULSION 10 MG/ML 20 ML VIAL IV ONE (08:54)
[2023-04-16] MEDS ORDERED: ONDANSETRON INJ 2 MG/ML 2 ML VIAL IV PRN (09:03)
[2023-04-16] MEDS ORDERED: ATROPINE SULFATE 0.1 MG/ML 10ML SYR IV PRN (09:03)
--- NOTE | 2023-04-16 09:33 | History & Physical Bridge Note ---
Date of Service April 16, 2023 History & Physical Bridge Note I have examined the patient, reviewed the History & Physical and in the interval since the performance of the History & Physical I have noted the following changes of clinical significance: no changes noted
[2023-04-16 09:35] LABS: Hematocrit (blood only) 38.3 % (37.0-47.0); Hemoglobin 11.4 g/dl (12.0-16.0); Mean Corpuscular Hemoglobin 24.9 pg (25.0-34.0); Mean Corpuscular Hgb Conc 29.8 g/dL (32.0-36.0); Mean Corpuscular Volume 83.8 fL (80.0-100.0); Mean Platelet Volume 9.7 fL (9.4-12.4); Platelet Count 269 K/uL (130-400); RDW Standard Deviation 86.7 fL (36.4-46.3); Red Blood Count 4.57 M/uL (4.20-5.40); White Blood Count 7.23 K/ul (4.8-10.8)
[2023-04-16] MEDS ORDERED: DIATRIZOATE MEGLUMINE 30% 100ML VIAL INSTIL PRN (10:11)
--- NOTE | 2023-04-16 11:13 | Post Operative Brief Note ---
PG Immediate Post Op with CF Date of Surgery April 16, 2023 Pre & Post Diagnosis Bilateral nephrolithiasis Operation Date: 04/16/23 10:10 <No data on this case meets the specified criteria> Same I identified the patient and participated in the time-out.: Yes Procedure Cystoscopy, bilateral retrograde pyelograms with radiograph interpretation, left ureteroscopy, left ureteral stent removal, right ureteroscopy, laser lithotripsy, basket stone extraction, right ureteral stent exchange Operation Date: 04/16/23 10:10 <No data on this case meets the specified criteria> Surgeon Gerardo Jones MD Boom Truck Driver None Estimated Blood Loss 5 Findings See Below No stone in ureter or left kidney so suspect it was passed in the interim. Retrograde showed no extravasation. Opted to not leave a stent tissue has been significantly bothered by the stents and there was minimal manipulation. Large right renal stone dusted. Visualization was difficult to basket out several fragments but patient will require a second procedure which she was notified of before the surgery. Retrograde showed no extravasation. Stent in appropriate position. Specimens Specimen Description: A. Right Renal Stone for Chemical Analysis Drains Other (Right Ureteral Stent) Anesthesia Type General Complications none
--- NOTE | 2023-04-16 11:22 | Operative Report ---
PG Post Operative Report Pre & Post Diagnosis Operation Date: 04/16/23 10:10 Pre-Op Diagnosis: Calculus of Right and Left Ureter Post-Op Diagnosis: Calculus of Right and Left Ureter I identified the patient and participated in the time-out.: Yes Procedure Operation Date: 04/16/23 10:10 Actual Procedures p Cystoscopy, Bilateral Retrograde Pyelogram, Left Ureteronephroscopy with left ureteral stent removal, Right Ureteronephroscopy, Right laser lithotripsy with basket stone extraction, Right ureteral stent exchange(Bilateral) - Gerardo Jones MD Surgeon Gerardo Jones MD Polysilicon Preparation Worker None Estimated Blood Loss 5 Findings See Below No stone in ureter or left kidney so suspect it was passed in the interim. Retrograde showed no extravasation. Opted to not leave a stent tissue has been significantly bothered by the stents and there was minimal manipulation. Large right renal stone dusted. Visualization was difficult to basket out several fragments but patient will require a second procedure which she was notified of before the surgery. Retrograde showed no extravasation. Stent in appropriate position. Specimens Right renal stone Drains 6 Montenegrin by 24 cm right ureteral Anesthesia Type General Complications none Indications 72-year-old female with a large right renal pelvis stone and a small left distal obstructing stone who is status post bilateral ureteral stent placement. Preop urine culture grew no bacteria. She presents for bilateral stone treatment. She understands that she will likely need several procedures for the large right-sided stone Description of Procedure After informed consent was obtained, the patient was transported to the operative suite. General anesthesia was induced. They were placed in dorsal lithotomy position and prepped and draped in sterile fashion. They received preoperative Ancef. An appropriate surgical timeout was performed. 22 Montenegrin rigid cystoscope was inserted per urethra into the bladder. Using a grasper, the distal coil of the stent on the left side was externalized. A sensor wire was advanced in the kidney and confirmed fluoroscopically. Stent was removed. A semirigid ureteroscope was advanced alongside the wire into the ureter. There were no obvious stones the distal ureter. I advanced this up to the proximal ureter and saw no stones. I advanced the Super Stiff wire through the semirigid ureteroscope and remove the semirigid ureteroscope. Over the Super Stiff wire, I advanced a flexible ureteroscope in the ureter and removed the wire. I performed betancur pyeloscopy and betancur ureteroscopy. There were no stones in the kidney or the ureter after looking around for 5 to 10 minutes. I suspect she passed a stone in the interim. Retrograde pyelogram was shot which showed no extravasation. Flexible ureteroscope was removed and there were no injuries or stones in the ureter. I opted not to place a stent as she been significantly bothered by the stents and there was minimal manipulation. 22 Montenegrin rigid cystoscope was inserted per urethra into the bladder. Using a grasper the distal coil of the stent on the right side was externalized. A sensor wire was advanced in the kidney and confirmed fluoroscopically. A large alert right stone was seen in the right renal pelvis. Using a 10 Montenegrin dual- lumen, I advanced a Super Stiff wire and confirmed in the upper pole of the kidney. 10 Montenegrin dual-lumen was removed. A 12/14-36 cm ureteral access was advanced to the level of the right proximal ureter under fluoroscopic guidance without issue. Inner sheath and wire were removed. Flexible ureteroscope was advanced into the kidney and the stone was encountered. A 272 m fiber laser was advanced and under settings of 0.2 and 40 the stone was dusted. This took considerable time. I inserted a 0 tip Nitinol basket and removed several larger fragments however visualization was poor at this time and I opted to return for a second look procedure. Retrograde pyelogram was shot which showed no extravasation. Flexible ureteroscope and access sheath were removed under direct visualization and no injuries were seen. Rigid cystoscope was backloaded over the wire and a 6 Montenegrin by 24 cm right ureteral stent was deployed with a good proximal coil in the kidney. However, the distal coil sucked up into the ureter and I had to basket this out with the semirigid ureteroscope into the bladder. Proximal coil still remained in the kidney under fluoroscopy and distal coil was noted in the bladder under direct visualization. Bladder was emptied and scope was removed. This concluded the end of the case. All counts correct at the end of the case. I was present scrubbed and actively participated for the entire to the procedure I attest to the content of the Intraoperative Record and any orders documented therein. Any exceptions are noted below.
[2023-04-16] MEDS: fentaNYL citrate PF 100 MCG/2 ML VIAL IV PRN ×4 (11:30→11:45)
[2023-04-16] MEDS ORDERED: PROMETHAZINE HCL 6.25 MG in SODIUM CHLORIDE 0.9% 50 ML IV PRN (11:52)
[2023-04-16] MEDS ORDERED: PROMETHAZINE HCL INJ 25 MG/ML 1 ML VIAL ONE (11:55)
[2023-04-16] MEDS ORDERED: MEPERIDINE HCL 50 MG/ML CARP IV ONE (12:12)
[2023-04-16] MEDS ORDERED: MEPERIDINE HCL 25 MG/ML CARP/VIAL ONE (12:14)
[2023-04-16] MEDS ORDERED: VANCOMYCIN CONSULT ACTIVE PRN (12:57)
[2023-04-16] MEDS ORDERED: oxyCODONE HCL IR 5 MG TAB (IMMEDIATE RELEASE) PO PRN (12:58)
--- NOTE | 2023-04-16 13:04 | Anesthesiology Progress Note ---
Date of Service April 16, 2023 Anesthesia Post Procedure Vital Signs Vital Signs: Temp Pulse Resp BP BP Pulse Ox O2 Del Method 04/16/23 12:45 109 H 23 117/89 92 Nasal Cannula 04/16/23 12:35 105 H 24 124/97 92 Nasal Cannula 04/16/23 12:25 104 H 15 135/95 95 Nasal Cannula 04/16/23 12:15 101 H 20 154/84 H 96 Oxymask 04/16/23 12:05 37.1 C 94 H 22 155/94 H 95 Oxymask 04/16/23 11:55 90 20 139/94 95 Oxymask 04/16/23 11:45 87 17 157/94 H 94 Oxymask 04/16/23 11:35 83 22 151/91 H 94 Oxymask 04/16/23 11:25 36.7 C 89 19 145/79 H 95 Oxymask 04/16/23 09:11 36.7 C 79 22 136/84 95 Room Air O2 Flow Rate 04/16/23 12:45 4 04/16/23 12:35 4 04/16/23 12:25 3 04/16/23 12:15 4 04/16/23 12:05 4 04/16/23 11:55 4 04/16/23 11:45 4 04/16/23 11:35 4 04/16/23 11:25 6 04/16/23 09:11 Pain Intensity Abdomen: Pain Intensity: 5 Transfer of Care Handoff Completed per policy Notes Mental Status: alert / awake / arousable Patient Amnestic to Procedure: Yes Nausea / Vomiting: adequately controlled Pain: adequately controlled Airway Patency, RR, SpO2: see Notes below BP & HR: stable & adequate and see Notes below Hydration State: stable & adequate Anesthetic Complications: no major complications apparent Notes: pt shivering and little tachycardic, lspoke with Dr Jones and he will admit her over night in case it is a response to some bacteria due to procedure.
[2023-04-16] MEDS ORDERED: ACETAMINOPHEN 1,000 MG/100 ML VIAL IV STA (13:13)
[2023-04-16] MEDS ORDERED: ACETAMINOPHEN 1000 MG/100 ML IV IV ONE (13:14)
[2023-04-16] MEDS ORDERED: VANCOMYCIN HCL 1,750 MG in SODIUM CHLORIDE 0.9% 500 ML IV ONE (13:45)
--- NOTE | 2023-04-16 14:42 | Pharmacy Report ---
Pharmacy PK ABX Note - Date of Service April 16, 2023 - Assessment and Plan Assessment 72 year old F admitted with bilateral nephrolithiasis who is s/p cystoscopy, bilateral retrograde pyelograms with radiograph interpretation, left ureteroscopy, left ureteral stent removal, right ureteroscopy, laser lithotripsy, basket stone extraction, and right ureteral stent exchange. Patient was started on empiric vancomycin, cefepime and gentamicin IV directly following procedure. Patient febrile. BC pending. Plan Vancomycin * Loading dose: 1750 mg IV x 1 * Maintenance dose: 1250 mg IV every 24 hours * Regimen is predicted to achieve target AUC/VANE of 400-600 mg/L.hr * Level to be ordered if therapy is extended beyond 48 hours Gentamicin * Patient meets criteria for extended-interval aminoglycoside dosing. Elected to use the [employer] nomogram due to age and Scr above baseline. * A dose of 320 mg (5 mg/kg) IV x 1 dose * Dosage based on adjusted body weight for patients weighing > 120% of ideal body weight. * Random level ordered for 6-14 hours after the start of the infusion to ensure dosing interval is appropriate. Pharmacy will continue to follow and will adjust dose/frequency as necessary. Thank you. Pharmacy has transitioned to AUC monitoring for vancomycin. AUC/VANE is the preferred PK/PD target and is associated with decreased risk of nephrotoxicity compared to traditional trough targets.
[2023-04-16 14:45] LABS: Hematocrit (blood only) 39.8 % (37.0-47.0); Hemoglobin 11.4 g/dl (12.0-16.0); Mean Corpuscular Hemoglobin 24.6 pg (25.0-34.0); Mean Corpuscular Hgb Conc 28.6 g/dL (32.0-36.0); Mean Corpuscular Volume 85.8 fL (80.0-100.0); Mean Platelet Volume 10.2 fL (9.4-12.4); Platelet Count 180 K/uL (130-400); RDW Coefficient of Variation 28.8 % (11.5-14.5); RDW Standard Deviation 89.4 fL (36.4-46.3); Red Blood Count 4.64 M/uL (4.20-5.40); White Blood Count 9.76 K/ul (4.8-10.8)
[2023-04-16] MEDS ORDERED: GENTAMICIN CONSULT ACTIVE PRN (14:46)
[2023-04-16 14:58] LABS: BUN Creatinine Ratio 16.1 (10-20); Calcium 8.4 mg/dl (8.6-10.3); Creatinine Clr Calc Pharmacy 38.3 ml/min; Est GFR (African American) 44.2 ml/min; Est GFR (Non-African American) 38.2 ml/min; Potassium 4.4 mmol/L (3.5-5.1)
[2023-04-16 15:00] LABS: Anisocytosis Present; Basophils # (auto) 0.01 K/uL (0-0.2); Basophils % (auto) 0.1 %; Eosinophils # (auto) 0.01 K/uL (0-0.50); Eosinophils % (auto) 0.1 %; Immature Granulocytes # (auto) 0.05 K/uL (0.01-0.20); Immature Granulocytes % (auto) 0.5 %; Lymphocytes # (auto) 0.16 K/uL (1.2-3.4); Lymphocytes % (auto) 1.6 %; Monocytes # (auto) 0.03 K/uL (0.11-0.59); Monocytes % (auto) 0.3 %; Neutrophils % (auto) 97.4 %; Polychromasia 2+
[2023-04-16 15:02] LABS: Toxic Vacuolation 2+
--- NOTE | 2023-04-16 15:04 | Fluoroscopy Report ---
FL retrograde includes kub CLINICAL HISTORY: BILAT CYSTO STENT TECHNIQUE: 3 views were obtained with the C-arm in the OR with the above procedure. Total fluoroscopy time was 49.7 seconds. Radiation dose was 15.98 mGy. Comparison: Comparison is made to fluoroscopy 03/19/2023 FINDINGS/IMPRESSION: Intraoperative images were obtained of bilateral cystogram and right stent place ment. Please correlate with intraoperative fluoroscopy and operative report. ACT 112: Negative or not required by law. Electronically signed by: Gage Jensen M.D. 04/16/2023 3:03 PM
[2023-04-16] MEDS ORDERED: CEFEPIME 2,000 MG in SYRINGE 0 ML IV SCH (15:30)
[2023-04-16] MEDS: OXYBUTYNIN CHLORIDE XL 5 MG TABCR PO SCH (15:55)
[2023-04-16] MEDS: LACTATED RINGER'S 1,000 ML IV SCH (15:55)
[2023-04-16] MEDS ORDERED: COUGH DROP (SUGAR FREE) LOZ 24 LOZ/1 BOX BUCCAL ONE (15:57)
[2023-04-16] MEDS ORDERED: GENTAMICIN SULFATE 320 MG in DEXTROSE 5% 100 ML IV SCH (16:00)
[2023-04-16] MEDS: KETOROLAC TROMETHAMINE 15 MG/ML VIAL IV PRN (16:42)
[2023-04-16] MEDS: CEFEPIME 1,000 MG in SYRINGE 0 ML IV SCH (17:17)
[2023-04-16] MEDS: PANTOprazole 40 MG TAB PO SCH (20:05)
[2023-04-16] MEDS: traZODone HCL 50 MG TAB PO PRN (21:56)
[2023-04-16] MEDS: ONDANSETRON 4 MG OD TAB PO PRN (22:17)
[2023-04-16] MEDS: PRAMIPEXOLE DIHYDROCHLO 0.5 MG TAB PO PRN (22:18)
[2023-04-17] MEDS: CEFEPIME 1,000 MG in SYRINGE 0 ML IV SCH (03:30)
[2023-04-17 04:18] LABS: A calco-baum cmplx NotReported Not Detected (NotDetected); Bact fragilis Not Reported Not Detected (NotDetected); C auris Not Reported Not Detected (NotDetected); CTX-M Resistant Gene Not Detected (NotDetected); Calbicans Not Reported Not Detected (NotDetected); Candida glabrata Not Reported Not Detected (NotDetected); Candida krusei Not Reported Not Detected (NotDetected); Cneoformans/gatti Not Reported Not Detected (NotDetected); Cparapsilosis Not Reported Not Detected (NotDetected); Ctropicalis Not Reported Not Detected (NotDetected); E cloacae compx Not Reported Not Detected (NotDetected); Efaecalis Not Reported Not Detected (NotDetected); Efaecium Not Reported Not Detected (NotDetected); Enterobacterales Not Reported DETECTED (NotDetected); Escherichia coli Not Reported DETECTED (NotDetected); H influenzae Not Reported Not Detected (NotDetected); IMP Resistant Gene Not Detected (NotDetected); K aerogenes Not Reported Not Detected (NotDetected); KPC Resistant Gene Not Detected (NotDetected); Koxytoca Not Reported Not Detected (NotDetected); Kpneumoniae grp Not Reported Not Detected (NotDetected); Lmonocyt Not Reported Not Detected (NotDetected); N meningitidis Not Reported Not Detected (NotDetected); NDM Resistant Gene Not Detected (NotDetected); OXA 48 Like Resistant Gene Not Detected (NotDetected); P aeruginosa Not Reported Not Detected (NotDetected); Proteus spp Not Reported Not Detected (NotDetected); Salmonella spp Not Reported Not Detected (NotDetected); Smarcescens Not Reported Not Detected (NotDetected); Staph lugdunensis Not Reported Not Detected (NotDetected); Staph spp. Not Reported Not Detected (NotDetected); Staphaureus Not Reported Not Detected (NotDetected); Staphepi Not Reported Not Detected (NotDetected); Stenmaltophilia Not Reported Not Detected (NotDetected); Strep agal(GrpB) Not Reported Not Detected (NotDetected); Strep pneum Not Reported Not Detected (NotDetected); Strep pyog (GrpA) Not Reported Not Detected (NotDetected); Strep spp Not Reported Not Detected (NotDetected); VIM Resistant Gene Not Detected (NotDetected); mcr-1 Colistin Resistant Gene Not Detected (NotDetected)
[2023-04-17 05:07] LABS: Enterobacterales DETECTED (NotDetected)
[2023-04-17] MEDS: LACTATED RINGER'S 1,000 ML IV SCH ×2 (05:19→19:54)
[2023-04-17] MEDS: ONDANSETRON 4 MG OD TAB PO PRN ×3 (05:20→19:56)
--- NOTE | 2023-04-17 07:55 | Urology Progress Note ---
Date of Service April 17, 2023 Assessment & Plan (1) Calculus of proximal right ureter: (2) Ureteral calculus, left: (3) Sepsis: Plan 72-year-old female with bilateral obstructing ureteral calculi who is status post cystoscopy, bilateral retrograde pyelogram, left ureteroscopy with left stent removal, right ureteroscopy with laser lithotripsy, basket stone extraction and right ureteral stent placement on 04/16/2023. She unfortunately became tachycardic and febrile postoperatively and was admitted. Continue pain regimen. Add on scopolamine patch for nausea Follow up morning labs Blood cultures returning gram negative bacilli. Continue cefepime, d/c vanc. Repeat cultures - Continue regular diet, add on imodium - Continue home meds - Discussed that patient will likely be here for several days. Will also need to push back her second procedure scheduled for next week - Urology to follow Admission and Anticipated Discharge Date Admission Date: April 16, 2023 Subjective No acute issues overnight. Patient was admitted for observation as she becomes tachycardic and febrile yesterday. Afebrile with stable vitals today. Blood cultures are coming back positive for gram-negative bacilli. Currently on vancomycin and cefepime. Labs pending this morning but postoperative labs were surprisingly stable. Patient still reports feeling fairly poorly which is not surprising. She is reporting some nausea and diarrhea. Review of Systems Review of Systems: 14 point review of systems negative outside of what is listed above in HPI Physical Exam Physical Exam: General: Alert and oriented, no acute distress HEENT: Normocephalic, mucous membranes moist Pulmonary: Nonlabored respirations Abdomen: Nondistended Extremities: Moves all 4 spontaneously Neuro: No gross deficits Skin: Warm, dry, no rashes noted Results & Data Vital Signs (Past 12 Hours) Vital Signs Temp Pulse Resp BP Pulse Ox O2 Del Method 04/17/23 07:25 36.5 C 82 18 109/71 92 Room Air 04/17/23 04:22 36.7 C 85 18 100/64 94 Room Air 04/17/23 00:55 36.7 C 89 16 116/75 93 Room Air 04/16/23 21:16 37.0 C 102 H 16 117/72 93 Room Air PG Care Time/CCT Total # of Minutes Spent Total Time Spent with Patient: Total time spent is greater than 50% in coordination of care (as documented) at patient's floor/unit and/or counseling patient: Coding Level of Care Code 86747 SUB INP/OBS CARE 2MIN Diagnoses Calculus of proximal right ureter N20.1 Ureteral calculus, left N20.1 Sepsis A41.9
[2023-04-17] MEDS ORDERED: SCOPOLAMINE 1 MG TDSY TD SCH (08:00)
[2023-04-17] MEDS ORDERED: LOPERAMIDE HCL 2 MG CAP PO PRN (08:13)
[2023-04-17 08:37] LABS: BUN Creatinine Ratio 21.3 (10-20); Calcium 8.4 mg/dl (8.6-10.3); Creatinine Clr Calc Pharmacy 37.3 ml/min; Est GFR (African American) 42.7 ml/min; Est GFR (Non-African American) 36.9 ml/min; Potassium 4.5 mmol/L (3.5-5.1)
[2023-04-17 08:49] LABS: Hematocrit (blood only) 33.8 % (37.0-47.0); Hemoglobin 10.2 g/dl (12.0-16.0); Mean Corpuscular Hemoglobin 25.4 pg (25.0-34.0); Mean Corpuscular Hgb Conc 30.2 g/dL (32.0-36.0); Mean Corpuscular Volume 84.1 fL (80.0-100.0); Mean Platelet Volume 9.7 fL (9.4-12.4); Platelet Count 151 K/uL (130-400); RDW Standard Deviation 88.3 fL (36.4-46.3); Red Blood Count 4.02 M/uL (4.20-5.40); White Blood Count 45.86 K/ul (4.8-10.8)
[2023-04-17] MEDS ORDERED: VANCOMYCIN HCL 1,250 MG in SODIUM CHLORIDE 0.9% 250 ML IV SCH (09:00)
[2023-04-17] MEDS: PANTOprazole 40 MG TAB PO SCH ×2 (09:01→19:55)
[2023-04-17] MEDS: TAMSULOSIN HCL 0.4 MG CAP PO SCH (09:01)
[2023-04-17] MEDS: OXYBUTYNIN CHLORIDE XL 5 MG TABCR PO SCH (09:01)
[2023-04-17] MEDS: CHECK SCOPOLAMINE PATCH PLACEMENT SCH ×3 (09:01→22:21)
[2023-04-17 09:07] LABS: Anisocytosis Present; Basophils # (auto) 0.12 K/uL (0-0.2); Basophils % (auto) 0.3 %; Eosinophils # (auto) 0.15 K/uL (0-0.50); Eosinophils % (auto) 0.3 %; Immature Granulocytes # (auto) 2.29 K/uL (0.01-0.20); Lymphocytes # (auto) 0.99 K/uL (1.2-3.4); Lymphocytes % (auto) 2.2 %; Monocytes # (auto) 2.17 K/uL (0.11-0.59); Monocytes % (auto) 4.7 %; Neutrophils # (auto) 40.14 K/uL (1.40-6.50); Neutrophils % (auto) 87.5 %
[2023-04-17] MEDS: cefTRIAXone SODIUM 2,000 MG in DEXTROSE 5% 50 ML IV SCH (12:39)
[2023-04-17] MEDS: traZODone HCL 50 MG TAB PO PRN (23:24)
[2023-04-17] MEDS: PRAMIPEXOLE DIHYDROCHLO 0.5 MG TAB PO PRN (23:43)
[2023-04-18] MEDS: CHECK SCOPOLAMINE PATCH PLACEMENT SCH (07:27)
[2023-04-18] MEDS: ONDANSETRON 4 MG OD TAB PO PRN (07:32)
[2023-04-18 07:47] LABS: Hematocrit (blood only) 31.7 % (37.0-47.0); Hemoglobin 9.4 g/dl (12.0-16.0); Mean Corpuscular Hemoglobin 24.9 pg (25.0-34.0); Mean Corpuscular Hgb Conc 29.7 g/dL (32.0-36.0); Mean Corpuscular Volume 84.1 fL (80.0-100.0); Mean Platelet Volume 10.8 fL (9.4-12.4); Platelet Count 106 K/uL (130-400); RDW Coefficient of Variation 29.2 % (11.5-14.5); RDW Standard Deviation 87.6 fL (36.4-46.3); Red Blood Count 3.77 M/uL (4.20-5.40); White Blood Count 40.82 K/ul (4.8-10.8)
[2023-04-18 08:05] LABS: BUN Creatinine Ratio 21.5 (10-20); Calcium 8.6 mg/dl (8.6-10.3); Creatinine Clr Calc Pharmacy 49.1 ml/min; Est GFR (African American) 59.6 ml/min; Est GFR (Non-African American) 51.5 ml/min; Potassium 3.7 mmol/L (3.5-5.1)
[2023-04-18] MEDS: OXYBUTYNIN CHLORIDE XL 5 MG TABCR PO SCH (09:05)
[2023-04-18] MEDS: PANTOprazole 40 MG TAB PO SCH ×2 (09:05→20:52)
[2023-04-18] MEDS: TAMSULOSIN HCL 0.4 MG CAP PO SCH (09:05)
[2023-04-18] MEDS: LACTATED RINGER'S 1,000 ML IV SCH ×2 (09:05→22:52)
[2023-04-18] MEDS ORDERED: bisacodyL 5 MG TABEC PO PRN (11:21)
[2023-04-18] MEDS ORDERED: bisacodyL 5 MG TABEC PO ONE (11:21)
--- NOTE | 2023-04-18 11:24 | Urology Progress Note ---
Date of Service April 18, 2023 Assessment & Plan (1) Sepsis: Plan Sepsis after recent ureteroscopy Cultures pending, however I suspect there is some endotoxin within the stone release during the surgery Her preoperative culture from several weeks ago showed some E. coli, she has bee n treated appropriately and her perioperative culture after developing a fever is showing gram-negative bacilli and we are awaiting final speciation and sensitivities Repeat cultures of blood and urine on the have been thus far show no growth She has been afebrile and hemodynamically stable Her biggest complaint right now is bowel related We will plan to observe overnight tonight and if she remains afebrile and is feeling well, we will plan for discharge home tomorrow I hope to see her leukocytosis reducedif she develops severe diarrhea again I would have a relatively low threshold to check C. difficile Admission and Anticipated Discharge Date Admission Date: April 16, 2023 Subjective Some subjective improvement Only complaint today is abdominal discomfort Yesterday she had some diarrhea but took a solitary dose of Imodium and today she feels that she feels she probably is too hard and could require a stool softener No fevers overnight Hemodynamically stable White blood cell count remains grossly elevated at 40,000 Creatinine appropriate Cultures still pending Cultures from the showing gram-negative bacilli, repeat blood cultures yesterday are showing no growth thus far She remains on cefepime Physical Exam Constitutional: well developed and well nourished Respiratory: no respiratory distress Cardiovascular: Extremities: no pedal edema Gastrointestinal (Abdomen): Inspection/Auscultation: abdomen normal to inspection (Soft, nontender, not particularly distended) Results & Data Vital Signs (Past 12 Hours) Vital Signs Temp Pulse Resp BP Pulse Ox O2 Del Method 04/18/23 08:13 36.8 C 69 18 147/81 H 95 Room Air 04/18/23 02:20 36.3 C L 99 H 18 158/75 H 94 Room Air PG Care Time/CCT Total # of Minutes Spent Total Time Spent with Patient: Total time spent is greater than 50% in coordination of care (as documented) at patient's floor/unit and/or counseling patient: Coding Level of Care Code 05420 SUB INP/OBS CARE 2/35MIN Diagnoses Sepsis A41.9
[2023-04-18] MEDS: KETOROLAC TROMETHAMINE 15 MG/ML VIAL IV PRN (11:49)
[2023-04-18] MEDS: cefTRIAXone SODIUM 2,000 MG in DEXTROSE 5% 50 ML IV SCH (12:34)
[2023-04-19] MEDS: traZODone HCL 50 MG TAB PO PRN (00:31)
[2023-04-19] MEDS: OXYBUTYNIN CHLORIDE XL 5 MG TABCR PO SCH (08:46)
[2023-04-19] MEDS: PANTOprazole 40 MG TAB PO SCH (08:46)
[2023-04-19] MEDS: TAMSULOSIN HCL 0.4 MG CAP PO SCH (08:46)
[2023-04-19] MEDS: ONDANSETRON 4 MG OD TAB PO PRN (08:47)
[2023-04-19] MEDS: cefTRIAXone SODIUM 2,000 MG in DEXTROSE 5% 50 ML IV SCH (11:55)
--- NOTE | 2023-04-19 11:56 | Urology Progress Note ---
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 More complicated because of her allergies She has been on ceftriaxone now for several days and is afebrile She is hemodynamically stable Unfortunately sensitivities did not seem to test this against nitrofurantoin and other oral antibiotics all seem to have some allergic potential We will plan to have her receive another dose of ceftriaxone now which should cover her for an additional 24 hours and then discharge home She will have nitrofurantoin at home as previously prescribedI have instructed her that if she experiences fevers chills or worsening condition she needs to return to the ER or contact us Admission and Anticipated Discharge Date Admission Date: April 16, 2023 Subjective Subjectively much better today Feels back to herself Is anxious to go home No fevers or chills overnight Bowel function has been No abdominal discomfort Physical Exam Constitutional: well developed and well nourished Respiratory: no respiratory distress Cardiovascular: Extremities: no pedal edema Gastrointestinal (Abdomen): Inspection/Auscultation: abdomen normal to inspection Results & Data Vital Signs (Past 12 Hours) Vital Signs Temp Pulse Resp BP Pulse Ox O2 Del Method 04/19/23 07:25 36.9 C 70 18 161/92 H 94 Room Air PG Care Time/CCT Total # of Minutes Spent Total Time Spent with Patient: Total time spent is greater than 50% in coordination of care (as documented) at patient's floor/unit and/or counseling patient: Coding Level of Care Code 45882 SUB INP/OBS CARE 2/35MIN Diagnoses Sepsis A41.9
--- NOTE | 2023-04-19 19:47 | Discharge Summary ---
Date of Service April 19, 2023 Admission HPI Per Admitting Provider 72-year-old female, accompanied by , presents to discuss bilateral ureterolithiasis treatment status post bilateral stents placed by Dr. Jones on 03/19/2023. Admission Exam Per Admitting Provider Constitutional well developed and well nourished; no acute distress Respiratory normal respiratory effort; no respiratory distress and no labored breathing Musculoskeletal Moves all 4 extremities spontaneously. Psychiatric Orientation: alert, oriented x 3 and cooperative Principal Diagnosis Bilateral ureterolithiasis Discharge Exam Constitutional:well developed and well nourishedRespiratory:no respiratory distressCardiovascular:Extremities: no pedal edemaGastrointestinal (Abdomen): Inspection/Auscultation: abdomen normal to inspection Discharge Data Allergies Allergy/AdvReac Type Severity Reaction Status Date / Time Penicillins Allergy Unknown RASH Verified 04/16/23 09:02 Sulfa (Sulfonamide Allergy Unknown Rash Verified 04/16/23 09:02 Antibiotics) methotrexate AdvReac Unknown Rash Verified 04/16/23 09:02 adhesive tape AdvReac Bandaids = Verified 04/16/23 09:13 bruising MEDICATION FOR ARTHRITIS AdvReac Unknown MEDICATION Uncoded 04/16/23 09:02 INTERACTION, SEE NOTES BELOW - STOMACH ULCER Procedures Performed Operation Date: 04/16/23 10:10 Actual Procedures p Cystoscopy, Bilateral Retrograde Pyelogram, Left Ureteronephroscopy , Right Ureteronephroscopy, Right laser lithotripsy with basket stone extraction,(Bilateral) - Gerardo Jones MD s Right ureteral stent exchange, left ureteral stent removal - Gerardo Jones MD Ordered Studies 04/16/23 [place] retrograde includes kub Routine Hospital Course (1) Ureteral calculus, left: (2) Calculus of proximal right ureter: (3) Sepsis: Plan Patient underwent above noted procedure on 04/16/23. In PACU, she was tachycardic and febrile with rigors. She was started on broad spectrum antibiotics in the form of vancomycin and cefepime and admitted to the floor. Initial labs were normal however labs on POD1 showed a significant leukocytosis. Blood cultures grew E. coli and she was narrowed down to ceftriaxone. She remained afebrile with stable vitals and voiced desire to go home on 04/19/23. Her WBC had downtrended the day prior. She was discharged on nitrofurantoin. Total Time Total Time Spent Total Time Spent (In Minutes): 10 Discharge Plan Discharge Items Patient Disposition: Home - Self-Care Reason For Visit: Calculus of Right and Left Ureter Discharge Diagnosis: Calculus of right and left ureteral Activity: Resume your previous activity Non-emergency contact: Surgeon and Urologist Call non-emergency contact if: you have any medication questions and your temperature is above 101 Follow-up/Referrals: Nikita Tian MD [Physician] - ([facility] office will call the patient with a hospital follow up appointment.) Dillon Viera PA-C [Primary Care Provider] - Diet: Regular Addtl Attending Provider Instructions: -Take Tylenol and ibuprofen as needed for discomfort. Additional narcotics sent to your pharmacy. -Flomax and oxybutynin as needed for stent discomfort. This can cause dry mouth, dry eyes and constipation. Take MiraLAX [id number] as needed for constipation. -Normal to see blood in your urine while stent in place. As long as you are able to urinate, this is okay. -There are no restrictions while a stent is in place. Antibiotics have been sent to your pharmacy to take up until the next procedure Call with worsening pain or fevers. -You will get a call to schedule an appointment to set up a second surgery for your right stone. Pending Studies at Discharge: No Stand-Alone Forms: Anesthesia/Sedation, Adult, [facility] Medications and DC Order Prescriptions: New oxycodone 5 mg tablet 5 mg PO Q6H PRN (Reason: pain) Qty: 7 0RF nitrofurantoin monohyd/m-cryst [Macrobid] 100 mg capsule 100 mg PO BID 7 Days Qty: 14 0RF Rx Instructions: must administer with a meal/food Continued trazodone 50 mg Tablet 50 mg PO HS PRN (Reason: Sleep) alendronate [Fosamax] 70 mg tablet 70 mg PO WK Patient Comments: thursday calcium carbonate-vitamin D3 [Calcium 500 + D] 500 mg(1,250mg) -200 unit Tablet 1 tab PO QAM pramipexole [Mirapex] 0.5 mg tablet 1 mg PO DAILY PRN (Reason: Restless Leg(S)) ferrous sulfate [iron] 325 mg (65 mg iron) Tablet 325 mg PO QAM ascorbic acid (vitamin C) [Vitamin C] 250 mg Tablet 250 mg PO QAM ondansetron HCl 4 mg Tablet 4 mg PO Q6H PRN (Reason: Nausea) tamsulosin [Flomax] 0.4 mg capsule 0.4 mg PO QAM oxybutynin chloride 5 mg tablet extended release 24hr 5 mg PO QAM pantoprazole 40 mg tablet,delayed release (DR/EC) 40 mg PO BID Qty: 60 1RF Discharge Orders: Discharge Order (Routine); Ordered 04/19/23 Ordered By: Nikita Meza/Other Patient Handouts: DVT Post Op Prevention Admission Data Admit Date/Time: 04/16/23 12:57 Attending Provider: Gerardo Jones Admit Provider: Gerardo Jones Primary Care Provider: Dillon Viera Other Interventions: Discharge Summary Assessment (RN) Last Done: 04/19/23 13:08 Coding Level of Care Code 16923 IN/OBS DISCH 30 MIN/LESS Diagnoses Ureteral calculus, left N20.1 Calculus of proximal right ureter N20.1 Sepsis A41.9
== END 2023-04-19 13:30 | disposition home or self-care (01) | DRG 659 ==
LOC: ASU 08:36 → 3W 12:57